=== PATIENT | male | born 1930 | race Caucasian/White ===

== ENCOUNTER 2016-08-23 11:17 | Day surgery (SDC) | payer MEDICARE ==
[~2016-08-23] VITALS: Ht 180.3 cm; Wt 91.8 kg
[~2016-08-23 11:17] MED LIST: ASPI81TA82 PO; ATOR40TA PO; CHOL4POW PO; COUM2.5T PO; COUM5TAB PO; FURO1TAB93 PO; ISOS30 PO; NITR0.4S SL; PANT20TA PO; PERC5TAB12 PO; POTA-243 PO; SERT25TA83 PO
[2016-08-23 12:18] VITALS: BP 112/56; PULSE 81; RESP 18; TEMP 98.1; O2SAT 97
[2016-08-23] MEDS ORDERED: TRAM50TA PO (12:23)
[2016-08-23] MEDS ORDERED: FURO40TA PO (12:23)
[2016-08-23] MEDS ORDERED: ATOR40TA16 PO (12:23)
[2016-08-23] MEDS ORDERED: WARF-18 PO (12:23)
[2016-08-23] MEDS ORDERED: WARF-23 PO (12:23)
[2016-08-23] MEDS ORDERED: VENTAER INH (12:23)
[2016-08-23] MEDS ORDERED: ALPR0.5T3 PO (12:23)
[2016-08-23] MEDS ORDERED: PANT20 PO (12:23)
[2016-08-23] MEDS ORDERED: POTA10CA PO (12:23)
[2016-08-23] MEDS ORDERED: HEPARIN-NS/PF INJ 500 ML ONE (13:56)
[2016-08-23] MEDS ORDERED: MIDAZOLAM HCL 2 MG/2 ML VIAL ONE (13:57)
[2016-08-23] MEDS ORDERED: IOHEXOL 350 MG/ML 100 ML BTL (for Cath Lab) OTHER ONE (16:02)
[2016-09-08] MEDS ORDERED: MORPHINE SULFATE 4 MG/ML INJ IV PRN (22:00)
[2016-09-09] MEDS ORDERED: HEPARIN SODIUM - IV 10,000 UNITS/10 ML VIAL ONE (09:41)
[2016-09-09] MEDS ORDERED: VANCOMYCIN HCL 1000 MG VIAL ONE (09:57)
[2016-09-09] MEDS ORDERED: BUPIVACAINE HCL PF 0.5% 30 ML VIAL ONE (11:04)
[2016-09-09] MEDS ORDERED: DO NOT ADM ANY ANTICOAGULANT DRUGS PRN (15:00)
--- NOTE | 2016-09-13 12:29 | MA ---
cc: RODRICK OLVERA MD DATE 08/23/2016 PROCEDURE PERFORMED Cardiac catheterization PROCEDURAL STATEMENT The patient was prepped and draped in the usual fashion. A 6-sheath was inserted percutaneously into the right femoral artery. Coronary angiography was done with Jaxon preformed catheters. Left ventriculography was done with a pigtail catheter. RESULTS Aortic pressure was 130/70. Left ventricular end-diastolic pressure was 15. There was no gradient across the aortic valve. CORONARY ANGIOGRAPHY The left main coronary artery was normal. The left anterior descending artery demonstrated no significant stenoses noted in the LAD or in its major branches. The left circumflex artery demonstrated some mild luminal irregularities at its origin, but no significant stenoses were seen. The right coronary artery was anatomically dominant. There is no significant stenoses noted. Noted on fluoroscopy that there was rather heavy calcification of the LAD and circumflex arteries. LEFT VENTRICULOGRAPHY Left ventriculography demonstrated a mildly dilated left ventricular cavity with an overall ejection fraction estimated at 25-30%. There was no gradient. No abnormality of the outflow track. No significant mitral regurgitation was seen. CONCLUSIONS The patient demonstrates essentially normal coronaries with rather severe left ventricular dysfunction and mild left ventricular dilatation. MD KENYA Fairbanks/WILD /12:27 PM /12:30 PM
== END 2016-08-23 19:14 | disposition home or self-care (01) ==
LOC: HDOC 11:17 → HDIC 11:18 → HDOC 19:14
PROVIDERS: ATTEND Internal Medicine Cardiovascular Disease
DX: I51.7 Cardiomegaly (principal); R07.89 Other chest pain; I48.91 Unspecified atrial fibrillation; I42.9 Cardiomyopathy, unspecified; Z87.891 Personal history of nicotine dependence
CPT/HCPCS: 93458; C1760; C1769; C1893; G0269; J1644; J2250; Q9967

== ENCOUNTER 2016-09-04 18:10 | Inpatient (IN) | payer MEDICARE ==
[2016-09-04] VITALS (10 sets, daily range): BP systolic 122–157; BP diastolic 62–76; PULSE 84–95; RESP 18–20; TEMP 97.6–98; O2SAT 88–100
[~2016-09-04] VITALS: Ht 180.3 cm; Wt 87.7 kg
[~2016-09-04 18:10] MED LIST changes: +ALPR0.5T3 PO; -ASPI81TA82 PO; -ATOR40TA PO; +ATOR40TA16 PO; -CHOL4POW PO; -COUM2.5T PO; -COUM5TAB PO; -FURO1TAB93 PO; +FURO40TA PO; -ISOS30 PO; -NITR0.4S SL; +PANT20 PO; -PANT20TA PO; -PERC5TAB12 PO; -POTA-243 PO; +POTA10CA PO; -SERT25TA83 PO; +TRAM50TA PO; +VENTAER INH; +WARF-18 PO; +WARF-23 PO
[2016-09-04] MEDS ORDERED: NITROGLYCERIN-DEXTROSE INJ 250 ML ONE (18:19)
[2016-09-04] MEDS ORDERED: ASPIRIN 325 MG TAB ONE ×2 (18:19→18:20)
[2016-09-04] MEDS ORDERED: HEPARIN SODIUM - IV 10,000 UNITS/10 ML VIAL ONE ×2 (18:20→18:57)
[2016-09-04] MEDS ORDERED: ASPIRIN 81 MG CHEW TAB PO STA (18:21)
[2016-09-04] MEDS ORDERED: HEPARIN-D5W INJ 250 ML ONE (18:23)
[2016-09-04] MEDS: HEPARIN-D5W INJ 250 ML IV SCH (18:29)
[2016-09-04] MEDS ORDERED: NITROGLYCERIN-DEXTROSE INJ 250 ML IV SCH (18:30)
[2016-09-04] MEDS ORDERED: HEPARIN SODIUM - IV 10,000 UNITS/10 ML VIAL IV ONE (18:30)
--- NOTE | 2016-09-04 18:38 | RADRPT ---
EXAM DATE/TIME: 09/04/2016 18:18 [place] COMPARISON: CHEST SINGLE AP, May 19, 2015, 16:55. INDICATIONS : Chest pains. STEMI alert. MEDICAL HISTORY : Atrial fibrillation. SURGICAL HISTORY : None. ENCOUNTER: Initial ACUITY: 1 day PAIN SCORE: 7/10 LOCATION: Chest, midline. FINDINGS: A single AP portable supine view of the chest was obtained and demonstrates mild cardiomegaly atheros clerotic changes in the aorta with calcification. There is no focal consolidation or effusion. There are multiple overlying electrocardiogram leads. The bony thorax remains intact. CONCLUSION: Mild cardiomegaly with no evidence of pulmonary edema. Olaf Butterfield MD on September 04, 2016 at 18:36 Board Certified Radiologist. This report was verified electronically.
[2016-09-04] MEDS ORDERED: IOHEXOL 350 MG/ML 100 ML BTL (for Cath Lab) OTHER ONE (18:55)
[2016-09-04] MEDS ORDERED: HEPARIN-NS/PF INJ 500 ML ONE ×3 (18:56→20:58)
[2016-09-04 18:58] LABS: I-STAT POTASSIUM 3.7 MMOL/L (3.5-4.9)
[2016-09-04] MEDS ORDERED: NITROGLYCERIN INJ 5 ML ONE (18:58)
[2016-09-04] MEDS ORDERED: MORPHINE SULFATE 4 MG/ML INJ IV PUSH ONE (19:00)
[2016-09-04 19:03] LABS: APTT (PATIENT) 27.3 SEC (24.3-30.1); INTERNATIONAL NORMALIZED RATIO 1.5 RATIO; PROTHROMBIN TIME - PATIENT 16.5 SEC (9.8-11.6)
[2016-09-04 19:04] LABS: BASOPHIL # 0.1 TH/MM3 (0-0.2); BASOPHIL % 0.7 % (0.0-2.0); EOSINOPHIL # 0.1 TH/MM3 (0-0.4); EOSINOPHIL % 1.4 % (0.0-4.0); HEMATOCRIT 43.8 % (39.0-51.0); HEMO FLAGS DIFF FINAL; LYMPH % 21.2 % (9.0-44.0); LYMPHOCYTE # 1.6 TH/MM3 (1.0-4.8); MEAN CELL VOLUME 94.2 FL (80.0-100.0); MEAN CORPUSCULAR HEMOGLOBIN 31.9 PG (27.0-34.0); MEAN CORPUSCULAR HGB CONC 33.8 % (32.0-36.0); MONO % 9.1 % (0.0-8.0); NEUT % 67.6 % (16.0-70.0); PLATELET COUNT 152 TH/MM3 (150-450); RED BLOOD COUNT 4.65 MIL/MM3 (4.50-5.90); RED CELL DISTRIBUTION WIDTH 14.3 % (11.6-17.2); WHITE BLOOD COUNT 7.4 TH/MM3 (4.0-11.0)
[2016-09-04 19:19] LABS: MAGNESIUM 2.2 MG/DL (1.5-2.5)
--- NOTE | 2016-09-04 19:31 | PD ---
HPI Chief Complaint: STEMI Alert Time Seen by Provider: 18:21 Travel History International Travel<30 days: No Contact w/Intl Traveler<30days: No Traveled to known affect area: No History of Present Illness HPI Patient is am 86 year old male with coronary artery disease, NM, CHF, coronary artery stents atrial fibrillation currently on Coumadin presents to ER with c/o of chest pain. Patient reports that chest pain began around 2:45pm while he was walking to his neighbors home. Reports that he was having "pressure/crushing pain to his chest." Reports that chest pain is substernal in nature and radiates to his right chest. Reports that he is feeling sob with his symptoms. PFSH Past Medical History Hx Anticoagulant Therapy: Yes (COUMADIN) Arthritis: Yes Asthma: Yes (uses inhaler, not used in 1 year) Atrial Fibrillation: Yes Autoimmune Disease: No Blood Disorders: No Anxiety: Yes Depression: No Heart Rhythm Problems: Yes (ATRIAL FIBRILATION ) Cancer: No Cardiac Catheterization: Yes Cardiovascular Problems: Yes High Cholesterol: Yes Chest Pain: Yes Congestive Heart Failure: Yes COPD: Yes Cerebrovascular Accident: Yes (TIA) Coronary Artery Disease: Yes Diabetes: No Diminished Hearing: No Endocrine: No Gastrointestinal Disorders: No GERD: Yes Glaucoma: No Genitourinary: No Headaches: Yes Hepatitis: No Hiatal Hernia: No Heparin Induced Thrombocytopen: No Hypertension: Yes Immune Disorder: No Implanted Vascular Access Dvce: No Kidney Stones: No Medical other: Yes (ARTHRITIS, BACK PROBLEMS, HX BRAIN CONCUSSION,? LEG BLOOD CLOTS) Musculoskeletal: Yes (LOWER BACK PAIN) Neurologic: No Psychiatric: No Reproductive: No Respiratory: Yes (COPD) Integumentary: No Immunizations Current: Yes Migraines: Yes Myocardial Infarction: Yes (X3) Renal Failure: No Seizures: No Sleep Apnea: No Thyroid Disease: No Ulcer: No PNEUMOCCOCAL Vaccine (Year): 2009 Past Surgical History Abdominal Surgery: No AICD: No Appendectomy: No Arteriovenous Shunt: No Body Medical Devices: PLATE IN RIGHT WRIST, 2 HEART STENTS, LT HIP Cardiac Surgery: No Cholecystectomy: No Coronary Artery Bypass Graft: No Coronary Stent: Yes (X2; MOST RECENT WAS 2009) Ear Surgery: No Eye Surgery: Yes (LEFT CATARACT) Insulin Pump: No Joint Replacement: No Neurologic Surgery: No Oral Surgery: Yes Pacemaker: No Thoracic Surgery: No Tonsillectomy: Yes Other Surgery: Yes Social History Alcohol Use: Yes (WINE SELDOM) Tobacco Use: No (HX) Substance Use: No Allergies-Medications (Allergen,Severity, Reaction): Coded Allergies: Penicillin (Verified Allergy, Severe, EDEMA, HIVES, 05/19/15) Reported Meds & Prescriptions Reported Meds & Active Scripts Active Reported Warfarin 5 Mg Tab 5 Mg PO DAILY Warfarin 2.5 Mg Tab 2.5 Mg PO DAILY Ventolin Hfa 18 GM Inh (Albuterol Sulfate) 90 Mcg/Act Aer 2 Puff INH Q4-6H PRN Potassium Chloride ER (Potassium Chloride) 10 Meq Cap 10 Meq PO BID Furosemide 40 Mg Tab 40 Mg PO BID Atorvastatin (Atorvastatin Calcium) 40 Mg Tab 40 Mg PO HS Alprazolam 0.5 Mg Tab 0.5 Mg PO Q4H PRN Review of Systems General / Constitutional: No: Fever Eyes: No: Visual changes HENT: No: Headaches Cardiovascular: Positive: Chest Pain or Discomfort Respiratory: Positive: Shortness of Breath Gastrointestinal: No: Abdominal Pain Genitourinary: No: Dysuria Musculoskeletal: No: Pain Skin: No Rash Neurologic: No: Weakness Psychiatric: No: Depression Endocrine: No: Polydipsia Hematologic/Lymphatic: No: Easy Bruising Physical Exam Narrative GENERAL: Severe distress, patient holding his chest wall complaining of chest pain SKIN: Focused skin assessment warm. Patient diaphoretic during exam HEAD: Atraumatic. Normocephalic. EYES:No injection or drainage. ENT: No nasal bleeding or discharge. Mucous membranes pink and moist. NECK: Trachea midline. No JVD. CARDIOVASCULAR: Regular rate and rhythm. No murmur appreciated. RESPIRATORY: No accessory muscle use. Clear to auscultation. Breath sounds equal bilaterally. GASTROINTESTINAL: Abdomen soft, non-tender, nondistended. Hepatic and splenic margins not palpable. MUSCULOSKELETAL: No obvious deformities. No clubbing. No cyanosis. No edema. NEUROLOGICAL: Awake and alert. No obvious cranial nerve deficits. Motor grossly within normal limits. Normal speech. PSYCHIATRIC: anxious Data Data Last Documented VS Vital Signs Date Time Temp Pulse Resp B/P Pulse Ox O2 Delivery O2 Flow Rate FiO2 09/04/16 18:49 84 18 124/71 97 Nasal Cannula 2 09/04/16 18:15 98.0 Orders Aspirin (Aspirin) (09/04/16 18:19) Nitroglycerin-Dextrose Inj (Nitroglyceri (09/04/16 18:19) Heparin Inj (Heparin Inj) (09/04/16 18:20) Aspirin (Aspirin) (09/04/16 18:20) Troponin I (09/04/16 18:21) Ckmb (Isoenzyme) Profile (09/04/16 18:21) Complete Blood Count With Diff (09/04/16 18:21) I-Stat Profile (09/04/16 18:21) I-Stat Creatinine (09/04/16 18:21) Magnesium (Mg) (09/04/16 18:21) Prothrombin Time / Inr (Pt) (09/04/16 18:21) Act Partial Throm Time (Ptt) (09/04/16 18:21) B-Type Natriuretic Peptide (09/04/16 18:21) Chest, Single Ap (09/04/16 18:21) Electrocardiogram (09/04/16 18:21) Oxygen Administration (09/04/16 18:21) Iv Access Insert/Monitor (09/04/16 18:21) Oximetry (09/04/16 18:21) Aspirin Chew (Aspirin Chew) (09/04/16 18:21) Heparin Infusion MERON.Q1H (09/04/16 18:23) Heparin-D5w Inj (Heparin-D5w Inj) (09/04/16 18:23) Heparin Inj (Heparin Inj) (09/04/16 18:30) Heparin Inj (Heparin Inj) (09/05/16 00:30) Heparin Inj (Heparin Inj) (09/05/16 00:30) Heparin-D5w Inj (Heparin-D5w Inj) (09/04/16 18:30) Nitroglycerin-Dextrose Inj (Nitroglyceri (09/04/16 18:30) Morphine Inj (Morphine Inj) (09/04/16 19:00) Heparin-Ns/Pf Inj (Heparin-Ns/Pf Inj) (09/04/16 18:56) Heparin Inj (Heparin Inj) (09/04/16 18:57) Nitroglycerin Inj (Nitroglycerin Inj) (09/04/16 18:58) Cardiac Catheterization (09/04/16 ) Heparin-Ns/Pf Inj (Heparin-Ns/Pf Inj) (09/04/16 19:34) Labs Laboratory Tests Test 09/04/16 18:28 White Blood Count 7.4 TH/MM3 Red Blood Count 4.65 MIL/MM3 Hemoglobin 14.8 GM/DL Bedside Hemoglobin 14.6 G/DL Hematocrit 43.8 % Bedside Hematocrit 43.0 % Mean Corpuscular Volume 94.2 FL Mean Corpuscular Hemoglobin 31.9 PG Mean Corpuscular Hemoglobin 33.8 % Concent Red Cell Distribution Width 14.3 % Platelet Count 152 TH/MM3 Mean Platelet Volume 8.8 FL Neutrophils (%) (Auto) 67.6 % Lymphocytes (%) (Auto) 21.2 % Monocytes (%) (Auto) 9.1 % Eosinophils (%) (Auto) 1.4 % Basophils (%) (Auto) 0.7 % Neutrophils # (Auto) 5.0 TH/MM3 Lymphocytes # (Auto) 1.6 TH/MM3 Monocytes # (Auto) 0.7 TH/MM3 Eosinophils # (Auto) 0.1 TH/MM3 Basophils # (Auto) 0.1 TH/MM3 CBC Comment DIFF FINAL Differential Comment Prothrombin Time 16.5 SEC Prothromb Time International 1.5 RATIO Ratio Activated Partial 27.3 SEC Thromboplast Time Bedside Sodium 142 MMOL/L Bedside Potassium 3.7 MMOL/L Bedside Chloride 105 MMOL/L Bedside Blood Urea Nitrogen 16 MG/DL Bedside Creatinine 1.1 MG/DL Bedside Glucose 164 MG/DL Magnesium Level 2.2 MG/DL Total Creatine Kinase 64 U/L Troponin I 0.07 NG/ML B-Type Natriuretic Peptide 365 PG/ML MDM Medical Decision Making Medical Screen Exam Complete: Yes Emergency Medical Condition: Yes Interpretation(s) Vital Signs Date Time Temp Pulse Resp B/P Pulse Ox O2 Delivery O2 Flow Rate FiO2 09/04/16 18:49 84 18 124/71 97 Nasal Cannula 2 09/04/16 18:48 88 20 152/75 97 Nasal Cannula 2 09/04/16 18:42 94 18 122/73 97 Nasal Cannula 2 09/04/16 18:41 97 Nasal Cannula 2 09/04/16 18:41 97 Nasal Cannula 2 09/04/16 18:23 98 Nasal Cannula 2.00 09/04/16 18:20 107 18 97 Nasal Cannula 2 09/04/16 18:15 98.0 95 20 130/76 99 Differential Diagnosis Differential includes ACS, coronary artery disease, arrhythmia, aortic dissection, PE, electrolyte abnormality Narrative Course A 86-year-old male who presents to emergency room complaints of chest pain which started around 2:45 PM today. Press Maintainer is Dr. Zaragoza - reports history of 2 cardiac stents Patient diaphoretic, complaining of crushing chest pain, EKG reviewed, patient with abnormal EKG. Patient was concerning ST segment changes on EKG, a STEMI alert was called overhead. Case is reviewed with Dr. Sandoval, he will perform cardiac catheterization. I-STAT labs obtained. Patient was given heparin bolus as well as, heparin drip. A full dose of Aspirin was administered, a nitro drip was also started. Patient was brought to the medical laboratory technologist by myself as well as BUSINESS ASSOCIATE's until cath team arrived to hospital. 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 Zaragoza did perform a cardiac cath 2 weeks ago and he was told that his coronary arteries were "clean". This was relayed to the cath team Critical Care Narrative Aggregate critical care time was 30 minutes. Time to perform other separately billable procedures was not included in the critical care time. My time did not include minutes spent treating any other patients simultaneously or on activities that did not directly contribute to the patient's treatment. The services I provided to this patient were to treat and/or prevent clinically significant deterioration that could result in: , decompensation, deterioration I provided critical care services requiring my management, as noted below: Chart data review, documentation time, medication orders and management, vital sign assessments/reviewing monitor data, ordering and reviewing lab tests, ordering and interpreting/reviewing x-rays and diagnostic studies, care of the patient and discussion of the patient with the admitting physicians. Diagnosis Primary Impression: ST elevation NM (STEMI) Qualified Code: I21.3 - ST elevation myocardial infarction (STEMI), unspecified artery Admitting Information Admitting Physician Requests: Admit Maryjane Arnett DO Sep 04, 2016 19:31
[2016-09-04] MEDS ORDERED: ADENOSINE IV SOLN 3 MG/ML 2 ML VIAL ONE (20:21)
[2016-09-04] MEDS ORDERED: EPINEPHrine HCL (1:10,000) 1 MG/10 ML SYRINGE ONE (20:32)
[2016-09-04] MEDS ORDERED: METOPROLOL TARTRATE 5 MG/5 ML VIAL ONE (20:33)
[2016-09-04] MEDS ORDERED: CLOPIDOGREL 300 MG TAB ONE (20:59)
[2016-09-04] MEDS ORDERED: ACETAMINOPHEN 325 MG TAB PO PRN (21:45)
[2016-09-04] MEDS ORDERED: ALBUTEROL SULFATE 90 MCG/ACT HFA 18 GM INHALER INH PRN (22:00)
--- NOTE | 2016-09-04 22:03 | CATHPROC ---
[employer] HIS Report Study Information Study Number Admission Scheduled Start Study Start [id number] Sep 04 2016 6:10PM 09/04/2016 Sep 04 2016 7:09PM [place] Service Cardiac Catheterization Admit Source Facility Department Emergency department [facility] - Service Plumber Physician and Clinical Staff Initial Chandra Barrera Finished Hardware Erector Maryjane Garcia,LUKE Finished Hardware Erector Denae Mayen,LUKE Recorder Phyllis Lomax,(R) (BS) Scrub Sandeep Bahena RCIS(BS) Procedures Performed Procedure Location (Site) Vessel Name Coronary Angiograms LCA Left Coronary Coronary Angiograms RCA Right Coronary IABP Fem Art (left) Femoral Art L Heart Cath PTCA LAD Mid Left Coronary Stent LAD Mid Left Coronary Wire insertion Fem Art (right) Femoral Art Equipment Time Resident Services Director Description Size Mfg Part Number Used/Scraped [id number] 20:06 [employer] STENT, 2.0 12 MINI-VISION RX 2.0 12 Used *[id number] WIRE, BALANCE MIDDLEWEIGHT [id number] 19:45 [employer] 190CM Used 190CM *[id number] WIRE, BALANCE MIDDLEWEIGHT [id number] 19:23 [employer] 190CM Used 190CM *[id number] TRANSDUCER, TRUWAVE [id number] 19:18 GUTIERREZ SOLORIO * Used W/STOCKCOCK *[id number] INTRODUCER SET, [id number] 19:14 [employer] FR 5 Used MICROPUNCTURE *[id number] [id number] *[id number] 534-521T *[id number] PIGTAIL ANG. 145 INFINITI 534-652S CATHETER *[id number] 20:53 MAQUET BALLOON, FR8 50CC FR 8 50CC Used 01U [id number] 19:18 [employer] PACK, CCL CUSTOM * Used *[id number] 19:33 MEDTRONIC BALLOON, 2.0 X 12MM EUPHORA 12MM Used *[id number] BALLOON, 2.0 X 8MM NC [id number] 20:22 MEDTRONIC 8MM Used EUPHORA *[id number] 19:24 MEDTRONIC/AVE EBU 4.0 Z2 GUIDE CATHETER FR 6 Used *[id number] 19:38 [employer] 30 DAWSON INDEFLATOR Used *[id number] [id number] 20:13 [employer] 30 DAWSON INDEFLATOR Used *[id number] 19:18 [employer] MEDICAL SHEATH, FR5.5 PRELUDE 11CM FR 5 [id number] Used [id number] 19:12 [employer] MEDICAL SHEATH, FR6.5 PRELUDE 11CM FR 6.5 038ACT Used *[id number] [id number] 19:18 [employer] MEDICAL WIRE, 3MMJ .035 180CM 180CM Used *[id number] 19:18 NAMIC MANIFOLD, 4 PORT * Used *0283122 19:18 [employer]COMED OMNIPAQUE, 350 MG, 150ML 150ML [id number] Used [id number] 19:18 [employer]or [employer] MEDICAL BLANKET,WARM AIR CCL * Used *[id number] 19:16 TERUMO MEDICAL SHEATH, FR6 TERUMO (10CM) FR 6 [id number] Used Equipment Model, Serial, Lot Number and Expiration Data Description Model Number Serial Number Lot Number Expiration Date SHEATH, FR6.5 PRELUDE 11CM [id number] 02-26-2019 STENT, 2.0 12 MINI-VISION RX [id number] 02-26-2019 History: Current Medications Medication Dosage/Unit Route Frequency Last Date/Time Taken ASA HEPARIN Coumadin History: Allergies Allergy Reaction Penicillin EDEMA, HIVES History: Risk Factors Family History of Hypertension Dyslipidemia Previous PR Previous Heart Failure Premature CAD Yes Yes No Yes No Prior Valve Prior PCI Prior CABG Surgery No Yes No Cerebrovascular Peripheral Artery Chronic Lung On Dialysis Diabetes Disease Disease Disease No Yes Yes No No History: Symptoms/Diagnosis Selection Items Chest pain History: Stress Tests Stress or Imaging Studies Performed No History: Other Current Smoker Method Quit Packs a Day Years Used Pack Years No Cigarettes 54 Years Ago 1 15 15 Labs Hgb (g/dl) Hct (%) RBC (MIL/MM3) WBC (l/cumm) Platelets (thousands) 11.60-17.00 35.00-51.00 4.00-5.90 4.00-11.00 150.00-450.00 14.8 43.8 4.6 7.4 152 Glucose (mg/dl) BUN (mg/dl) Creatinine (mg/dl) BUN:Creatinine (1:x) 74.00-106.00 7.00-18.00 0.50-1.30 10.00-20.00 164 16 1.1 14.5 Na (meq/l) K (meq/l) Cl (meq/l) 136.00-145.00 3.50-5.10 98.00-107.00 142 3.7 105 PT (sec) INR (PTT:PT) 9.80-11.60 0.90-1.10 16.5 1.5 Troponin I (ng/ml) CPK-MB (ng/ML) 0.02-0.05 0.50-3.60 0.07 Not Drawn Medication Medication Total Dose (Bolus/Oral) Medication Total Dosage/Unit 1% XYLOCAINE 20 mL ADENOSINE 18 mcg EPINEPHRINE 02/999 0.3 mg HEPARIN 5400 units NTG (IC) 400 mcg PLAVIX 600 mg Medications (Bolus/Oral) Medication Time Given Dosage/Unit Administered By Reason 1% XYLOCAINE 09/04/2016 7:13:10 PM 20 mL Chandra Sandoval 20 mL 1% XYLOCAINE given in lab by Chandra Sandoval in Right Groin via Subcutaneous. HEPARIN 09/04/2016 7:27:12 PM 5400 units Maryjane Garcia 5400 units HEPARIN given in lab by Maryjane Garcia, LUKE in Right Forearm via Peripheral IV. NTG (IC) 09/04/2016 8:16:35 PM 200 mcg Chandra Sandoval 200 mcg NTG (IC) given in lab by Chandra Sandoval in Right Groin via Intra-coronary. ADENOSINE 09/04/2016 8:25:45 PM 18 mcg Chandra Sandoval 18 mcg ADENOSINE given in lab by Chandra Sandoval in Right Groin via Intra-coronary. EPINEPHRINE 02/999 09/04/2016 8:27:22 PM 0.3 mg Maryjane Garcia 0.3 mg EPINEPHRINE 02/999 given in lab by Maryjane Garcia, LUKE in Right Forearm via Peripheral IV. NTG (IC) 09/04/2016 8:50:17 PM 200 mcg Chandra Sandoval 200 mcg NTG (IC) given in lab by Chandra Sandoval in Right Groin via Intra-coronary. PLAVIX 09/04/2016 9:02:26 PM 600 mg Denae Mayen 600 mg PLAVIX given in lab by Denae Mayen, LUKE via Oral. Medication (Drip) Medication Time Given Dosage/Unit Concentration/Unit Diluent (ml) Solution HEPARIN DRIP 09/04/2016 8:54:27 PM 1000 units/hr 05862 units 250 D5W 1000 units/hr HEPARIN DRIP given in lab by Chandra Sandoval in Right Forearm via Peripheral IV. Pump /Drip Flow = 10 ml/hr using D5[place] [address] units in 250 ml. IV Solutions 09/04/2016 7:00:42 PM 0 mL (IV) 1000 NaCl .9 Patient arrived on IV Solutions in Right Forearm via Peripheral IV. Pump/Drip Flow = 20 ml/hr using N aCl .9. NITROGLYCERIN DRIP 09/04/2016 7:00:50 PM 20 mcg/min 50 mg 250 D5W Patient arrived on 20 mcg/min NITROGLYCERIN DRIP in Right Forearm via Peripheral IV. Pump/Drip Flow = 6 ml/hr using D5W with a concentration of 50 mg in 250 ml. Initial Case Assessment Cardiovascular HR Rhythm NIBP Chest Pain 111 irr 134/84 10 Edema Present Skin color Skin None Normal Warm Dry Circulatory - Right Pulses Dorsalis Pedis Femoral 1 1 Scale (0,1,2,3,4,d) Circulatory - Left Pulses Dorsalis Pedis Femoral 1 1 Scale (0,1,2,3,4,d) Circulatory - Lower Extremities Color Lower Right Color Lower Left Normal Normal Neurological State Oriented to time-place- Alert Moves all extremities person Respiration - General Respiration Rate SpO2 (%) O2 (lpm) (B/min) 13 98 2 Chronological Log Time Study Chronological Log 18:55:23 Patient arrived via Bed. 18:55:45 Disposable Defibrillator Pads Placed On Patient. 19:00:42 Patient arrived on IV Solutions in Right Forearm via Peripheral IV. Pump/Drip Flow = 20 ml/ hr using NaCl .9. Patient arrived on 20 mcg/min NITROGLYCERIN DRIP in Right Forearm via Peripheral IV. Pump/Drip Flow = 6 ml/hr 19:00:50 using D5W with a concentration of 50 mg in 250 ml. 19:03:30 Bilateral groins prepped with 2% chlorhexidine, and with a 3 min. waiting time. Vitals capture started with the following parameters, Patient=Adult, Interval=5 min, Initial Pr kxlrfl=953 mmHg, 19:09:09 Deflation Rate=5 mmHg 19:09:35 Patient Name, D.O.B, / Armband Verified By R.N. 19:09:36 Consent signed by the physician and the patient and verified by the Service Plumber staff. 19:09:36 Pre-op and post- op instructions given; patient acknowledges understanding of instructions. 19:09:37 Verbal Stimulation=2 Physical Stimulation=2 Airway=2 Respiration=2 TOTAL=8. (0=absent, 1=li mited, 2=present) 19:09:40 Immediate Presedation assesment performed by physician. 19:09:41 Skin Breakdown none per pt 19:09:43 Patient Warmer Placed on the Table. 19:09:44 Juvenal Prominences Protected 19:09:50 A # 20 IV was noted in the Forearm (right). Grade = 0 19:09:51 HR=97 bpm, GKTT=350/84 mmhg, SpO2=99.0 %, Resp=17 B/min, Pain=10, Shantell=10, Ochoa=2 19:09:54 History and physical on the chart or being dictated. 19:09:54 History and physical on the chart or being dictated. Assessment: Initial Case, BG=259 BPM, Rhythm=irr, UQRR=670/84 mmhg, Chest Pain=10, Edema=None, Color=Normal, Skin = Warm, Dry Right Pulses: Zeb Ped=1, Femoral=1 Left Pulses: Zeb Ped=1, Femoral=1 19:09:55 Lower Right Extremities: Color=Normal Lower Left Extremities: Color=Normal Neurological: State=Alert, Ox3, SANTANA Respiration: Resp=13 B/min, SpO2=98 %, O2=2 lpm Time Out. Correct patient, correct procedure,correct physician, ,power injector loaded or not l oaded with contrast with 19:10:03 surgical team present. Time Out Concurred by MD, individual staff and CORPORATE OPERATIONS COMPLIANCE MANAGER in procedure 19:10:24 Reference ECG taken 19:10:48 Pressure channel 1 zeroed. :11:43 Case Start 19:13:10 20 mL 1% XYLOCAINE given in lab by Chandra Sandoval in Right Groin via Subcutaneous. 19:13:23 Access site was Right Femoral Artery. 19:13:34 A INTRODUCER SET, MICROPUNCTURE FR 5 was advanced into the Fem Art (right) using the Percut aneous technique. A SHEATH, FR6.5 PRELUDE 11CM FR 6.5 was exchanged in the Fem Art (right). This was necessary in order to 19:14:05 accomodate a larger catheter. 19:14:50 HR=76 bpm, OASI=629/80 mmhg, SpO2=95.0 %, Resp=19 B/min, Pain=10, Shantell=10, Ochoa=2 19:17:28 An injection in the Fem Art (right) was made through the SHEATH, FR6 TERUMO (10CM) FR 6. A JR 4.0 INFINITI CATHETER FR 5 was advanced over a wire. OMNIPAQUE, 350 MG, 150ML 150ML was us ed for 19:17:39 injections. Recorded Pressure: Ao, HR=82, Condition=Condition 1 19:19:07 (Aorta) Ao 139/69/99 19:19:44 The RCA was injected and visualized at various angles. OMNIPAQUE, 350 MG, 150ML 150ML used . 19:19:49 HR=91 bpm, HDRF=963/83 mmhg, SpO2=99.0 %, Resp=21 B/min, Pain=10, Shantell=10, Ochoa=2 19:19:58 Catheter was removed A JL 4.0 INFINITI CATHETER FR 6 was advanced over a wire. OMNIPAQUE, 350 MG, 150ML 150ML was us ed for 19:20:50 injections. 19:23:08 The LCA was injected and visualized at various angles. OMNIPAQUE, 350 MG, 150ML 150ML used . 19:24:50 HR=87 bpm, PWAY=524/86 mmhg, SpO2=96.0 %, Resp=24 B/min, Pain=7, Shantell=10, Ochoa=2 19:27:12 5400 units HEPARIN given in lab by Maryjane Garcia, RN in Right Forearm via Peripheral IV. A EBU 4.0 Z2 GUIDE CATHETER FR 6 was advanced over a wire. OMNIPAQUE, 350 MG, 150ML 150ML was u sed for 19:27:28 injections. 19:29:19 A WIRE, BALANCE MIDDLEWEIGHT 190CM 190CM was inserted via Fem Art (right). 19:29:55 HR=81 bpm, QROD=883/67 mmhg, SpO2=96.0 %, Resp=14 B/min, Pain=7, Shantell=10, Ochoa=2 19:34:46 HR=77 bpm, MSXW=976/85 mmhg, SpO2=99.0 %, Resp=14 B/min, Pain=7, Shantell=10, Ochoa=2 19:35:01 Interventional wire has crossed the lesion A BALLOON, 2.0 X 12MM EUPHORA 12MM was inserted over WIRE, BALANCE MIDDLEWEIGHT 190CM 190CM via the 19:36:33 Fem Art (right). A BALLOON, 2.0 X 12MM EUPHORA 12MM over a WIRE, BALANCE MIDDLEWEIGHT 190CM 190CM in the LAD Mid was 19:37:02 inflated using a 30 DAWSON INDEFLATOR at 8 dawson for 15 sec. A BALLOON, 2.0 X 12MM EUPHORA 12MM over a WIRE, BALANCE MIDDLEWEIGHT 190CM 190CM in the LAD Mid was 19:37:45 inflated using a 30 DAWSON INDEFLATOR at 10 dawson for 10 sec. 19:38:32 Balloon Removed 19:39:49 HR=86 bpm, TXVB=800/85 mmhg, SpO2=97.0 %, Resp=14 B/min, Pain=7, Shantell=10, Ochoa=2 19:44:52 HR=84 bpm, ISFK=141/86 mmhg, SpO2=97.0 %, Resp=19 B/min, Pain=7, Shantell=10, Ochoa=2 19:48:00 A WIRE, BALANCE MIDDLEWEIGHT 190CM 190CM was inserted via Fem Art (right). 19:49:53 HR=82 bpm, NTMA=504/89 mmhg, SpO2=99.0 %, Resp=14 B/min, Pain=7, Shantell=10, Ochoa=2 19:50:08 Wire removed first BMW A BALLOON, 2.0 X 12MM EUPHORA 12MM was inserted over WIRE, BALANCE MIDDLEWEIGHT 190CM 190CM via the 19:54:21 Fem Art (right). 19:54:58 HR=88 bpm, AFFN=236/74 mmhg, SpO2=97.0 %, Resp=12 B/min, Pain=1 19:59:51 HR=91 bpm, RYRE=223/88 mmhg, LyM5=555.0 %, Resp=13 B/min, Pain=7, Shantell=10, Ochoa=2 A BALLOON, 2.0 X 12MM EUPHORA 12MM over a WIRE, BALANCE MIDDLEWEIGHT 190CM 190CM in the LAD Mid was 20:03:17 inflated using a 30 DAWSON INDEFLATOR at 12 dawson for 10 sec. 20:03:43 Balloon Removed 20:04:54 HR=93 bpm, YRER=930/87 mmhg, SpO2=99.0 %, Resp=16 B/min, Pain=7, Shantell=10, Ochoa=2 An STENT, 2.0 12 MINI-VISION RX 2.0 12 Bare Metal Stent was inserted through a EBU 4.0 Z2 GUIDE CATHETER FR 20:08:12 6 over a WIRE, BALANCE MIDDLEWEIGHT 190CM 190CM. A STENT, 2.0 12 MINI-VISION RX 2.0 12 was deployed using a 30 DAWSON INDEFLATOR at 8 atmospheres f or 15 seconds 20:08:42 in the LAD Mid. 20:09:55 HR=90 bpm, JLHY=669/86 mmhg, SpO2=98.0 %, Resp=16 B/min, Pain=7, Shantell=10, Ochoa=2 20:10:05 Delivery device removed 20:10:26 Patient voiced chest pain subsiding/improving 20:10:55 Activated Clotting Time Drawn 20:14:50 HR=93 bpm, JPHU=272/85 mmhg, SpO2=98.0 %, Resp=17 B/min, Pain=4, Shantell=10, Ochoa=2 20:16:13 ACT (Normal Range 90-180) = 330 20:16:35 200 mcg NTG (IC) given in lab by Chandra Sandoval in Right Groin via Intra-coronary. 20:19:57 ZG=104 bpm, YRRE=413/68 mmhg, SpO2=95.0 %, Resp=14 B/min, Pain=4, Shantell=10, Ochoa=2 A BALLOON, 2.0 X 8MM NC EUPHORA 8MM was inserted over WIRE, BALANCE MIDDLEWEIGHT 190CM 190CM vi a the 20:21:46 Fem Art (right). A BALLOON, 2.0 X 8MM NC EUPHORA 8MM over a WIRE, BALANCE MIDDLEWEIGHT 190CM 190CM in the LAD Mi d was 20:23:11 inflated using a 30 DAWSON INDEFLATOR at 20 dawson for 20 sec. 20:24:06 Balloon Removed 20:24:56 HR=94 bpm, MCWM=893/84 mmhg, SpO2=97.0 %, Resp=22 B/min, Pain=4, Shantell=10, Ochoa=2 20:25:45 18 mcg ADENOSINE given in lab by Chandra Sandoval in Right Groin via Intra-coronary. 20:27:22 0.3 mg EPINEPHRINE 02/999 given in lab by Maryjane Garcia RN in Right Forearm via Peripher al IV. 20:28:55 CPR started 20:29:25 CPR stopped 20:30:00 HR=70 bpm, AECZ=751/68 mmhg, SpO2=56.0 %, Resp=27 B/min, Pain=4, Shantell=10, Ochoa=2 20:36:12 CU=391 bpm, TNSS=118/123 mmhg, SpO2=86.0 %, Resp=27 B/min, Pain=4, Shantell=10, Ochoa=2 20:40:04 NC=861 bpm, VHBU=379/75 mmhg, Resp=31 B/min, Pain=4, Shantell=10, Ochoa=2 20:42:25 Access site was Left Femoral Artery. 20:43:41 A baloon pump sheath was advanced into the Fem Art (right) using the Percutaneous technique . 20:44:59 TS=087 bpm, EFLP=151/69 mmhg, SpO2=83.0 %, Resp=29 B/min, Pain=2, Shantell=10, Ochoa=2 An BALLOON, FR8 50CC FR 8 50CC was advanced to the descending aorta. Proper placement was confi red under 20:47:10 fluoroscopy and the balloon was sutured in place. Ratio = 1. Augmented BP ~SYS~/~RAYMOND~ 20:49:58 HX=603 bpm, IMNV=331/77 mmhg, ZiZ3=450.0 %, Resp=22 B/min, Pain=1 20:50:17 200 mcg NTG (IC) given in lab by Chandra Sandoval in Right Groin via Intra-coronary. 20:54:14 Catheter was removed 1000 units/hr HEPARIN DRIP given in lab by Chandra Sandoval in Right Forearm via Peripheral IV . Pump/Drip Flow = 10 20:54:27 ml/hr [place] [address] units in 250 ml. 20:54:59 OJ=428 bpm, URPQ=748/74 mmhg, KqT9=278.0 %, Resp=24 B/min, Pain=1 Recorded Pressure: LV, GN=632, Condition=Condition 1 20:56:20 (Left Ventricle) LV 119/20/27 Recorded Pressure: LV, Ao, QQ=085, Condition=Condition 1 20:56:32 (Left Ventricle) LV 123/21/30, (Aorta) Ao 120/66/88 A JR 4.0 INFINITI CATHETER FR 5 was advanced over a wire. OMNIPAQUE, 350 MG, 150ML 150ML was us ed for 20:58:50 injections. 20:59:50 The RCA was injected and visualized at various angles. OMNIPAQUE, 350 MG, 150ML 150ML used . 20:59:58 IO=626 bpm, UFOH=804/86 mmhg, InJ2=544.0 %, Resp=26 B/min, Pain=1 21:01:59 Catheter was removed 21:02:13 Case End 21:02:26 600 mg PLAVIX given in lab by Denae Mayen, LUKE via Oral. 21:04:07 Catheter(s) removed without difficulty 21:04:10 In the Fem Art (right) the SHEATH, FR6 TERUMO (10CM) FR [address] by Jacob Bahena RCIS(BS). 21:04:26 Cine recording checked. 21:04:32 Bedside Report will be given. 21:04:34 Implantable Device card placed in patient's chart. 21:04:38 A Left Heart Cath was performed. 21:05:36 TT=272 bpm, QSTF=978/123 mmhg, DnD6=748.0 %, Resp=26 B/min, Pain=3 21:10:31 OV=904 bpm, MCNJ=401/75 mmhg, ViA3=400.0 %, Resp=26 B/min, Pain=3 21:15:56 WW=751 bpm, FSEF=298/62 mmhg, VaM5=921.0 %, Resp=16 B/min, Pain=3 21:20:08 HR=97 bpm, QFWJ=274/77 mmhg, SsM6=118.0 %, Resp=24 B/min, Pain=3 21:25:50 FH=835 bpm, ZCBU=946/139 mmhg, UhQ6=440.0 %, Resp=17 B/min, Pain=3 21:31:32 YQKA=103/119 mmhg, SpO2=96.0 %, Pain=3 21:31:38 Vitals capture stopped. 21:33:50 Patient moved to stretcher End Study - Contrast Media Used In Study Contrast Total Opened (mL) Total Used (mL) Total Wasted (mL) Omnipaque 300 300 0 End Study - Maximum Contrast Load Max Contrast Load (mL) 413.2 End Study - Radiation Exposure Fluoro Time (minutes) 29.5 End Study - Patient Disposition Complications Transferred To Interventional Outcome No Critical Care Bed successful
[2016-09-04] MEDS ORDERED: CHLORHEXIDINE GLUCONATE 2 % 1 PACK (2 CLOTHS)(extra cloths) TOPICAL PRN (22:30)
--- NOTE | 2016-09-04 23:21 | PD.CONS ---
HPI Service Critical Care Medicine Consult Requested By Primary Care Physician Unknown Past Family Social History Allergies: Coded Allergies: Penicillin (Verified Allergy, Severe, EDEMA, HIVES, 05/19/15) Physical Exam Vital Signs Vital Signs Date Time Temp Pulse Resp B/P Pulse Ox O2 Delivery O2 Flow Rate FiO2 09/04/16 22:18 97.6 92 20 157/62 97 09/04/16 18:49 84 18 124/71 97 Nasal Cannula 2 09/04/16 18:48 88 20 152/75 97 Nasal Cannula 2 09/04/16 18:42 94 18 122/73 97 Nasal Cannula 2 09/04/16 18:41 97 Nasal Cannula 2 09/04/16 18:41 97 Nasal Cannula 2 09/04/16 18:23 98 Nasal Cannula 2.00 09/04/16 18:20 107 18 97 Nasal Cannula 2 09/04/16 18:15 98.0 95 20 130/76 99 Laboratory Laboratory Tests Test 09/04/16 18:28 White Blood Count 7.4 Red Blood Count 4.65 Hemoglobin 14.8 Bedside Hemoglobin 14.6 Hematocrit 43.8 Bedside Hematocrit 43.0 Mean Corpuscular Volume 94.2 Mean Corpuscular Hemoglobin 31.9 Mean Corpuscular Hemoglobin 33.8 Concent Red Cell Distribution Width 14.3 Platelet Count 152 Mean Platelet Volume 8.8 Neutrophils (%) (Auto) 67.6 Lymphocytes (%) (Auto) 21.2 Monocytes (%) (Auto) 9.1 Eosinophils (%) (Auto) 1.4 Basophils (%) (Auto) 0.7 Neutrophils # (Auto) 5.0 Lymphocytes # (Auto) 1.6 Monocytes # (Auto) 0.7 Eosinophils # (Auto) 0.1 Basophils # (Auto) 0.1 CBC Comment DIFF FINAL Differential Comment Prothrombin Time 16.5 Prothromb Time International 1.5 Ratio Activated Partial 27.3 Thromboplast Time Bedside Sodium 142 Bedside Potassium 3.7 Bedside Chloride 105 Bedside Blood Urea Nitrogen 16 Bedside Creatinine 1.1 Bedside Glucose 164 Magnesium Level 2.2 Total Creatine Kinase 64 Troponin I 0.07 B-Type Natriuretic Peptide 365 Result Diagram: 09/04/16 1828 Shawna Maxwell MD Sep 04, 2016 23:21
--- NOTE | 2016-09-04 23:55 | PD.CONS ---
HPI Service Critical Care Medicine Consult Requested By Dr. Sandoval Reason for Consult Respiratory distress, shock s/p STEMI Primary Care Physician Unknown History of Present Illness 86 yo WM with past history of coronary artery disease with prior ID and stents x2, chronic systolic heart failure with EF 20-35%, atrial fibrillation on chronic anticoagulation with warfarin, who presents to [facility] emergency department complaining of chest pain. He stated to the ED physician that his pain started around 14:45 on 09/04 and was described as "pressure/ crushing pain" in his substernal region and radiating to his right chest with associated SOB. EKG demonstrated LBBB with discordant elevation >5 mm in V2 and V3 and with concordant elevation in V4. STEMI alert was called and he was taken emergently to cardiac [employer] by Dr. Senia Sandoval. He underwent LHC with bare metal stent to LAD. EF was 20%. He became hypotensive after stent to <60/ 40 and received Epinephrine 1 mg IV and a couple of chest compressions. He was then responsive and communicating with pit laborer. I presented to pit laborer for CODE BLUE were patient was awake and communicating, cyanotic, poorly perfused. Placed on NR and airway was suctioned multiple times with patient spitting up "phlegm" (which he states is chronic). IABP was placed by Dr. Sandoval. Sats improved to mid 90s and cyanosis resolved. LVEDP was 30. Patient was later seen again after he had been transferred to [facility]. He has been weaned to 4 L NC. He says his breathing is "fine". Denied chest pain. Review of Systems Cardiovascular: COMPLAINS OF: Chest pain Past Family Social History Allergies: Coded Allergies: Penicillin (Verified Allergy, Severe, EDEMA, HIVES, 05/19/15) Past Medical History Atrial fibrillation Coronary artery disease with prior stents Hyperlipidemia Hypertension Chronic systolic heart failure Asthma TIA Anxiety Tobacco abuse Past Surgical History Left eye cataract surgery ORIF with IM ross left femur Right wrist ORIF Back surgery 4 Bilateral femoropopliteal balloon angioplasty (2006) Coronary stents Tonsillectomy Cardiac catheterization 08/25/16 Reported Medications Warfarin 7.5 mg po daily Xanax 0.5 mill grams by mouth every 4 hours when necessary anxiety Albuterol 2 puffs inhaled every 4-6 hours as needed for shortness of breath Atorvastatin 40 mg by mouth daily at bedtime Lasix 40 mEq by mouth twice a day Potassium chloride 10 mEq by mouth twice a day Family History Neither of his parents had heart disease Mother in her late 70s or early 80s from cancer of unknown type Father committed suicide by carbon monoxide poisoning Social History He smokes cigarettes from age [age]. Drinks wine occasionally Denies use of illicit drugs Is a Physical Exam Vital Signs Vital Signs Date Time Temp Pulse Resp B/P Pulse Ox O2 Delivery O2 Flow Rate FiO2 09/04/16 22:18 97.6 92 20 157/62 97 09/04/16 18:49 84 18 124/71 97 Nasal Cannula 2 09/04/16 18:48 88 20 152/75 97 Nasal Cannula 2 09/04/16 18:42 94 18 122/73 97 Nasal Cannula 2 09/04/16 18:41 97 Nasal Cannula 2 09/04/16 18:41 97 Nasal Cannula 2 09/04/16 18:23 98 Nasal Cannula 2.00 09/04/16 18:20 107 18 97 Nasal Cannula 2 09/04/16 18:15 98.0 95 20 130/76 99 Physical Exam Drips: Heparin 1000 units/hr. Reexamined again after arrival to [facility] P 104 BP 159/53 MEAN 115 Augmented pressure 186 sats 96% on 4 L NC. GENERAL: Well-nourished, well-developed patient who is laying in [facility] bed, alert. SKIN: Warm and dry, well perfused. HEAD: Atraumatic. Normocephalic. EYES: Pupils equal and round, 2mm reactive. No scleral icterus. No injection or drainage. ENT: No nasal bleeding or discharge. Mucous membranes pink and moist. NECK: Trachea midline. CARDIOVASCULAR: Irregular. No murmurs rubs or gallops. RESPIRATORY: Coarse bibasilar rales. Breathing comfortably with no accessory muscle use. On 4 L nasal cannula with sats 96-97%. GASTROINTESTINAL: Abdomen soft, non-tender, nondistended. Bowel sounds hypoactive : Albright in place with light yellow urine output. MUSCULOSKELETAL: Extremities without clubbing, cyanosis, or edema. R femoral art line is in place right groin, intra-aortic balloon pump left groin both without significant hematoma. DP pulses palpable bilaterally. NEUROLOGICAL: Awake and alert. No obvious cranial nerve deficits. Moving extremities spontaneously without focal deficit. Normal speech. Laboratory Laboratory Tests Test 09/04/16 18:28 White Blood Count 7.4 Red Blood Count 4.65 Hemoglobin 14.8 Bedside Hemoglobin 14.6 Hematocrit 43.8 Bedside Hematocrit 43.0 Mean Corpuscular Volume 94.2 Mean Corpuscular Hemoglobin 31.9 Mean Corpuscular Hemoglobin 33.8 Concent Red Cell Distribution Width 14.3 Platelet Count 152 Mean Platelet Volume 8.8 Neutrophils (%) (Auto) 67.6 Lymphocytes (%) (Auto) 21.2 Monocytes (%) (Auto) 9.1 Eosinophils (%) (Auto) 1.4 Basophils (%) (Auto) 0.7 Neutrophils # (Auto) 5.0 Lymphocytes # (Auto) 1.6 Monocytes # (Auto) 0.7 Eosinophils # (Auto) 0.1 Basophils # (Auto) 0.1 CBC Comment DIFF FINAL Differential Comment Prothrombin Time 16.5 Prothromb Time International 1.5 Ratio Activated Partial 27.3 Thromboplast Time Bedside Sodium 142 Bedside Potassium 3.7 Bedside Chloride 105 Bedside Blood Urea Nitrogen 16 Bedside Creatinine 1.1 Bedside Glucose 164 Magnesium Level 2.2 Total Creatine Kinase 64 Troponin I 0.07 B-Type Natriuretic Peptide 365 Result Diagram: 09/04/16 1828 Assessment and Plan Problem List: (1) CAD (coronary artery disease) ICD Code: I25.10 Status: Chronic (2) Depression ICD Code: F32.9 Status: Chronic (3) ST elevation ID (STEMI) ICD Code: I21.3 Status: Acute (4) Afib ICD Code: I48.91 Status: Chronic (5) HTN (hypertension) ICD Code: I10 Status: Chronic (6) Hyperlipidemia ICD Code: E78.5 Status: Chronic (7) Systolic dysfunction with acute on chronic heart failure ICD Code: I50.23 Status: Acute (8) Cardiogenic shock ICD Code: R57.0 Status: Acute Assessment and Plan NEURO: Anxiety History of TIA Oxycodone as needed for pain. Morphine as needed for breakthrough pain. RESP: Respiratory insufficiency with hypoxia Pulmonary edema Asthma History of tobacco abuse Sats improved when perfusion improved. Weaned to NC. Pulmonary toilet, IS q1 hour awake. Lasix 40 mg IV x1. Nebs as needed CV: STEMI CAD s/p prior stent, now s/p bare metal stent LAD by Dr. Sandoval 09/04/16 Cardiogenic shock (resolved) Acute on Chronic systolic heart failure Atrial fibrillation, chronically anticoagulated with warfarin Briefly few seconds of PEA in pit laborer, received Epi 1m g x1 and couple of chest compressions. Now s/p bare metal stent to LAD by Dr. Sandoval IABP 1:1 Heparin drip 1000 units/hr while IABP in place. s/p Plavix 600 mg load. Plavix 75 mg by mouth daily ASA 81 daily Atorvastatin 40 mg by mouth daily at bedtime NTG started for SBP 157/62 and chest pain 2/10. NTG later weaned off and he has 0/10 chest pain and SBP 110-120s. EF 20% on cath Echo 01/23/15 - mild LVH, ejection fraction 35%, distal septal hypokinesis, mild , mild MR, dilated RV, mild TR, pulmonary artery peak systolic pressure 34 mmHg.. GI: Heart healthy 1800 ADA diet FEN/RENAL: Albright in place. Monitor intake and output. Monitor electrolytes. Replace electrolytes as indicated. ID: Monitor for signs and symptoms of infection including those from invasive lines. HEME: Monitor CBC. Hgb stable 14.8 -->13.9. ENDO: Euglycemic PROPH: Heparin drip will also provide DVT prophylaxis. Pepcid daily for stress ulcer prophylaxis. ACCESS: IABP left femoral 09/04/16, right femoral Art line 09/04/16 #1 CCT 60 minutes exclusive of separately billable procedures. Problem Qualifiers (1) ST elevation ID (STEMI): Qualified Code: I21.02 - ST elevation myocardial infarction involving left anterior descending (LAD) coronary artery Shawna Maxwell MD Sep 04, 2016 23:55
[2016-09-05] VITALS (14 sets, daily range): BP systolic 105–163; BP diastolic 42–103; PULSE 76–93; RESP 15–27; TEMP 97.6–98.6; O2SAT 92–99
[2016-09-05] MEDS ORDERED: HEPARIN SODIUM - IV 10,000 UNITS/10 ML VIAL IV PRN ×2 (00:30)
[2016-09-05] MEDS: CHLORHEXIDINE GLUCONATE 2 % 1 PACK (2 CLOTHS)(taper/protocol) TOPICAL SCH (04:00)
--- NOTE | 2016-09-05 05:20 | MH ---
cc: CHANDRA HALE DO DATE OF ADMISSION: 09/04/2016 REASON FOR ADMISSION STEMI. HISTORY OF PRESENT ILLNESS Shilo Horn is a pleasant 86-year-old male who presented to [facility] Emergency Room due to crushing chest pain. He states that the chest pain began around 3:00 p.m. while walking to his neighbor's house. The pain was pressure and crushing on the right side of his chest and substernal in nature. He was feeling short of breath with this and unable to hold still due to the pain. He presented to the emergency room and an EKG was done showing a left bundle branch block which is the same as his previous but with concern of concordant changes in the high lateral leads. When compared to a previous EKG of his, the high lateral leads had definitely changed. Because of this a STEMI Alert was called. On arrival the patient was in extreme pain and anxious with the pain being 10/10. PAST MEDICAL HISTORY 1. Coronary artery disease. 2. Ischemic cardiomyopathy with a previous ejection fraction of 20% by cardiac catheterization (August 25, 2016). 3. Atrial fibrillation on Coumadin therapy. 4. Arthritis. 5. Asthma. 6. Anxiety. 7. Hyperlipidemia. 8. TIA. 9. Hypertension. 10. History of myocardial infarction. PAST SURGICAL HISTORY 1. Cardiac catheterization (August 25, 2016) - Mild luminal irregularities, ejection fraction 20%. 2. The patient has a history of a stent previously believed to be in his RCA. 3. History of balloon angioplasty of bilateral femoral-popliteal arteries (2006). 4. Tonsillectomy 5. History wrist surgery. 6. Multiple nerve blocks for back pain. ALLERGIES PENICILLIN. MEDICATIONS 1. Coumadin 2.5/5 mg daily. 2. Xanax 0.5 mg every 4 hours as needed for anxiety. 3. Albuterol 2 puffs every 4-6 hours as needed for shortness of breath. 4. Lipitor 40 mg every night. 5. Lasix 40 mg b.i.d. 6. Potassium 10 mEq b.i.d. SOCIAL HISTORY The patient drinks wine seldomly. Denies tobacco or substance abuse. FAMILY HISTORY Denies premature coronary artery disease or sudden cardiac within the family. REVIEW OF SYSTEMS Unable to obtain secondary to the patient's current condition. PHYSICAL EXAMINATION VITAL SIGNS: Temperature 98.0, heart rate 84, blood pressure 124/71, respirations 18, pulse ox 97% on 2 liters. IN GENERAL: The patient is in severe distress with crushing chest pain. Extraocular muscles intact. Mucous membranes moist. NECK: Supple. No JVD at 45 degrees. No carotid bruits heard bilaterally. Carotid upstroke is relatively slow in uptake. HEART: Irregularly irregular. Positive first and second heart sounds with no noted murmurs, gallops or rubs. LUNGS: Decreased breath sounds bilaterally but no overt wheezes, rales or rhonchi. ABDOMEN: Soft, nontender and nondistended. No organomegaly noted. EXTREMITIES: No clubbing, cyanosis or edema. Femoral pulses intact bilaterally. NEUROLOGICALLY: No focal deficits. SKIN: Warm, diaphoretic. OSTEOPATHICALLY: No kyphoscoliosis, lordosis or paraspinal tender points. LABORATORY FINDINGS Hemoglobin 14.8, hematocrit 43.8, platelets 152. INR 1.5. Potassium 3.7, BUN 16, creatinine 1.1. Troponin 0.07. BNP 365. ELECTROCARDIOGRAM (September 04, 2016 at 18:16) Atrial fibrillation with occasional aberrant conduction versus PVC, left bundle branch block with concern for concordant changes in the high lateral leads. IMPRESSION 1. Acute ST elevation myocardial infarction with concordant ST changes in the high lateral leads of greater than 1 mm. 2. Crushing chest pain concerning for coronary insufficiency. 3. Coronary artery disease. 4. Cardiomyopathy with a known ejection fraction of 20% by cardiac catheterization (August 25, 2016). 5. Chronic atrial fibrillation on anticoagulation. 6. Hypertension. 7. Hyperlipidemia. RECOMMENDATIONS 1. Mr. Horn will taken emergently to the cardiac catheterization lab as it appears that he is having an acute ST-elevation myocardial infarction. 2. Postprocedure 2-D echo will be ordered to look at his overall left ventricular function, cardiac structure and possible valvopathies. 3. Further recommendations will be made after coronary visualization. Thank you for allowing me to see Shilo Horn. If there any questions, please do not hesitate to call. Chandra Hale DO VGP/JASON /10:10 PM /5:05 AM
[2016-09-05 05:36] LABS: AUTOMATED NEUTROPHIL # 7.4 TH/MM3 (1.8-7.7); BASOPHIL % 0.2 % (0.0-2.0); EOSINOPHIL % 0.1 % (0.0-4.0); HEMATOCRIT 41.3 % (39.0-51.0); HEMO FLAGS DIFF FINAL; LYMPHOCYTE # 0.8 TH/MM3 (1.0-4.8); MEAN CELL VOLUME 94.8 FL (80.0-100.0); MEAN CORPUSCULAR HEMOGLOBIN 31.9 PG (27.0-34.0); MEAN CORPUSCULAR HGB CONC 33.7 % (32.0-36.0); MONO % 9.3 % (0.0-8.0); NEUT % 81.4 % (16.0-70.0); PLATELET COUNT 138 TH/MM3 (150-450); RED BLOOD COUNT 4.35 MIL/MM3 (4.50-5.90); RED CELL DISTRIBUTION WIDTH 14.2 % (11.6-17.2); WHITE BLOOD COUNT 9.1 TH/MM3 (4.0-11.0)
[2016-09-05 05:44] LABS: APTT (PATIENT) 78.1 SEC (24.3-30.1)
[2016-09-05 05:54] LABS: BICARBONATE 23.2 MEQ/L (21.0-32.0); POTASSIUM 3.9 MEQ/L (3.5-5.1)
[2016-09-05 05:56] LABS: HDL CHOLESTEROL 47.3 MG/DL (40.0-60.0)
--- NOTE | 2016-09-05 06:42 | RADRPT ---
EXAM DATE/TIME: 09/05/2016 04:06 [place] COMPARISON: CHEST SINGLE AP, September 04, 2016, 18:18. INDICATIONS : Shortness of breath, possible pulmonary disease. MEDICAL HISTORY : A-Fib SURGICAL HISTORY : None. ENCOUNTER: Subsequent ACUITY: 2 days PAIN SCORE: 6/10 LOCATION: Bilateral chest FINDINGS: A single view of the chest demonstrates some increased density in the right lung with a diffuse infil trate. The heart is slightly enlarged and there is marked atherosclerotic disease. Persistent promine nce right paratracheal stripe. No visible pneumothorax. Osseous structures are intact. CONCLUSION: Some infiltrate in the right lung. The heart is slightly enlarged. Trev Marquis MD on September 05, 2016 at 6:39 Board Certified Radiologist. This report was verified electronically.
[2016-09-05] MEDS ORDERED: FUROSEMIDE 40 MG/4 ML VIAL IV PUSH ONE (06:45)
[2016-09-05] MEDS ORDERED: POTASSIUM CHLORIDE 20 MEQ CONTROLLED RELEASE TAB PO ONE (06:45)
[2016-09-05] MEDS: CLOPIDOGREL 75 MG TAB PO SCH (08:11)
[2016-09-05] MEDS: oxyCODONE/ACETAMINOPHEN 5 MG/325 MG TAB PO PRN ×3 (08:13→18:21)
[2016-09-05] MEDS: ASPIRIN 81 MG CHEW TAB PO SCH (08:13)
--- NOTE | 2016-09-05 08:14 | HHI.CCPN ---
Subjective Remarks/Hospital Course 86 yo WM with past history of coronary artery disease with prior DE and stents x2, chronic systolic heart failure with EF 20-35%, atrial fibrillation on chronic anticoagulation with warfarin, who presents to [facility] emergency department complaining of chest pain. He stated to the ED physician that his pain started around 14:45 on 09/04 and was described as "pressure/ crushing pain" in his substernal region and radiating to his right chest with associated SOB. EKG demonstrated LBBB with discordant elevation >5 mm in V2 and V3 and with concordant elevation in V4. . STEMI alert was called and he was taken emergently to cardiac [employer] by Dr. Senia Sandoval. He underwent LHC with bare metal stent to LAD. EF was 20%. He became hypotensive after stent to < 60/40 and received Epinephrine 1 mg IV and a couple of chest compressions. He was then responsive. I presented to microbiology lab manager where patient was placed on NR and airway was suctioned. IABP was placed by Dr. Sandoval. LVEDP was 30. Patient was later seen again after he had been transferred to [facility]. 09/05 Patient is lying in bed in no acute resp distress. On Heparin drip, IABP 1; 1. Objective Vital Signs Date Time Temp Pulse Resp B/P Pulse Ox O2 Delivery O2 Flow Rate FiO2 09/05/16 07:01 107/61 09/05/16 06:00 90 09/05/16 04:00 97.8 20 98 09/04/16 20:46 15.00 09/04/16 20:45 Nasal Cannula Result Diagram: 09/05/16 0430 09/05/16 0430 Other Results Laboratory Tests Test 09/04/16 09/04/16 09/05/16 18:28 22:00 04:30 White Blood Count 7.4 TH/MM3 9.1 TH/MM3 Red Blood Count 4.65 MIL/MM3 4.35 MIL/MM3 Hemoglobin 14.8 GM/DL 13.9 GM/DL Bedside Hemoglobin 14.6 G/DL Hematocrit 43.8 % 41.3 % Bedside Hematocrit 43.0 % Mean Corpuscular Volume 94.2 FL 94.8 FL Mean Corpuscular Hemoglobin 31.9 PG 31.9 PG Mean Corpuscular Hemoglobin 33.8 % 33.7 % Concent Red Cell Distribution Width 14.3 % 14.2 % Platelet Count 152 TH/MM3 138 TH/MM3 Mean Platelet Volume 8.8 FL 8.6 FL Neutrophils (%) (Auto) 67.6 % 81.4 % Lymphocytes (%) (Auto) 21.2 % 9.0 % Monocytes (%) (Auto) 9.1 % 9.3 % Eosinophils (%) (Auto) 1.4 % 0.1 % Basophils (%) (Auto) 0.7 % 0.2 % Neutrophils # (Auto) 5.0 TH/MM3 7.4 TH/MM3 Lymphocytes # (Auto) 1.6 TH/MM3 0.8 TH/MM3 Monocytes # (Auto) 0.7 TH/MM3 0.8 TH/MM3 Eosinophils # (Auto) 0.1 TH/MM3 0.0 TH/MM3 Basophils # (Auto) 0.1 TH/MM3 0.0 TH/MM3 CBC Comment DIFF FINAL DIFF FINAL Differential Comment Prothrombin Time 16.5 SEC Prothromb Time International 1.5 RATIO Ratio Activated Partial 27.3 SEC 78.1 SEC Thromboplast Time Bedside Sodium 142 MMOL/L Bedside Potassium 3.7 MMOL/L Bedside Chloride 105 MMOL/L Bedside Blood Urea Nitrogen 16 MG/DL Bedside Creatinine 1.1 MG/DL Bedside Glucose 164 MG/DL Magnesium Level 2.2 MG/DL Total Creatine Kinase 64 U/L Troponin I 0.07 NG/ML B-Type Natriuretic Peptide 365 PG/ML Nasal Screen MRSA (PCR) MRSA NOT DETECTED Sodium Level 141 MEQ/L Potassium Level 3.9 MEQ/L Chloride Level 109 MEQ/L Carbon Dioxide Level 23.2 MEQ/L Anion Gap 9 MEQ/L Blood Urea Nitrogen 13 MG/DL Creatinine 0.87 MG/DL Estimat Glomerular Filtration 83 ML/MIN Rate Random Glucose 138 MG/DL Calcium Level 7.8 MG/DL Triglycerides Level 72 MG/DL Cholesterol Level 129 MG/DL LDL Cholesterol 67 MG/DL HDL Cholesterol 47.3 MG/DL Cholesterol/HDL Ratio 2.72 RATIO Imaging Last Impressions Chest X-Ray 09/05/16 0600 Signed Impressions: Service Date/Time: Monday, September 05, 2016 04:06 - CONCLUSION: Some infiltrate in the right lung. The heart is slightly enlarged. Trev Marquis MD Objective Remarks GENERAL: Patient is lying in bed in no acute resp distress SKIN: Warm and dry. HEAD: Normocephalic. EYES: No scleral icterus. No injection or drainage. NECK: Supple, trachea midline. No JVD or lymphadenopathy. CARDIOVASCULAR: Regular rate and rhythm without murmurs, gallops, or rubs. RESPIRATORY: Breath sounds equal bilaterally. No accessory muscle use. GASTROINTESTINAL: Abdomen soft, non-tender, nondistended. MUSCULOSKELETAL: No cyanosis, or edema. Neuro: Awake and alert A/P Assessment and Plan 1) STEMI 2)Cardiomyopathy 3)CHF 4)HX CAD 5)Afib 6)Hyperlipidemia Plan Neuro: Awake and alert Pulm: Oxygen PRN keep sat >92% Bronchodilators CV: Monitor HR and BP keep MAP>65mmHg s/p cath with stent placement in LAD, EF 20-25% On ASA, Lipitor, Plavix and Heparin drip. Monitor CK's/trop. IABP 1:1, cards- Dr. Sandoval :Monitor renal function, I/O's, electrolytes replacement per protocol. GI: On PO diet Heme: Monitor CBC, PTT- on Hpearin drip per DE protocol. ID: Monitor for signs of infections ( Fever, WBC) panculture if spikes a fever. Check UA with cx if indicated, check sputum cx Endo: SSI for glycemic control DVT prophylaxis- on Heparin drip. No indications for GI prophylaxis Level 3 Anat Razo MD Sep 05, 2016 08:14
[2016-09-05] MEDS: INSULIN NovoLIN REGULAR SUPPLEMENTAL SCALE SQ SCH ×3 (08:30→18:00)
[2016-09-05] MEDS ORDERED: SODIUM PHOSPHATE INJ 30 MMOL in SODIUM CHLOR 0.9% 250 ML INJ 240 ML IV PRN (08:30)
[2016-09-05] MEDS ORDERED: GLUCAGON 1 MG/ML VIAL OTHER PRN (08:30)
[2016-09-05] MEDS ORDERED: POTASSIUM CHLORIDE 25 MEQ EFFERVESCENT TAB PO PRN (08:30)
[2016-09-05] MEDS ORDERED: MAGNESIUM SULFATE INJ 2 GM in SODIUM CHLORIDE 0.9% INJ 96 ML IV PRN (08:30)
[2016-09-05] MEDS ORDERED: POTASSIUM PHOSPHATE INJ 30 MMOL in SODIUM CHLOR 0.9% 250 ML INJ 250 ML IV PRN (08:30)
[2016-09-05] MEDS ORDERED: RESP: ALBUTEROL 2.5 MG/IPRATROPIUM 0.5 MG NEB (PRN) NEB (08:30)
[2016-09-05] MEDS ORDERED: POTASSIUM PHOSPHATE MONOBASIC 500 MG TAB PO/TUBE PRN (08:30)
[2016-09-05] MEDS ORDERED: POTASSIUM PHOSPHATE MONOBASIC 500 MG TAB PO PRN (08:30)
[2016-09-05] MEDS ORDERED: DEXTROSE 50% IN WATER 50 ML VIAL(D50) IV PRN (08:30)
[2016-09-05] MEDS ORDERED: POTASSIUM CHLOR 20 MEQ PREMIX 100 ML IV PRN ×2 (08:30)
[2016-09-05] MEDS ORDERED: MAGNESIUM OXIDE 400 MG TAB PO PRN (08:30)
[2016-09-05] MEDS ORDERED: POTASSIUM CHLOR 40 MEQ PREMIX 100 ML IV PRN ×2 (08:30)
[2016-09-05] MEDS ORDERED: MAGNESIUM SULFATE INJ 4 GM in SODIUM CHLORIDE 0.9% INJ 92 ML IV PRN (08:30)
[2016-09-05] MEDS: RESP: ALBUTEROL 2.5 MG/IPRATROPIUM 0.5 MG NEB (SCH) NEB ×3 (08:55→21:53)
[2016-09-05] MEDS: FUROSEMIDE 40 MG/4 ML VIAL IV PUSH SCH (09:15)
--- NOTE | 2016-09-05 09:19 | PD.CARD.PN ---
Subjective Subjective Remarks Events noted. awake and alert. No chest pain. Objective Vital Signs / I&O Vital Signs Date Time Temp Pulse Resp B/P Pulse Ox O2 Delivery O2 Flow Rate FiO2 09/05/16 07:01 107/61 09/05/16 06:00 90 09/05/16 06:00 116/63 09/05/16 05:00 109/59 09/05/16 04:36 111/58 09/05/16 04:00 87 09/05/16 04:00 97.8 84 20 133/52 98 09/05/16 03:42 103/59 09/05/16 02:00 84 09/05/16 02:00 101/57 09/05/16 01:25 95/59 09/05/16 00:41 113/60 09/05/16 00:00 97.6 92 20 163/103 97 09/05/16 00:00 117/62 09/05/16 00:00 88 09/04/16 23:58 89 09/04/16 23:00 133/82 09/04/16 22:18 97.6 92 20 157/62 97 09/04/16 22:15 114/63 09/04/16 20:46 100 15.00 09/04/16 20:45 88 Nasal Cannula 5.00 09/04/16 18:49 84 18 124/71 97 Nasal Cannula 2 09/04/16 18:48 88 20 152/75 97 Nasal Cannula 2 09/04/16 18:42 94 18 122/73 97 Nasal Cannula 2 09/04/16 18:41 97 Nasal Cannula 2 09/04/16 18:41 97 Nasal Cannula 2 09/04/16 18:23 98 Nasal Cannula 2.00 09/04/16 18:20 107 18 97 Nasal Cannula 2 09/04/16 18:15 98.0 95 20 130/76 99 I/O 09/04/16 09/04/16 09/04/16 09/05/16 09/05/16 09/05/16 07:00 15:00 23:00 07:00 15:00 23:00 Intake Total 53 ml Output Total 700 ml Balance -647 ml Intake IV Total 53 ml Output Urine Total 700 ml # Voids 2 # Bowel Movements 0 Physical Exam Lungs rales bilaterally. Irregular. Rate controlled Laboratory Laboratory Tests Test 09/04/16 09/04/16 09/05/16 18:28 22:00 04:30 White Blood Count 7.4 TH/MM3 9.1 TH/MM3 Red Blood Count 4.65 MIL/MM3 4.35 MIL/MM3 Hemoglobin 14.8 GM/DL 13.9 GM/DL Bedside Hemoglobin 14.6 G/DL Hematocrit 43.8 % 41.3 % Bedside Hematocrit 43.0 % Mean Corpuscular Volume 94.2 FL 94.8 FL Mean Corpuscular Hemoglobin 31.9 PG 31.9 PG Mean Corpuscular Hemoglobin 33.8 % 33.7 % Concent Red Cell Distribution Width 14.3 % 14.2 % Platelet Count 152 TH/MM3 138 TH/MM3 Mean Platelet Volume 8.8 FL 8.6 FL Neutrophils (%) (Auto) 67.6 % 81.4 % Lymphocytes (%) (Auto) 21.2 % 9.0 % Monocytes (%) (Auto) 9.1 % 9.3 % Eosinophils (%) (Auto) 1.4 % 0.1 % Basophils (%) (Auto) 0.7 % 0.2 % Neutrophils # (Auto) 5.0 TH/MM3 7.4 TH/MM3 Lymphocytes # (Auto) 1.6 TH/MM3 0.8 TH/MM3 Monocytes # (Auto) 0.7 TH/MM3 0.8 TH/MM3 Eosinophils # (Auto) 0.1 TH/MM3 0.0 TH/MM3 Basophils # (Auto) 0.1 TH/MM3 0.0 TH/MM3 CBC Comment DIFF FINAL DIFF FINAL Differential Comment Prothrombin Time 16.5 SEC Prothromb Time International 1.5 RATIO Ratio Activated Partial 27.3 SEC 78.1 SEC Thromboplast Time Bedside Sodium 142 MMOL/L Bedside Potassium 3.7 MMOL/L Bedside Chloride 105 MMOL/L Bedside Blood Urea Nitrogen 16 MG/DL Bedside Creatinine 1.1 MG/DL Bedside Glucose 164 MG/DL Magnesium Level 2.2 MG/DL Total Creatine Kinase 64 U/L Troponin I 0.07 NG/ML B-Type Natriuretic Peptide 365 PG/ML Nasal Screen MRSA (PCR) MRSA NOT DETECTED Sodium Level 141 MEQ/L Potassium Level 3.9 MEQ/L Chloride Level 109 MEQ/L Carbon Dioxide Level 23.2 MEQ/L Anion Gap 9 MEQ/L Blood Urea Nitrogen 13 MG/DL Creatinine 0.87 MG/DL Estimat Glomerular Filtration 83 ML/MIN Rate Random Glucose 138 MG/DL Calcium Level 7.8 MG/DL Phosphorus Level 3.2 MG/DL Triglycerides Level 72 MG/DL Cholesterol Level 129 MG/DL LDL Cholesterol 67 MG/DL HDL Cholesterol 47.3 MG/DL Cholesterol/HDL Ratio 2.72 RATIO Assessment and Plan Assessment and Plan Hemodynamically stable Mild CHF. Lasix given this AM and will order for daily based on underlying EF of 20-25%. Will check Troponin and CK today if Minimal rise in either can start to wean IABP Kostas Zaragoza MD Sep 05, 2016 09:19
[2016-09-05 13:35] LABS: BLOOD, URINE SMALL (NEG); GLUCOSE,URINE NEG (NEG); HYALINE CAST, URINE 1 /lpf (RARE); KETONE, URINE NEG (NEG); MUCUS URINE FEW /lpf (OCC); NITRITE,URINE NEG (NEG); URINE COLOR YELLOW (YELLW/STRAW)
[2016-09-05 13:36] LABS: COMMENT (UR) CATH-CULT NOT IND; CULTURE IF INDICATED CATH CULTURE NOT IND
--- NOTE | 2016-09-05 13:51 | EKG ---
Date Performed: 09/04/2016 Time Performed: 18:16:25 PTAGE: 86 years EKG: ATRIAL FIBRILLATION WITH ABERRANT CONDUCTION OR VENTRICULAR PREMATURE COMPLEXES ABNORMAL EC G Compared to PREVIOUS TRACING , the rate has increased and the ventricular ectopy is new. Left bundle branch block persists. Cannot rule out ischemia. Clinical correlation recommended. PREVIOUS TRACING 05/19/2015 22.58.08 DOCTOR: Nik Plasencia Interpretating Date/Time 09/05/2016 13:50:37
--- NOTE | 2016-09-05 13:52 | EKG ---
Date Performed: 09/05/2016 Time Performed: 09:55:32 PTAGE: 86 years EKG: ATRIAL FIBRILLATION LEFT BUNDLE BRANCH BLOCK PERSISTENT ST CHANGES, CANNOT RULE OUT ISCHEMI A CLINICAL CORRELATION RECOMMENDED PREVIOUS TRACING : 09/04/2016 18.16 DOCTOR: Nik Plasencia Interpretating Date/Time 09/05/2016 13:51:15
[2016-09-05 14:00] LABS: CREATINE KINASE 1260 U/L (39-308)
[2016-09-05 14:41] LABS: CKMB 183.8 NG/ML (0.5-3.6)
[2016-09-05 16:06] LABS: APTT (PATIENT) 40.1 SEC (24.3-30.1)
[2016-09-05] MEDS: HEPARIN-D5W INJ 250 ML IV SCH (19:15)
[2016-09-05] MEDS: ATORVASTATIN 40 MG TAB PO SCH (20:16)
[2016-09-05] MEDS: oxyCODONE/ACETAMINOPHEN 10 MG/325 MG TAB PO PRN (20:17)
[2016-09-05 20:46] LABS: CREATINE KINASE 857 U/L (39-308)
[2016-09-05 21:07] LABS: CKMB 98.1 NG/ML (0.5-3.6)
[2016-09-05 22:57] LABS: APTT (PATIENT) 35.5 SEC (24.3-30.1)
[2016-09-06] VITALS (27 sets, daily range): BP systolic 78–148; BP diastolic 41–108; PULSE 81–100; RESP 11–40; TEMP 97.7–98.7; O2SAT 93–100
[2016-09-06] MEDS: oxyCODONE/ACETAMINOPHEN 10 MG/325 MG TAB PO PRN ×3 (02:37→20:36)
[2016-09-06] MEDS: CHLORHEXIDINE GLUCONATE 2 % 1 PACK (2 CLOTHS)(taper/protocol) TOPICAL SCH (04:00)
[2016-09-06] MEDS: RESP: ALBUTEROL 2.5 MG/IPRATROPIUM 0.5 MG NEB (SCH) NEB ×4 (04:24→20:31)
[2016-09-06 04:53] LABS: APTT (PATIENT) 44.9 SEC (24.3-30.1)
[2016-09-06 05:05] LABS: ALT (GPT) 52 U/L (12-78); ANION GAP 8 MEQ/L (5-15); AST (GOT) 254 U/L (15-37); BICARBONATE 24.7 MEQ/L (21.0-32.0); BLOOD UREA NITROGEN 16 MG/DL (7-18); CHLORIDE 106 MEQ/L (98-107); GLOMERULAR FILTRATION RATE 72 ML/MIN (>89); POTASSIUM 3.9 MEQ/L (3.5-5.1); SODIUM (NA) 139 MEQ/L (136-145)
[2016-09-06 05:05] LABS: CREATINE KINASE 519 U/L (39-308)
[2016-09-06 05:08] LABS: ALKALINE PHOSPHATASE 91 U/L (45-117); TOTAL BILIRUBIN ADULT 0.7 MG/DL (0.2-1.0)
[2016-09-06 05:24] LABS: AUTOMATED NEUTROPHIL # 6.6 TH/MM3 (1.8-7.7); BASOPHIL % 0.5 % (0.0-2.0); EOSINOPHIL # 0.1 TH/MM3 (0-0.4); EOSINOPHIL % 1.2 % (0.0-4.0); HEMO FLAGS DIFF FINAL; MEAN CELL VOLUME 94.6 FL (80.0-100.0); MEAN CORPUSCULAR HEMOGLOBIN 32.2 PG (27.0-34.0); MONO % 10.2 % (0.0-8.0); NEUT % 76.1 % (16.0-70.0); PLATELET COUNT 113 TH/MM3 (150-450); RED BLOOD COUNT 3.92 MIL/MM3 (4.50-5.90); RED CELL DISTRIBUTION WIDTH 14.3 % (11.6-17.2); WHITE BLOOD COUNT 8.7 TH/MM3 (4.0-11.0)
[2016-09-06 05:26] LABS: CKMB 46.6 NG/ML (0.5-3.6)
[2016-09-06] MEDS: INSULIN NovoLIN REGULAR SUPPLEMENTAL SCALE SQ SCH ×4 (06:00→18:00)
--- NOTE | 2016-09-06 06:57 | HHI.CCPN ---
Subjective Remarks/Hospital Course 86 yo WM with past history of coronary artery disease with prior [place] and stents x2, chronic systolic heart failure with EF 20-35%, atrial fibrillation on chronic anticoagulation with warfarin, who presents to [facility] emergency department complaining of chest pain. He stated to the ED physician that his pain started around 14:45 on 09/04 and was described as "pressure/ crushing pain" in his substernal region and radiating to his right chest with associated SOB. EKG demonstrated LBBB with discordant elevation >5 mm in V2 and V3 and with concordant elevation in V4. . STEMI alert was called and he was taken emergently to cardiac Glass Fitter by Dr. Senia Sandoval. He underwent LHC with bare metal stent to LAD. EF was 20%. He became hypotensive after stent to < 60/40 and received Epinephrine 1 mg IV and a couple of chest compressions. He was then responsive. I presented to laborer demolition where patient was placed on NR and airway was suctioned. IABP was placed by Dr. Sandoval. LVEDP was 30. Patient was later seen again after he had been transferred to [facility]. 09/05 Patient is lying in bed in no acute resp distress. On Heparin drip, IABP 1; 1. 09/05 Patient denies any CP or SOB, IABP 1:1, on Heparin drip. Had 3 runs of non -sustained Vtach overnight- asymptomatic. Objective Vital Signs Date Time Temp Pulse Resp B/P Pulse Ox O2 Delivery O2 Flow Rate FiO2 09/06/16 06:00 111/58 09/06/16 06:00 83 09/06/16 04:00 98.3 25 97 09/05/16 21:53 Nasal Cannula 2.00 Intake and Output 09/05/16 09/05/16 09/06/16 08:00 16:00 00:00 Intake Total 53 ml 85 ml 62 ml Output Total 700 ml 1650 ml 250 ml Balance -647 ml -1565 ml -188 ml Result Diagram: 09/06/16 0430 09/06/16 0430 Other Results Laboratory Tests Test 09/05/16 09/05/16 09/05/16 09/05/16 09:28 12:45 15:32 19:09 Urine Color YELLOW Urine Turbidity CLEAR Urine pH 6.0 Urine Specific [place] 1.047 Urine Protein TRACE mg/dL Urine Glucose (UA) NEG mg/dL Urine Ketones NEG mg/dL Urine Occult Blood SMALL Urine Nitrite NEG Urine Bilirubin NEG Urine Urobilinogen LESS THAN 2.0 MG/DL Urine Leukocyte Esterase NEG Urine RBC LESS THAN 1 /hpf Urine WBC 1 /hpf Urine Hyaline Casts 1 /lpf Urine Mucus FEW /lpf Microscopic Urinalysis Comment CATH-CULT NOT IND Total Creatine Kinase 1260 U/L 857 U/L Creatine Kinase MB 183.8 NG/ML 98.1 NG/ML Creatine Kinase MB % 14.6 % 11.4 % Troponin I GREATER THAN GREATER THAN 40.00 NG/ML 40.00 NG/ML Activated Partial 40.1 SEC Thromboplast Time Test 09/05/16 09/06/16 09/06/16 21:43 04:05 04:30 Activated Partial 35.5 SEC 44.9 SEC Thromboplast Time Total Creatine Kinase 519 U/L Creatine Kinase MB 46.6 NG/ML Creatine Kinase MB % 9.0 % Troponin I GREATER THAN 40.00 NG/ML White Blood Count 8.7 TH/MM3 Red Blood Count 3.92 MIL/MM3 Hemoglobin 12.6 GM/DL Hematocrit 37.0 % Mean Corpuscular Volume 94.6 FL Mean Corpuscular Hemoglobin 32.2 PG Mean Corpuscular Hemoglobin 34.0 % Concent Red Cell Distribution Width 14.3 % Platelet Count 113 TH/MM3 Mean Platelet Volume 8.8 FL Neutrophils (%) (Auto) 76.1 % Lymphocytes (%) (Auto) 12.0 % Monocytes (%) (Auto) 10.2 % Eosinophils (%) (Auto) 1.2 % Basophils (%) (Auto) 0.5 % Neutrophils # (Auto) 6.6 TH/MM3 Lymphocytes # (Auto) 1.0 TH/MM3 Monocytes # (Auto) 0.9 TH/MM3 Eosinophils # (Auto) 0.1 TH/MM3 Basophils # (Auto) 0.0 TH/MM3 CBC Comment DIFF FINAL Differential Comment Sodium Level 139 MEQ/L Potassium Level 3.9 MEQ/L Chloride Level 106 MEQ/L Carbon Dioxide Level 24.7 MEQ/L Anion Gap 8 MEQ/L Blood Urea Nitrogen 16 MG/DL Creatinine 0.99 MG/DL Estimat Glomerular Filtration 72 ML/MIN Rate Random Glucose 135 MG/DL Calcium Level 7.7 MG/DL Phosphorus Level 3.2 MG/DL Magnesium Level 2.0 MG/DL Total Bilirubin 0.7 MG/DL Aspartate Amino Transf 254 U/L (AST/SGOT) Alanine Aminotransferase 52 U/L (ALT/SGPT) Alkaline Phosphatase 91 U/L Total Protein 5.5 GM/DL Albumin 3.0 GM/DL Imaging Last Impressions Chest X-Ray 09/05/16 0600 Signed Impressions: Service Date/Time: Monday, September 05, 2016 04:06 - CONCLUSION: Some infiltrate in the right lung. The heart is slightly enlarged. Trev Marquis MD Objective Remarks GENERAL: Patient is lying in bed n NAD SKIN: Warm and dry. HEAD: Normocephalic. EYES: No scleral icterus. No injection or drainage. NECK: Supple, trachea midline. No JVD or lymphadenopathy. CARDIOVASCULAR: Regular rate and rhythm without murmurs, gallops, or rubs. RESPIRATORY: Breath sounds equal bilaterally. No accessory muscle use. GASTROINTESTINAL: Abdomen soft, non-tender, nondistended. MUSCULOSKELETAL: No cyanosis, or edema. Neuro: Awake and alert. A/P Problem List: (1) CAD (coronary artery disease) ICD Code: I25.10 Status: Chronic (2) Depression ICD Code: F32.9 Status: Chronic (3) ST elevation [place] (STEMI) ICD Code: I21.3 Status: Acute (4) Afib ICD Code: I48.91 Status: Chronic (5) HTN (hypertension) ICD Code: I10 Status: Chronic (6) Hyperlipidemia ICD Code: E78.5 Status: Chronic (7) Systolic dysfunction with acute on chronic heart failure ICD Code: I50.23 Status: Acute (8) Cardiogenic shock ICD Code: R57.0 Status: Acute Assessment and Plan 1) STEMI 2)Cardiomyopathy 3)CHF 4)HX CAD 5)Afib 6)Hyperlipidemia Plan Neuro: Awake and alert Pulm: Oxygen PRN keep sat >92% Bronchodilators CV: Monitor HR and BP keep MAP>65mmHg s/p cath with stent placement in LAD, EF 20-25% On ASA, Lipitor, Plavix, Lasix 40mg daily, and Heparin drip. Monitor CK's/ trop.>40 IABP 1:1, cards- Dr. Zaragoza :Monitor renal function, I/O's, electrolytes replacement per protocol. GI: On PO diet Heme: Monitor CBC, PTT- on Heparin drip per [place] protocol. ID: Monitor for signs of infections ( Fever, WBC) panculture if spikes a fever. Endo: SSI for glycemic control DVT prophylaxis- on Heparin drip. No indications for GI prophylaxis Level 3 Problem Qualifiers (1) ST elevation [place] (STEMI): Qualified Code: I21.02 - ST elevation myocardial infarction involving left anterior descending (LAD) coronary artery Anat Razo MD Sep 06, 2016 06:57
[2016-09-06 07:07] LABS: CREATINE KINASE 477 U/L (39-308)
--- NOTE | 2016-09-06 08:42 | MA ---
cc: CHANDRA HALE DO DATE September 04, 2016 PROCEDURE Left heart catheterization, coronary angiogram, bare metal stent (2 x 12) to LAD, intraaortic balloon pump placement. Moderate sedation higher than 20 minutes PREPROCEDURE DIAGNOSES Acute STEMI. Chest pain. POSTPROCEDURE DIAGNOSES Occluded LAD status post bare metal stent (2 x 12). Hypotension requiring epinephrine. Known cardiomyopathy. Elevated left ventricular end-diastolic pressure. Complex case. MEDICATIONS 1. Morphine 2 mg. 2. Heparin 5400 units. 3. Adenosine 18 mcg intracoronary. 4. Epinephrine 1 ampule. 5. Plavix 600 mg. 6. Heparin drip at 1000 units for intraaortic balloon pump. 7. Nitro 400 mcg intracoronary. CONTRAST USED 300 cc. FLUOROSCOPY 29.5 minutes. MODERATE SEDATION 120 minutes. ESTIMATED BLOOD LOSS 50 cc. PROCEDURAL SUMMARY Shilo Horn is a pleasant 86-year-old male who presented to [facility] Emergency Room with crushing chest pain. He has a known left bundle branch block on EKG but he had significant concurrent coronary changes in the high laterals and a STEMI Alert was called. He was brought to the labor relations analyst emergently and risks, alternatives and benefits were explained and he verbally consented. He was prepped in the usual sterile fashion. The right femoral artery was accessed using a modified Seldinger technique and because of the heavy calcium, a 6-Rwandan sheath could not be originally inserted and so a 5-Rwandan dilator was inserted and placement of a J-wire. A 6-Rwandan sheath was then inserted. Angiogram of the right femoral artery shows heavy calcification with slow overall flow most likely due to his cardiomyopathy. A JR-4 was advanced over the J-wire to the ascending aorta and used for selective angiography of the right coronary system. This was exchanged for a JL-4 which was used for selective angiography of the left coronary system. Please see below for intervention. Postprocedure, the patient's right femoral artery and left femoral artery sheaths were sewn in place. An intraaortic balloon pump was at 1:1 with an ongoing pressure of 150. The patient left the labor relations analyst stable but guarded. FINDINGS Left main - A normal-sized vessel with adequate reflux and 20% disease. LAD - Overall the proximal portion is normal size with 20% disease. The midportion has 100% occlusion after the takeoff of the second major diagonal. Overall the diagonals have no significant disease. The midportion of the LAD is relatively small as the second diagonal is a larger vessel. Left circumflex is a normal-sized vessel with 30% ostial disease. There are mild luminal irregularities through the left circumflex and major obtuse marginal. RCA - Normal-sized vessel with diffuse 20% disease throughout the midportion. This, it is a dominant vessel in nature. LVEDP is 30. INTERVENTION Because of the occlusion in the mid-LAD, the JL-4 catheter was exchanged for an EBU-4 catheter. The patient received 5000 units of heparin in the emergency room and additional heparin was given for intervention. BMW wire was advanced and originally thought to be in the LAD but was found out to be in the septal manager steel. BMW was then pulled back and advanced into the mid-LAD. Because of the tortuosity and calcium as well as the small nature of the vessel, wiring of the vessel was difficult (this most likely led us missing our balloon due to overtime). A Compliant balloon (2 x 12) was then inflated over the lesion multiple times. Overall the vessel was extremely small and was felt to be 2-mm at best. Because of this, a bare metal stent (2.12) was placed in the mid-LAD avoiding the bifurcation with the diagonal which is a larger vessel. 200 mcg of nitro were then placed intracoronary as overall there is distal slow flow in the LAD. A Non-Compliant balloon (2 x 8) was then inflated over the stent for vessel apposition. 18 mcg of adenosine was given intracoronary. During the final shots after intervention air embolus were inadvertently introduced into the system. At that time the patient became extensively hypotensive with a blood pressure of 50/30. He started losing consciousness and a CODE BLUE was called. As we attempted to start CPR, he was waking up asking why we were pushing on his chest so the CPR was stopped. He was given 1 ampule of epinephrine. A CODE BLUE was called during the proceedings and the linesperson and respiratory arrived to help. The left femoral artery was accessed using a modified Seldinger technique and placement of a 6-Rwandan sheath emergently as patient's blood pressure was 50/30. Angiogram of the left femoral artery shows calcification, with essentially no flow due to current blood pressure. This was then exchanged out for an intraaortic balloon pump sheath and placement of an intraaortic balloon pump. The patient's blood pressure responded to epinephrine and he was then hypertensive and having chest pain. The patient was placed on a non-rebreather and oxygenations were watched by the intensive and at that time we did not feel that he needed to be intubated as he had adequate oxygenation. The left coronary artery was then reviewed and showed all vessels were open with mild slow flow down the LAD. Intracoronary nitroglycerin was given which did help with the distal flow in the LAD. As all vessels had flow, the BMW wire was removed. EBU catheter was exchanged for a JR-4 and because of his hypotension I felt one-shot of the RCA should be taken as he did have a previous stent there to make sure there was no complication due to hypotension. JR-4 was then advanced into the left ventricle for measurement of left ventricular end-diastolic pressure. The JR-4 was then removed over a J-wire. The patient was given 600 mg of Plavix. Intraaortic balloon pump was placed at 1:1 with an augmented pressure of 150. The patient left the labor relations analyst chest pain-free, in a guarded situations but hemodynamically stable. Due to the overall complexity of the case as well as difficulty with wiring the LAD, door to balloon time was most likely missed. IMPRESSION 1. Acute STEMI, STEMI status post bare metal stent (2 x 12) to the mid-LAD. 2. Inadvertent air embolism down the left coronary system causing hypotension requiring epinephrine. 3. Known cardiomyopathy with an ejection fraction of 20-25%. 4. Elevated LVEDP. 5. Placement of an intraaortic balloon pump due to cardiogenic shock and sluggish flow in the LAD as well as known cardiomyopathy with elevated LVEDP. RECOMMENDATIONS 1. Mr. Horn presented with an acute STEMI and placement of a bare metal stent (2 x 12) in the mid LAD. 2. During the procedure he had inadvertant air embolization in the left coronary system which caused hypotension requiring epinephrine and placement of an intraaortic balloon pump. 3. He will be watched in the ICU and ICU linesperson will be consulted for help with this management. 4. He will be placed on aspirin and Plavix and was loaded with 600 mg of Plavix in the procedure. 5. We will obtain an echo to look at his overall left ventricular function, cardiac structure and possible valvopathies. 6. KIMBERLEE inhibitor and beta-adam will be held until overall recovery. 7. He will be placed on a heparin drip at 1000 units due to his having the intraaortic balloon pump placed. 8. Dr. Zaragoza is his corset fitter and will take over care in the morning. Thank you for allowing me to see Shilo Kory. If there are any questions, please do not hesitate to call. Chandra Hale DO VGP/SSB /12:02 AM /8:19 AM MTDD
--- NOTE | 2016-09-06 09:09 | ECHRPT ---
Indication: STEMI, known CHF CONCLUSIONS Moderately dilated left ventricle. The left ventricular systolic function is severely reduced with an estimated ejection fraction in th e range of 25-30%. This study was not technically sufficient to allow for evaluation of left ventricular diastolic func tion. There is paradoxical septal motion. The left atrial size is helcflpl-wh-yzovnaoy dilated. Aortic valve sclerosis is present. Mild aortic valve regurgitation. Mild aortic valve stenosis. Structurally normal tricuspid valve. There is mild to moderate tricuspid valve regurgitation. There is estimated mild pulmonary hypertension present (range 40-50 mmHg). BP: 107 / 61 HR: 90 Rhythm: Atrial fibrillation MEASUREMENTS (Male / Female) Normal Values Technical Quality:Fair, Technically difficult stud y 2D ECHO LVOT Diameter 2.2 cm Aortic Root Diameter 3.2 cm LA Volume Index 113.2 cm/m 16 - 28 cm/m DOPPLER AV Peak Velocity 257.4 cm/s AV Peak Gradient 26.5 mmHg AV Mean Gradient 13.0 mmHg AV Velocity Time Integral 39.1 cm AI Peak Velocity 466.5 cm/s AI Peak Gradient 87.0 mmHg AI Pressure Half Time 239.8 ms LVOT Peak Velocity 64.2 cm/s LVOT Peak Gradient 1.6 mmHg LVOT Velocity Time Integral 9.3 cm LVOT Cardiac Index 2274.4 cm/minm AV Area Cont Eq vti 0.9 cm AV Area Cont Eq pk 0.9 cm Mitral E Point Velocity 93.3 cm/s TR Peak Velocity 301.0 cm/s TR Peak Gradient 36.0 mmHg FINDINGS LEFT VENTRICLE Moderately dilated left ventricle. The left ventricular systolic function is severely reduced with an estimated ejection fraction in th e range of 25-30%. Severe global hypokinesis with apical akinesis. RIGHT VENTRICLE Normal right ventricular size and systolic function. LEFT ATRIUM The left atrial size is jcnzlttc-xq-dtvekdxu dilated. RIGHT ATRIUM The right atrial size is mildly dilated. MITRAL VALVE Moderate mitral annular calcification. Mild leaflet sclerosis. Trace mitral valve regurgitation. AORTIC VALVE Aortic valve sclerosis is present. Mild aortic valve regurgitation. Mild aortic valve stenosis. TRICUSPID VALVE Structurally normal tricuspid valve. There is mild to moderate tricuspid valve regurgitation. There is estimated mild pulmonary hypertension present (range 40-50 mmHg). PULMONARY VALVE No pulmonary valve regurgitation or stenosis. VESSELS The inferior vena cava is normal in size. PERICARDIUM No pericardial effusion. Keaton Celaya MD (Electronically Signed) Final Date:06 September 2016 09:07
[2016-09-06] MEDS: ASPIRIN 81 MG CHEW TAB PO SCH (09:22)
[2016-09-06] MEDS: CLOPIDOGREL 75 MG TAB PO SCH (09:22)
[2016-09-06] MEDS: FUROSEMIDE 40 MG/4 ML VIAL IV PUSH SCH (09:23)
[2016-09-06 11:40] LABS: APTT (PATIENT) 40.6 SEC (24.3-30.1)
[2016-09-06] MEDS: MORPHINE SULFATE 8 MG/ML INJ IV PUSH PRN ×2 (12:19→16:46)
[2016-09-06] MEDS ORDERED: LIDOCAINE HCL 1% 50 ML VIAL ONE (13:33)
--- NOTE | 2016-09-06 13:41 | PD.CARD.PN ---
Subjective Subjective Remarks feels well. No angina or dyspnea Objective Vital Signs / I&O Vital Signs Date Time Temp Pulse Resp B/P Pulse Ox O2 Delivery O2 Flow Rate FiO2 09/06/16 13:00 104/46 09/06/16 12:45 105/62 09/06/16 12:00 123/77 09/06/16 12:00 100 09/06/16 12:00 97.7 100 23 125/98 99 130/60 09/06/16 11:01 96 18 132/82 96 119/56 09/06/16 11:00 99/56 09/06/16 10:48 99/65 09/06/16 10:22 18 09/06/16 10:00 92 17 148/99 99 142/61 09/06/16 10:00 136/62 09/06/16 10:00 92 09/06/16 09:17 98 Nasal Cannula 2.00 09/06/16 09:00 102/55 09/06/16 09:00 96 18 136/100 93 136/57 09/06/16 08:00 97.8 86 27 146/108 97 133/54 09/06/16 08:00 106/57 09/06/16 08:00 86 09/06/16 07:00 114/77 09/06/16 07:00 85 23 141/96 97 131/54 09/06/16 06:00 111/58 09/06/16 06:00 83 40 138/55 100 09/06/16 06:00 83 09/06/16 05:00 93/47 09/06/16 05:00 84 29 124/86 97 118/50 09/06/16 04:00 86 09/06/16 04:00 98.3 86 25 127/76 97 119/48 09/06/16 04:00 89/47 09/06/16 03:00 88 09/06/16 03:00 92/53 09/06/16 02:00 87 20 132/87 97 126/49 09/06/16 02:00 99/52 09/06/16 02:00 87 09/06/16 01:00 84 09/06/16 01:00 100/51 09/06/16 00:00 104/50 09/06/16 00:00 98.7 88 16 121/92 95 117/48 09/06/16 00:00 88 09/05/16 23:00 109/54 09/05/16 22:00 78 15 112/42 99 09/05/16 22:00 90/48 09/05/16 22:00 78 09/05/16 21:53 96 Nasal Cannula 2.00 09/05/16 21:01 80 09/05/16 21:00 93/50 09/05/16 20:00 98.6 91 26 148/90 96 135/61 09/05/16 20:00 91 09/05/16 20:00 111/63 09/05/16 19:00 94/54 09/05/16 18:00 85/48 09/05/16 18:00 85 09/05/16 17:00 86/49 09/05/16 16:00 89/44 09/05/16 16:00 97.6 82 23 112/70 96 105/42 09/05/16 16:00 82 09/05/16 15:00 98/54 09/05/16 14:42 22 09/05/16 14:00 76 09/05/16 14:00 94/48 I/O 09/05/16 09/05/16 09/05/16 09/06/16 09/06/16 09/06/16 07:00 15:00 23:00 07:00 15:00 23:00 Intake Total 53 ml 85 ml 62 ml 301 ml 236 ml Output Total 700 ml 1650 ml 250 ml 200 ml 1100 ml Balance -647 ml -1565 ml -188 ml 101 ml -864 ml Intake Oral 240 ml 236 ml IV Total 53 ml 85 ml 62 ml 61 ml Output Urine Total 700 ml 700 ml 250 ml 200 ml 1100 ml Stool Total 950 ml # Voids 2 3 4 # Bowel Movements 0 0 0 0 Physical Exam Lungs rales bilaterally. Irregular. Rate controlled Laboratory Laboratory Tests Test 09/05/16 09/05/16 09/05/16 09/06/16 15:32 19:09 21:43 04:05 Activated Partial 40.1 SEC 35.5 SEC Thromboplast Time Total Creatine Kinase 857 U/L 519 U/L Creatine Kinase MB 98.1 NG/ML 46.6 NG/ML Creatine Kinase MB % 11.4 % 9.0 % Troponin I GREATER THAN GREATER THAN 40.00 NG/ML 40.00 NG/ML Test 09/06/16 09/06/16 09/06/16 04:30 06:21 10:30 White Blood Count 8.7 TH/MM3 Red Blood Count 3.92 MIL/MM3 Hemoglobin 12.6 GM/DL Hematocrit 37.0 % Mean Corpuscular Volume 94.6 FL Mean Corpuscular Hemoglobin 32.2 PG Mean Corpuscular Hemoglobin 34.0 % Concent Red Cell Distribution Width 14.3 % Platelet Count 113 TH/MM3 Mean Platelet Volume 8.8 FL Neutrophils (%) (Auto) 76.1 % Lymphocytes (%) (Auto) 12.0 % Monocytes (%) (Auto) 10.2 % Eosinophils (%) (Auto) 1.2 % Basophils (%) (Auto) 0.5 % Neutrophils # (Auto) 6.6 TH/MM3 Lymphocytes # (Auto) 1.0 TH/MM3 Monocytes # (Auto) 0.9 TH/MM3 Eosinophils # (Auto) 0.1 TH/MM3 Basophils # (Auto) 0.0 TH/MM3 CBC Comment DIFF FINAL Differential Comment Activated Partial 44.9 SEC 40.6 SEC Thromboplast Time Sodium Level 139 MEQ/L Potassium Level 3.9 MEQ/L Chloride Level 106 MEQ/L Carbon Dioxide Level 24.7 MEQ/L Anion Gap 8 MEQ/L Blood Urea Nitrogen 16 MG/DL Creatinine 0.99 MG/DL Estimat Glomerular Filtration 72 ML/MIN Rate Random Glucose 135 MG/DL Calcium Level 7.7 MG/DL Phosphorus Level 3.2 MG/DL Magnesium Level 2.0 MG/DL Total Bilirubin 0.7 MG/DL Aspartate Amino Transf 254 U/L (AST/SGOT) Alanine Aminotransferase 52 U/L (ALT/SGPT) Alkaline Phosphatase 91 U/L Total Protein 5.5 GM/DL Albumin 3.0 GM/DL Total Creatine Kinase 477 U/L Creatine Kinase MB 44.0 NG/ML Creatine Kinase MB % 9.2 % Troponin I GREATER THAN 40.00 NG/ML Assessment and Plan Assessment and Plan Hemodynamically stable Good diuresis. BP 140/ 80. Will add small dose of metoprolol. D/C heparin and pull IABP today. Kostas Zaragoza MD Sep 06, 2016 13:40
[2016-09-06] MEDS: METOPROLOL TARTRATE 25 MG TAB PO SCH ×2 (14:14→20:26)
[2016-09-06] MEDS: ATORVASTATIN 40 MG TAB PO SCH (20:26)
--- NOTE | 2016-09-06 22:31 | RADRPT ---
EXAM DATE/TIME: 09/06/2016 21:43 [facility] COMPARISON: No previous studies available for comparison. INDICATIONS : Bilateral leg swelling. MEDICAL HISTORY : Myocardial infarction. Congestive heart failure. Hypercholesterolemia. CVA. CAD. A-fib. Hypertension. COPD. GERD. Measles. SURGICAL HISTORY : Coronary artery stent. Cardiac catheterization. ENCOUNTER: Initial ACUITY: 1 day PAIN SCORE: 5/10 LOCATION: Bilateral legs. TECHNIQUE: Venous ultrasound of the left and right leg was performed from the inguinal ligament to the proximal calf. Real-time, color Doppler and spectral tracing, compression and augmentation techniques were us ed. FINDINGS: RIGHT LEG: There is normal compressibility of the deep venous system from the inguinal region to the proximal ca lf. No echogenic clot is seen in the lumen of the common femoral, femoral, popliteal, and posterior tibial veins. There is a normal response of the venous system to proximal and distal augmentation an d respiration. LEFT LEG: There is normal compressibility of the deep venous system from the inguinal region to the proximal ca lf. No echogenic clot is seen in the lumen of the common femoral, femoral, popliteal, and posterior tibial veins. There is a normal response of the venous system to proximal and distal augmentation an d respiration. CONCLUSION: No DVT. Alistair Chaparro Jr., MD on September 06, 2016 at 22:29 Board Certified Radiologist. This report was verified electronically.
[2016-09-07] VITALS (15 sets, daily range): BP systolic 92–134; BP diastolic 54–96; PULSE 75–92; RESP 13–38; TEMP 97–99; O2SAT 88–99
[2016-09-07] MEDS: RESP: ALBUTEROL 2.5 MG/IPRATROPIUM 0.5 MG NEB (SCH) NEB ×4 (03:29→19:47)
[2016-09-07] MEDS: CHLORHEXIDINE GLUCONATE 2 % 1 PACK (2 CLOTHS)(taper/protocol) TOPICAL SCH (03:52)
[2016-09-07 04:30] LABS: AUTOMATED NEUTROPHIL # 7.5 TH/MM3 (1.8-7.7); BASOPHIL % 0.4 % (0.0-2.0); EOSINOPHIL % 0.2 % (0.0-4.0); HEMATOCRIT 38.3 % (39.0-51.0); HEMO FLAGS DIFF FINAL; LYMPH % 10.8 % (9.0-44.0); MEAN CELL VOLUME 95.1 FL (80.0-100.0); MEAN CORPUSCULAR HEMOGLOBIN 31.4 PG (27.0-34.0); MONO % 10.7 % (0.0-8.0); NEUT % 77.9 % (16.0-70.0); PLATELET COUNT 116 TH/MM3 (150-450); RED BLOOD COUNT 4.02 MIL/MM3 (4.50-5.90); RED CELL DISTRIBUTION WIDTH 14.4 % (11.6-17.2); WHITE BLOOD COUNT 9.6 TH/MM3 (4.0-11.0)
[2016-09-07 04:57] LABS: BICARBONATE 26.3 MEQ/L (21.0-32.0); MAGNESIUM 2.2 MG/DL (1.5-2.5); POTASSIUM 4.1 MEQ/L (3.5-5.1)
[2016-09-07] MEDS: oxyCODONE/ACETAMINOPHEN 5 MG/325 MG TAB PO PRN (05:12)
--- NOTE | 2016-09-07 05:36 | RADRPT ---
EXAM DATE/TIME: 09/07/2016 04:37 [facility] COMPARISON: CHEST SINGLE AP, September 05, 2016, 4:06. INDICATIONS : Shortness of breath. MEDICAL HISTORY : A-Fib. SURGICAL HISTORY : None. ENCOUNTER: Subsequent ACUITY: 4 - 6 days PAIN SCORE: 0/10 LOCATION: Bilateral chest FINDINGS: Trace atelectasis seen in the bases. The infiltrate previously seen in the right mid lung has largely resolved. No large effusion. No pneumothorax. Mild cardiomegaly is stable. Tortuous and atherosclerotic aorta again noted. CONCLUSION: Improved. Trace bibasilar atelectasis currently seen. Elias Cordero MD on September 07, 2016 at 5:34 Board Certified Radiologist. This report was verified electronically.
[2016-09-07] MEDS: INSULIN NovoLIN REGULAR SUPPLEMENTAL SCALE SQ SCH ×5 (06:00→21:00)
--- NOTE | 2016-09-07 07:57 | PD.CARD.PN ---
Subjective Subjective Remarks No complaints except constipation. Objective Vital Signs / I&O Vital Signs Date Time Temp Pulse Resp B/P Pulse Ox O2 Delivery O2 Flow Rate FiO2 09/07/16 06:00 75 09/07/16 04:00 76 09/07/16 04:00 97.4 76 20 116/72 97 09/07/16 02:00 78 09/07/16 02:00 78 17 115/60 95 09/07/16 01:00 81 09/07/16 01:00 81 22 107/55 92 09/07/16 00:00 97.0 76 13 116/59 99 09/07/16 00:00 76 09/06/16 23:01 83 09/06/16 23:01 83 16 78/41 95 Arterial Line 09/06/16 22:02 85 17 106/58 97 Arterial Line 09/06/16 22:00 85 09/06/16 21:00 82 09/06/16 21:00 82 19 108/56 98 Arterial Line 09/06/16 20:33 97 Nasal Cannula 2.00 09/06/16 20:00 98.0 89 31 119/68 94 Arterial Line 09/06/16 20:00 89 09/06/16 18:00 81 11 115/58 98 09/06/16 18:00 81 09/06/16 17:00 81 21 119/66 09/06/16 16:00 95 09/06/16 16:00 82/43 09/06/16 16:00 98.0 95 29 110/82 98 136/64 09/06/16 15:02 99/63 09/06/16 15:00 95 18 109/65 98 117/53 09/06/16 14:09 97 27 107/56 96 120/53 09/06/16 14:00 98 09/06/16 14:00 95/53 09/06/16 13:00 93 26 132/69 96 126/56 09/06/16 13:00 104/46 09/06/16 12:45 105/62 09/06/16 12:00 123/77 09/06/16 12:00 100 09/06/16 12:00 97.7 100 23 125/98 99 130/60 09/06/16 11:01 96 18 132/82 96 119/56 7/11/17 11:00 99/56 09/06/16 10:48 99/65 09/06/16 10:22 18 09/06/16 10:00 92 17 148/99 99 142/61 09/06/16 10:00 136/62 09/06/16 10:00 92 09/06/16 09:17 98 Nasal Cannula 2.00 09/06/16 09:00 102/55 09/06/16 09:00 96 18 136/100 93 136/57 09/06/16 08:00 97.8 86 27 146/108 97 133/54 09/06/16 08:00 106/57 09/06/16 08:00 86 I/O 09/06/16 09/06/16 09/06/16 09/07/16 09/07/16 09/07/16 07:00 15:00 23:00 07:00 15:00 23:00 Intake Total 301 ml 313 ml 0 ml 240 ml Output Total 200 ml 1100 ml 300 ml 300 ml Balance 101 ml -787 ml -300 ml -60 ml Intake Oral 240 ml 236 ml 240 ml IV Total 61 ml 77 ml 0 ml 0 ml Output Urine Total 200 ml 1100 ml 300 ml 300 ml # Voids 4 1 # Bowel Movements 0 0 0 Physical Exam Lungs rales bilaterally. Irregular. Rate controlled Laboratory Laboratory Tests Test 09/06/16 09/07/16 10:30 03:22 Activated Partial 40.6 SEC Thromboplast Time White Blood Count 9.6 TH/MM3 Red Blood Count 4.02 MIL/MM3 Hemoglobin 12.6 GM/DL Hematocrit 38.3 % Mean Corpuscular Volume 95.1 FL Mean Corpuscular Hemoglobin 31.4 PG Mean Corpuscular Hemoglobin 33.0 % Concent Red Cell Distribution Width 14.4 % Platelet Count 116 TH/MM3 Mean Platelet Volume 9.2 FL Neutrophils (%) (Auto) 77.9 % Lymphocytes (%) (Auto) 10.8 % Monocytes (%) (Auto) 10.7 % Eosinophils (%) (Auto) 0.2 % Basophils (%) (Auto) 0.4 % Neutrophils # (Auto) 7.5 TH/MM3 Lymphocytes # (Auto) 1.0 TH/MM3 Monocytes # (Auto) 1.0 TH/MM3 Eosinophils # (Auto) 0.0 TH/MM3 Basophils # (Auto) 0.0 TH/MM3 CBC Comment DIFF FINAL Differential Comment Sodium Level 138 MEQ/L Potassium Level 4.1 MEQ/L Chloride Level 101 MEQ/L Carbon Dioxide Level 26.3 MEQ/L Anion Gap 11 MEQ/L Blood Urea Nitrogen 21 MG/DL Creatinine 0.95 MG/DL Estimat Glomerular Filtration 75 ML/MIN Rate Random Glucose 148 MG/DL Calcium Level 8.1 MG/DL Phosphorus Level 3.5 MG/DL Magnesium Level 2.2 MG/DL Assessment and Plan Assessment and Plan Hemodynamically stable Chest X-ray shows resolution of CHF. Will add small dose of ACEI. Switch lasix to 40 mg p.o. daily. OK to go to [facility]. Home 1-2 days Kostas Zraagoza MD Sep 07, 2016 07:57
[2016-09-07] MEDS: METOPROLOL TARTRATE 25 MG TAB PO SCH ×2 (08:44→21:49)
[2016-09-07] MEDS: ASPIRIN 81 MG CHEW TAB PO SCH (08:45)
[2016-09-07] MEDS: FUROSEMIDE 40 MG/4 ML VIAL IV PUSH SCH (08:45)
[2016-09-07] MEDS: CLOPIDOGREL 75 MG TAB PO SCH (08:45)
[2016-09-07] MEDS ORDERED: RESP: ALBUTEROL 2.5 MG/3 ML NEB (PRN) NEB (13:15)
--- NOTE | 2016-09-07 13:33 | HHI.CCPN ---
Subjective Remarks/Hospital Course 86 yo WM with past history of coronary artery disease with prior AZ and stents x2, chronic systolic heart failure with EF 20-35%, atrial fibrillation on chronic anticoagulation with warfarin, who presents to [facility] emergency department complaining of chest pain. He stated to the ED physician that his pain started around 14:45 on 09/04 and was described as "pressure/ crushing pain" in his substernal region and radiating to his right chest with associated SOB. EKG demonstrated LBBB with discordant elevation >5 mm in V2 and V3 and with concordant elevation in V4. . STEMI alert was called and he was taken emergently to cardiac [facility] by Dr. Senia Sandoval. He underwent LHC with bare metal stent to LAD. EF was 20%. He became hypotensive after stent to < 60/40 and received Epinephrine 1 mg IV and a couple of chest compressions. He was then responsive. I presented to [facility] where patient was placed on NR and airway was suctioned. IABP was placed by Dr. Sandoval. LVEDP was 30. Patient was later seen again after he had been transferred to [facility]. 09/05 Patient is lying in bed in no acute resp distress. On Heparin drip, IABP 1; 1. 09/05 Patient denies any CP or SOB, IABP 1:1, on Heparin drip. Had 3 runs of non -sustained Vtach overnight- asymptomatic. Subjective 09/07: Afebrile. Heparin drip is off. Balloon pump has been discontinued as of 1600 yesterday. Currently on 2 L nasal cannula. Denies chest pain or shortness of breath currently. Objective Vital Signs Date Time Temp Pulse Resp B/P Pulse Ox O2 Delivery O2 Flow Rate FiO2 09/07/16 12:00 97.8 80 38 125/96 98 09/07/16 07:17 Nasal Cannula 2.00 Intake and Output 09/06/16 09/06/16 09/07/16 08:00 16:00 00:00 Intake Total 301 ml 313 ml 0 ml Output Total 200 ml 1100 ml 300 ml Balance 101 ml -787 ml -300 ml Result Diagram: 09/07/16 0322 09/07/16 0322 Imaging Last 72 hours Impressions Chest X-Ray 09/07/16 0000 Signed Impressions: Service Date/Time: Wednesday, September 07, 2016 04:37 - CONCLUSION: Improved. Trace bibasilar atelectasis currently seen. Elias Cordero MD Lower Extremity Ultrasound 09/06/16 0000 Signed Impressions: Service Date/Time: Tuesday, September 06, 2016 21:43 - CONCLUSION: No DVT. Alistair Chaparro Jr., MD Chest X-Ray 09/05/16 0600 Signed Impressions: Service Date/Time: Monday, September 05, 2016 04:06 - CONCLUSION: Some infiltrate in the right lung. The heart is slightly enlarged. Trev Marquis MD Chest X-Ray 09/04/16 1821 Signed Impressions: Service Date/Time: Sunday, September 04, 2016 18:18 - CONCLUSION: Mild cardiomegaly with no evidence of pulmonary edema. Olaf Butterfield MD Objective Remarks GENERAL: 86-year-old male, resting in bed in no acute distress SKIN: Warm and dry. Well perfused HEAD: Atraumatic. Normocephalic. EYES: Pupils equal and round about 3 mm bilaterally and reactive. No scleral icterus. No injection or drainage. ENT: No nasal bleeding or discharge. Mucous membranes pink and moist. NECK: Trachea midline. No JVD. CARDIOVASCULAR: Irregular, IR. S1, S2 no S4. One out of 6 murmur systolic over the left sternal border RESPIRATORY: Clear to auscultation. Breath sounds equal bilaterally. GASTROINTESTINAL: Abdomen soft, non-tender, nondistended. Hypoactive bowel sounds are present MUSCULOSKELETAL: Extremities with trace lower extremity edema. No obvious deformities. NEUROLOGICAL: Awake and alert. No obvious cranial nerve deficits. Motor grossly within normal limits. Five out of 5 muscle strength in the arms and legs. Normal speech. PSYCHIATRIC: Appropriate mood and affect; insight and judgment normal. A/P Problem List: (1) CAD (coronary artery disease) ICD Code: I25.10 Status: Chronic (2) Depression ICD Code: F32.9 Status: Chronic (3) ST elevation [place] (STEMI) ICD Code: I21.3 Status: Acute (4) Afib ICD Code: I48.91 Status: Chronic (5) HTN (hypertension) ICD Code: I10 Status: Chronic (6) Hyperlipidemia ICD Code: E78.5 Status: Chronic (7) Systolic dysfunction with acute on chronic heart failure ICD Code: I50.23 Status: Acute (8) Cardiogenic shock ICD Code: R57.0 Status: Acute Assessment and Plan NEURO/PSYCH: Anxiety Chronic benzodiazepine use History of TIA - negative CT head 2016 Lumbar radiculopathy Chronic benzodiazepine use Currently on Percocets as needed for pain management. Morphine as needed for breakthrough pain. Resume Xanax to 0.5 mg every 4 hours when necessary anxiety RESP: Acute Respiratory insufficiency with hypoxia Pulmonary edema resolving Asthma History of tobacco abuse Nasal cannula to maintain saturations greater than equal to 92% IS q1 hour awake. Diuresed. We'll transition to Lasix 40 mg by mouth twice a day/home dosage As needed bronchodilator therapy Chest x-ray 09/07 revealed much improved pulmonary edema. CV: STEMI CAD s/p prior BMS to RCA 2007 stent, now s/p bare metal stent LAD by Dr. Sandoval 09/04/16 Cardiogenic shock (resolved) Acute on Chronic systolic heart failure ejection fraction 25-30% Atrial fibrillation, chronically anticoagulated with VKA Dyslipidemia Peripheral vascular disease status post bilateral femoropopliteal angioplasty Cardiac catheterization with EF 20-25%. Left main 20%. LAD proximal 20%. 100 % at takeoff To second diagonal status post bare-metal stent by . Left circumflex 30% ostial, RCA 20%. LVEDP 30 Briefly few seconds of PEA in lab[facility] cutting [facility], received Epi 1m g x1 with chest compressions Now s/p bare metal stent to LAD by Dr. Sandoval s/p Plavix 600 mg load. DAP with Plavix 75 mg by mouth daily along with aspirin 81 mg daily Lipitor 40 mg by mouth daily at bedtime. Cholesterol 129. Triglycerides 72. HDL 47. Echocardiogram 09/11 revealed EF 25-30%. Global hypokinesis with apical akinesis. Left atrium mildly dilated right atrium. AV sclerosis. Mild AR/MS. Moderate TR. Mild pulmonary hypertension. Lasix transition home dose 40 mg by mouth twice a day. Added lisinopril 2.5 mill grams by mouth daily per cardiology's recommendation Continue metoprolol 25 mg by mouth twice a day GI: History of Gonzalez's esophagus History of ischemic colitis Heart healthy 1800 ADA diet Protonix for GI prophylaxis Ludmila-Colace for bowel regimen FEN/RENAL/: BPH Albright catheter is been removed Monitor intake and output. Replace electrodes is clinically indicated ID: Monitor for signs and symptoms of infection HEME: Normocytic anemia Thrombocytopenia Chronic Coumadin use Hemoglobin slowly trending downward. Monitor CBC daily. Follow trends. Coumadin currently on hold. Resume when okay with cardiology ENDO: Euglycemic not requiring sliding-scale insulin PROPH: GI - Protonix - DVT - SCD/pharmacological prophylaxis when okay with cardiology Level II. Okay to transfer to [facility]. Problem Qualifiers (1) ST elevation [place] (STEMI): Qualified Code: I21.02 - ST elevation myocardial infarction involving left anterior descending (LAD) coronary artery Amando Tao MD Sep 07, 2016 13:33
[2016-09-07] MEDS ORDERED: PILL SPLITTER OTHER PRN (14:30)
[2016-09-07] MEDS: MORPHINE SULFATE 8 MG/ML INJ IV PUSH PRN (15:35)
[2016-09-07] MEDS ORDERED: NITROGLYCERIN 0.4 MG SL 25 TABS/BTL SL PRN (16:15)
[2016-09-07] MEDS: FUROSEMIDE 40 MG TAB PO SCH (18:04)
--- NOTE | 2016-09-07 19:42 | EKG ---
Date Performed: 09/07/2016 Time Performed: 15:30:26 PTAGE: 86 years EKG: Atrial fibrillation with frequent multifocal PVCs or aberrant ventricular conduction Lead(s ) unsuitable for analysis: V6 Left bundle branch block Abnormal ECG PREVIOUS TRACING : 09/05/2016 09.55 Compared to previous tracing, possible acute anterolateral infarction pattern is no longer evident though artefact on the present EKG precludes adequate compari son. DOCTOR: Gurmeet Cox Interpretating Date/Time 09/07/2016 19:40:40
[2016-09-07] MEDS: ALPRAZolam 0.5 MG TAB PO PRN (21:49)
[2016-09-07] MEDS: POTASSIUM CHLORIDE 10 MEQ CAP PO SCH (21:49)
[2016-09-07] MEDS: ATORVASTATIN 40 MG TAB PO SCH (21:49)
[2016-09-07] MEDS: oxyCODONE/ACETAMINOPHEN 10 MG/325 MG TAB PO PRN (21:50)
[2016-09-08] VITALS (12 sets, daily range): BP systolic 101–144; BP diastolic 59–92; PULSE 78–91; RESP 21–43; TEMP 96.3–98.4; O2SAT 89–100
[2016-09-08] MEDS: oxyCODONE/ACETAMINOPHEN 10 MG/325 MG TAB PO PRN (01:43)
[2016-09-08] MEDS: MORPHINE SULFATE 8 MG/ML INJ IV PUSH PRN ×6 (02:20→21:33)
[2016-09-08] MEDS: CHLORHEXIDINE GLUCONATE 2 % 1 PACK (2 CLOTHS)(taper/protocol) TOPICAL SCH (04:00)
[2016-09-08] MEDS: RESP: ALBUTEROL 2.5 MG/IPRATROPIUM 0.5 MG NEB (SCH) NEB ×4 (04:15→19:37)
[2016-09-08] MEDS: INSULIN NovoLIN REGULAR SUPPLEMENTAL SCALE SQ SCH ×4 (07:00→21:00)
--- NOTE | 2016-09-08 08:02 | PD.CARD.PN ---
Subjective Subjective Remarks Feels well. No chest pain or dyspnea Objective Vital Signs / I&O Vital Signs Date Time Temp Pulse Resp B/P Pulse Ox O2 Delivery O2 Flow Rate FiO2 09/08/16 06:00 83 09/08/16 06:00 83 28 144/73 95 09/08/16 04:00 90 09/08/16 04:00 98.1 90 29 129/77 94 09/08/16 03:00 89 38 118/92 09/08/16 03:00 89 09/08/16 02:01 86 21 125/61 99 09/08/16 02:00 85 09/08/16 00:00 78 09/08/16 00:00 98.4 78 21 101/59 95 09/07/16 22:00 92 09/07/16 22:00 92 32 134/60 88 09/07/16 20:00 98.7 90 34 117/58 89 09/07/16 20:00 90 09/07/16 19:47 96 21 09/07/16 18:00 91 09/07/16 16:00 99.0 83 20 92/54 97 09/07/16 16:00 83 09/07/16 14:00 84 09/07/16 12:00 97.8 80 38 125/96 98 09/07/16 12:00 80 09/07/16 10:00 85 I/O 09/07/16 09/07/16 09/07/16 09/08/16 09/08/16 09/08/16 07:00 15:00 23:00 07:00 15:00 23:00 Intake Total 240 ml 480 ml 240 ml 100 ml Output Total 300 ml 525 ml 200 ml 20 ml Balance -60 ml -45 ml 40 ml 80 ml Intake Oral 240 ml 480 ml 240 ml 100 ml IV Total 0 ml 0 ml 0 ml Output Urine Total 300 ml 525 ml 200 ml 20 ml # Voids 3 # Bowel Movements 0 0 0 0 Physical Exam Lungs rales bilaterally. Irregular. Rate controlled Assessment and Plan Assessment and Plan Hemodynamically stable Will increase dose of lisinopril. Stable CV. Kostas Zaragoza MD Sep 08, 2016 08:02
[2016-09-08] MEDS ORDERED: LISINOPRIL 5 MG TAB PO SCH (09:00)
[2016-09-08] MEDS: LISINOPRIL 5 MG TAB PO SCH (09:39)
[2016-09-08] MEDS: CLOPIDOGREL 75 MG TAB PO SCH (09:39)
[2016-09-08] MEDS: POTASSIUM CHLORIDE 10 MEQ CAP PO SCH ×2 (09:40→21:03)
[2016-09-08] MEDS: METOPROLOL TARTRATE 25 MG TAB PO SCH ×2 (09:40→21:03)
[2016-09-08] MEDS: ASPIRIN 81 MG CHEW TAB PO SCH (09:40)
[2016-09-08] MEDS: FUROSEMIDE 40 MG TAB PO SCH ×2 (09:40→17:50)
[2016-09-08] MEDS ORDERED: IOHEXOL 350 MG/ML 10 ML VIAL (for RAD DIAG) IV ONE (16:54)
--- NOTE | 2016-09-08 17:16 | HHI.PR ---
Subjective Remarks agitated in morning. no cp or sob Objective Vitals heart reg lung cta abd s/nt ext no edema Vital Signs Date Time Temp Pulse Resp B/P Pulse Ox O2 Delivery O2 Flow Rate FiO2 09/08/16 12:00 84 09/08/16 12:00 97.5 82 23 129/65 98 09/08/16 09:07 99 Nasal Cannula 2.00 09/08/16 08:00 97.8 91 43 89 09/08/16 08:00 79 09/08/16 06:00 83 09/08/16 06:00 83 28 144/73 95 09/08/16 04:00 90 09/08/16 04:00 98.1 90 29 129/77 94 09/08/16 03:00 89 38 118/92 09/08/16 03:00 89 09/08/16 02:01 86 21 125/61 99 09/08/16 02:00 85 09/08/16 00:00 78 09/08/16 00:00 98.4 78 21 101/59 95 09/07/16 22:00 92 09/07/16 22:00 92 32 134/60 88 09/07/16 20:00 98.7 90 34 117/58 89 09/07/16 20:00 90 09/07/16 19:47 96 21 09/07/16 18:00 91 09/07/16 09/07/16 09/08/16 14:59 22:59 06:59 Intake Total 480 ml 240 ml 100 ml Output Total 525 ml 200 ml 20 ml Balance -45 ml 40 ml 80 ml Intake Oral 480 ml 240 ml 100 ml IV Total 0 ml 0 ml Output Urine Total 525 ml 200 ml 20 ml # Voids 3 # Bowel Movements 0 0 0 Result Diagram: 09/07/16 0322 09/07/16 0322 A/P Problem List: (1) ST elevation [place] (STEMI) Status: Acute Plan: Pt with cad presented with cardiogenic shock STEMI s/p LAD stent balloon pump now removed. systolic chf with EF 20-25% Pt is currently more compensated from his chf currently on laura/bb/asa/plavix/statin cont lasix/kcl transfer to [facility] PT supportive care addendum: called this evening by nursing for concern over reduced blood flow to pt's fee. He was complaining of pain and unable to get distal pulses except right DP with doppler. I discussed with dr Zaragoza and we agreed to get CTA with runoff to eval the anatomy and then decide on further rx. (2) Systolic dysfunction with acute on chronic heart failure Status: Acute Plan: see above (3) Afib Status: Chronic (4) CAD (coronary artery disease) Status: Chronic (5) Depression Status: Chronic Problem Qualifiers (1) ST elevation [place] (STEMI): Qualified Code: I21.02 - ST elevation myocardial infarction involving left anterior descending (LAD) coronary artery Lukas Rangel MD Sep 08, 2016 17:16
[2016-09-08] MEDS ORDERED: HEPARIN SODIUM - IV 10,000 UNITS/10 ML VIAL IV ONE (18:30)
--- NOTE | 2016-09-08 19:01 | RADRPT ---
EXAM DATE/TIME: 09/08/2016 16:35 [place] COMPARISON: No previous studies available for comparison. INDICATIONS : Evaluate for occlusion, ischemic feet. IV CONTRAST: 100 cc Omnipaque 350 (iohexol) IV RADIATION DOSE: 71.13 CTDIvol (mGy) MEDICAL HISTORY : Cardiovascular disease. Chronic obstructive pulmonary disease. Hypertension.TIA SURGICAL HISTORY : Coronary artery stent. ENCOUNTER: Initial ACUITY: 3 days PAIN SCALE: 8/10 LOCATION: Bilateral feet TECHNIQUE: Volumetric scanning was performed using a multi-row detector CT scanner. The data was post processed with a variety of visualization algorithms including full volume maximum intensity projection, multi -planar sliding thin slab reformation, curved planar reformation, and surface rendering techniques. Using automated exposure control and adjustment of the mA and/or kV according to patient size, radiat ion dose was kept as low as reasonably achievable to obtain optimal diagnostic quality images. DICO M format image data is available electronically for review and comparison. FINDINGS: Small bilateral pleural effusions are seen with an approximate 2.7 cm simple cyst in the right k idney. There is extensive atherosclerotic plaquing and calcifications involving the aorta and basical ly all of the visceral arteries. 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 The renal arteries demonstrate eccentric atherosclerotic plaquing and slight stenosis at the origin. The right sided runoff demonstrates extensive atherosclerotic plaquing with multiple areas of slight narrowing of the way down to the popliteal artery with significant disease below the knee and single vessel ru noff to the right ankle. The left side demonstrates acute thrombus within the left common femoral art renetta which extends all the way down to the popliteal artery and partially involves the trifurcation. T here is basically no runoff to the left ankle. CONCLUSION: 1. Acute thrombus extending from left common femoral artery to the popliteal artery and below the kne e vessels with basically no runoff to the left ankle. 2. Bilateral pleural effusions. 3. 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 Lidia Hager MD on September 08, 2016 at 18:51 Board Certified Radiologist. This report was verified electronically.
[2016-09-08 19:24] LABS: HEMATOCRIT 37.7 % (39.0-51.0); MEAN CELL VOLUME 94.5 FL (80.0-100.0); MEAN CORPUSCULAR HEMOGLOBIN 32.1 PG (27.0-34.0); PLATELET COUNT 139 TH/MM3 (150-450); RED BLOOD COUNT 3.99 MIL/MM3 (4.50-5.90); RED CELL DISTRIBUTION WIDTH 14.1 % (11.6-17.2); REVIEW FLAG FINAL
[2016-09-08 19:38] LABS: APTT (PATIENT) 29.9 SEC (24.3-30.1); INTERNATIONAL NORMALIZED RATIO 1.2 RATIO; PROTHROMBIN TIME - PATIENT 12.9 SEC (9.8-11.6)
--- NOTE | 2016-09-08 20:38 | PD.RAD ---
Radiology Note I spoke to Dr Rangel. The patient has acute occlusion of the entire outflow and runoff of the left lower extremity. Patient had cardiac cath secondary to STEMI with coronary stenting four days ago. Interventional team was mobilized. When I spoke to the patient it was apparent he was confused. The ICU nurse stated that this behavior was a new finding. I am unable to consent this patient for any intervention. There is no family or power of trademark attorney. Given the recent and rapid downturn of the patient's condition I feel it not appropriate to venture forward with any intervention. Dr Rangel was in agreement. Jr. Shankar,Alistair Paul MD Sep 08, 2016 20:38
[2016-09-08] MEDS: ATORVASTATIN 40 MG TAB PO SCH (21:00)
[2016-09-08] MEDS: HEPARIN-D5W INJ 250 ML IV SCH (22:25)
[2016-09-09] VITALS (10 sets, daily range): BP systolic 104–125; BP diastolic 49–89; PULSE 82–100; RESP 18–22; TEMP 96.7–98.6; O2SAT 93–100
[2016-09-09] MEDS ORDERED: HEPARIN SODIUM - IV 10,000 UNITS/10 ML VIAL IV PRN ×2 (00:30)
--- NOTE | 2016-09-09 01:59 | PD.PROCEDR ---
Procedure Note Procedure Central line Manuel Barnhart MD Sep 09, 2016 01:59
[2016-09-09] MEDS: RESP: ALBUTEROL 2.5 MG/IPRATROPIUM 0.5 MG NEB (SCH) NEB ×2 (03:54→08:14)
[2016-09-09] MEDS: CHLORHEXIDINE GLUCONATE 2 % 1 PACK (2 CLOTHS)(taper/protocol) TOPICAL SCH (04:00)
[2016-09-09 05:38] LABS: APTT (PATIENT) 95.8 SEC (24.3-30.1)
[2016-09-09] MEDS: INSULIN NovoLIN REGULAR SUPPLEMENTAL SCALE SQ SCH ×4 (06:47→20:33)
--- NOTE | 2016-09-09 07:44 | HHI.PR ---
Subjective Remarks Pt was not consentable last night per IR Pt seen now by me and cardiology and pt awake and says "yes" to the lifesaving procedure Objective Vitals oriented heart reg lungcta abd s/nt ext right leg still viable no pulses Vital Signs Date Time Temp Pulse Resp B/P Pulse Ox O2 Delivery O2 Flow Rate FiO2 09/09/16 04:00 96.7 82 20 110/63 99 09/09/16 04:00 82 09/09/16 00:00 84 09/09/16 00:00 98.1 84 20 125/89 93 09/08/16 20:00 96.3 86 28 129/61 99 09/08/16 20:00 86 09/08/16 19:38 100 Nasal Cannula 2.00 09/08/16 18:22 20 09/08/16 16:00 97.6 86 35 108/68 89 09/08/16 16:00 85 09/08/16 12:00 84 09/08/16 12:00 97.5 82 23 129/65 98 09/08/16 09:07 99 Nasal Cannula 2.00 09/08/16 08:00 97.8 91 43 89 09/08/16 08:00 79 09/08/16 09/08/16 09/09/16 15:00 23:00 07:00 Intake Total 450 ml 15 ml 121 ml Output Total 500 ml 1300 ml 900 ml Balance -50 ml -1285 ml -779 ml Intake Oral 450 ml IV Total 15 ml 121 ml Output Urine Total 500 ml 1300 ml 900 ml # Bowel Movements 0 0 0 Result Diagram: 09/08/16 1911 09/07/16 0322 A/P Problem List: (1) ST elevation [place] (STEMI) Status: Acute Plan: Pt with cad presented with cardiogenic shock STEMI s/p LAD stent balloon pump now removed. systolic chf with EF 20-25% Pt is currently more compensated from his chf currently on laura/bb/asa/plavix/statin cont lasix/kcl transfer to [facility] PT supportive care Pt with acute thrombus of the right LOSS PREVENTION DETECTIVE to popliteal IR team activated last night but pt was said to be more confused and not consentable with no family present. Now when evaluated by me this morning and cardiology he understands the question and says "yes" to the procedure of tpa lysis. will call IR ADDENDUM: SPOKE TO DR RAY. LYSIS WITH TPA CONTRAINDICATED GIVEN RECENT GROIN STICK. LONG THROMBOSIS TOUGH FOR HIM TO GET...SPOKE WITH DR PINEDO VASCULAR WHO IS COMING TO SEE PATIENT. HE IS ON HEPARIN GTT NOW. (2) Systolic dysfunction with acute on chronic heart failure Status: Acute Plan: see above (3) Afib Status: Chronic (4) CAD (coronary artery disease) Status: Chronic (5) Depression Status: Chronic Problem Qualifiers (1) ST elevation [place] (STEMI): Qualified Code: I21.02 - ST elevation myocardial infarction involving left anterior descending (LAD) coronary artery Lukas Rangel MD Sep 09, 2016 07:44
[2016-09-09] MEDS: LISINOPRIL 5 MG TAB PO SCH (09:00)
[2016-09-09] MEDS: METOPROLOL TARTRATE 25 MG TAB PO SCH ×2 (09:00→21:00)
--- NOTE | 2016-09-09 09:09 | PD.VS.CON ---
History of Present Illness Chief Complaint: L LE pain Consult Requested by: Dr. Rangel History of Present Illness 86 yo male with CHF (EF 25-30% on 09/05), CAD and PAD who presented with AMI and 4-5 d ago had coronary stents and IABP, since removed. Complains of L LE pain >> R LE pain but motor intact. No wounds Does have a h/o PAD interventions in past. Past/Family/Social History Past Medical History Afib CAD XOL HTN CHF Asthma TIA / CVOD Tobacco abuse Past Surgical History Cataracts ortho surgery leg and wrist and back LE endo revasc [facility] Social History tobacco abuse Family History NM Home Medications Reported Medications Warfarin 5 Mg Tab5 Mg PO DAILY #30 TAB Ref 0 08/23/16 Warfarin 2.5 Mg Tab2.5 Mg PO DAILY #30 TAB Ref 0 08/23/16 Albuterol 18 GM Inh (Ventolin Hfa 18 GM Inh)90 Mcg/Act Aer2 Puff INH Q4-6H PRN ( SHORTNESS OF BREATH) #1 INHALER Ref 0 08/23/16 Potassium Chloride ER 10 Meq Cap10 Meq PO BID #60 CAP Ref 0 08/23/16 Furosemide 40 Mg Tab40 Mg PO BID #60 TAB Ref 0 08/23/16 Atorvastatin 40 Mg Tab40 Mg PO HS #30 TAB Ref 0 08/23/16 Alprazolam 0.5 Mg Tab0.5 Mg PO Q4H PRN (ANXIETY) Ref 0 08/23/16 Discontinued Reported Medications Tramadol 50 Mg Tab50 Mg PO Q8H PRN (PAIN) Ref 0 08/23/16 Pantoprazole (Protonix)20 Mg Tab20 Mg PO DAILY #30 TAB Ref 0 08/23/16 Coded Allergies: Penicillin (Verified Allergy, Severe, EDEMA, HIVES, 05/19/15) Review of Systems Respiratory: COMPLAINS OF: Shortness of breath Cardiovascular: COMPLAINS OF: Dyspnea on Exertion, Lower Extremity Edema Musculoskeletal: COMPLAINS OF: Muscle aches, Back pain Physical Exam Vitals/I&O Date Time Temp Pulse Resp B/P Pulse Ox O2 Delivery O2 Flow Rate FiO2 09/09/16 08:14 93 Nasal Cannula 2.00 09/09/16 04:00 96.7 82 20 110/63 99 09/09/16 04:00 82 09/09/16 00:00 84 09/09/16 00:00 98.1 84 20 125/89 93 09/08/16 20:00 96.3 86 28 129/61 99 09/08/16 20:00 86 09/08/16 19:38 100 Nasal Cannula 2.00 09/08/16 18:22 20 09/08/16 16:00 97.6 86 35 108/68 89 09/08/16 16:00 85 09/08/16 12:00 84 09/08/16 12:00 97.5 82 23 129/65 98 09/08/16 09:07 99 Nasal Cannula 2.00 09/09/16 09/09/16 09/09/16 07:00 15:00 23:00 Intake Total 121 ml Output Total 900 ml Balance -779 ml Neuro: resting in bed, no distress and conversing HEENT: NC/AT Neck: no JVD Heart: irreg rate Lungs: dec BS Abdomen: NT Vascular: L LE very cool and cyanotic; no pulses or signals Extremities: SANTANA Laboratory Tests Test 09/08/16 09/09/16 19:11 03:31 White Blood Count 12.0 Red Blood Count 3.99 Hemoglobin 12.8 Hematocrit 37.7 Mean Corpuscular Volume 94.5 Mean Corpuscular Hemoglobin 32.1 Mean Corpuscular Hemoglobin 34.0 Concent Red Cell Distribution Width 14.1 Platelet Count 139 Mean Platelet Volume 8.9 Prothrombin Time 12.9 Prothromb Time International 1.2 Ratio Activated Partial 29.9 95.8 Thromboplast Time Last 48 hours Impressions Aorta w/Runoff CTA 09/08/16 0000 Signed Impressions: Service Date/Time: August 16:35 - CONCLUSION: 1. Acute thrombus extending from left common femoral artery to the popliteal artery and below the knee vessels with basically no runoff to the left ankle. 2. Bilateral pleural effusions. 3. 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 Lidia Hager MD Assessment and Plan Plan Likely subacute L LE thrombus, or more precisely, acute or subacute on chronic occlusive disease. I think pt's best chance of limb salvage is thrombectomy. I called IR and they were setting up to perform percutaneous embolectomy/lysis. I am happy to perform surgical embolectomy in the OR and I discussed the need for likely groin and lower leg incisions with the patient. He understands the risk of limb loss, worsening of cardiac function, and systemic morbidities given the acuity and his underlying disease states. Discussed with Dr. Rangel. Lauri Castellanos MD FACS RPVI operational communication chief [facility] - Heart and Vascular Surgery at [facility] [phone] Lauri Castellanos MD Sep 09, 2016 09:09
[2016-09-09] MEDS ORDERED: BUPIVACAINE HCL PF 0.5% 30 ML VIAL ONE (11:26)
[2016-09-09] MEDS ORDERED: HEPARIN SODIUM - IV 10,000 UNITS/10 ML VIAL ONE ×2 (11:26→11:29)
[2016-09-09] MEDS ORDERED: VANCOMYCIN HCL 1000 MG VIAL ONE (11:27)
[2016-09-09] MEDS ORDERED: PROPOFOL 200 MG/20 ML AMP IV ONE (12:23)
[2016-09-09] MEDS ORDERED: PHENYLEPH/NS 1000 MCG/10 ML SYR IV ONE (12:23)
[2016-09-09] MEDS ORDERED: ONDANSETRON HCL 4 MG/2 ML VIAL IV PUSH ONE (12:24)
[2016-09-09] MEDS ORDERED: IOHEXOL 300 MG/ML 50 ML BTL (for RAD DIAG) ONE (12:31)
[2016-09-09] MEDS ORDERED: THROMBIN (TOPICAL) 20,000 UNIT SPRAY KIT OTHER ONE (13:00)
--- NOTE | 2016-09-09 13:34 | HHI.PR ---
cc: Lukas Rangel MD; Chandra Sandoval DO Immediate Post Op Note Procedure Date: Sep 09, 2016 Pre Op Diagnosis: severe L LE ischemia Post Op Diagnosis: acute on chronic L LE ischemia Surgeon: Lauri Castellanos Staff Analyst(s): Elias Rodrigues Procedure: 1. BK pop/TPT endarterectomy and patch angioplasty 2. 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 L LE angiogram 4. Embolectomy of popliteal artery 5. embolectomy of peroneal artery Findings: acute on mostly chronic occlusive disease Additional Information: discussed with Dr. Rangel and Dr. Chaparro - vicente anticoagulate post-op Complications: none apparent Specimen(s) removed: none for pathology Estimated blood loss: 200mL Anesthesia: General Drains: None Fluids: 1500mL x'oid; 250 mL UOP IVF Patient to: PACU Patient Condition: Critical Implant/Devices: SEE IMPLANT LOG (if applicable) Date/Time of Procedure: SEE SURGICAL CARE RECORD Lauri Castellanos MD Sep 09, 2016 13:33
--- NOTE | 2016-09-09 13:52 | RADRPT ---
EXAM DATE/TIME: 09/08/2016 00:00 [place] COMPARISON : No previous studies available for comparison. INDICATIONS : Patient presents with reent history of cardiac catheterization now with left leg pain. HISTORY OF PRESENT ILLNESS: 86-year-old gentleman initially presented as a STEMI alert resulting and coronary artery stenting per formed a proximally 4 days ago. Patient developed acute limb threatening ischemia changes involve the left foot and I was consulted for thrombolysis. The patient has multiple comorbid factors. The on ca ll interventional team was mobilized. In speaking with the patient in the interventional suite it bec ayan apparent that the patient was confused and clearly in a state of significant mental status change relative to earlier. The patient was not be positioned to give consent for the procedure. We have no power of program manager slp listed or telephone number other than a neighbor available to me. The patient's re cent angiogram is a contraindication for catheter directed thrombolysis. The only thing I would potdavida farooqy be able to offer would be mechanical thrombectomy. I have significant concern for this as the patient has a significant thrombus load. The likelihood of a technical success with this volume of th rombus is exceedingly low. I would also be concerned for renal impairment relating to the degree of h emolysis. I feel a better avenue of approach would be for mechanical thrombectomy in the hands of vas cular surgery with possible followup small volume thrombectomy. I spoke with Dr. Claire croft ng this. PAST MEDICAL HISTORY : 1. Hx TIA, CHF, CAD, HTN, AFIB, asthma, COPD, hyperlipidemia, CA PAST SURGICAL HISTORY : 1. Hx cardiac stent, cataract removal, thoracic surgery, right wrist repair, left hip repair, ton sillectomy. PHYSICAL EXAMINATION: General: Patient is confused. Is not oriented to time or place. He is in no acute distress but is unable to ho ld still. Left lower: there is a dusky appearance of the left lower extremity without palpable or dopplerable pulses. Signi ficant delayed capillary refill. IMAGING STUDIES: CTA with runoff September 08, 2016 was reviewed. This shows complete occlusion of the entire a one wall of the left lower extremity felt to be acute in nature given its appearance. ASSESSMENT: Poor candidate for catheter directed thrombolysis as well as mechanical thrombectomy as detailed in t nhan above discussion. PLAN: Consider tag team approach with vascular surgery as detailed above. TIME SPENT: 30 minutes Alistair Chaparro Jr., MD on September 09, 2016 at 13:40 Board Certified Radiologist. This report was verified electronically.
[2016-09-09] MEDS ORDERED: fentaNYL CITRATE 250 MCG/5 ML AMP ONE (14:36)
[2016-09-09] MEDS: FUROSEMIDE 40 MG TAB PO SCH ×2 (15:35→18:00)
[2016-09-09] MEDS: ASPIRIN 81 MG CHEW TAB PO SCH (15:35)
[2016-09-09] MEDS: CLOPIDOGREL 75 MG TAB PO SCH (15:35)
[2016-09-09] MEDS: POTASSIUM CHLORIDE 10 MEQ CAP PO SCH ×2 (15:35→20:26)
[2016-09-09] MEDS: MORPHINE SULFATE 4 MG/ML INJ IV PRN ×6 (15:36→20:26)
[2016-09-09 18:34] LABS: APTT (PATIENT) 28.2 SEC (24.3-30.1)
[2016-09-09] MEDS: ATORVASTATIN 40 MG TAB PO SCH (20:26)
[2016-09-09] MEDS: HEPARIN-D5W INJ 250 ML IV SCH (20:33)
[2016-09-10] VITALS (14 sets, daily range): BP systolic 88–136; BP diastolic 45–60; PULSE 79–99; RESP 16–26; TEMP 97.8–98.9; O2SAT 94–100
[2016-09-10 03:52] LABS: APTT (PATIENT) 84.9 SEC (24.3-30.1)
[2016-09-10] MEDS: INSULIN NovoLIN REGULAR SUPPLEMENTAL SCALE SQ SCH ×4 (06:34→20:18)
[2016-09-10] MEDS: MORPHINE SULFATE 8 MG/ML INJ IV PUSH PRN ×3 (06:35→12:54)
[2016-09-10] MEDS ORDERED: LACTULOSE SYRUP 20 GM/30 ML CUP PO ONE (07:30)
[2016-09-10] MEDS ORDERED: BISACODYL EC 5 MG TABEC PO ONE (07:30)
--- NOTE | 2016-09-10 08:13 | HHI.PR ---
Subjective Remarks c/o right lower ext pain again overnight. says it was better immediately after surgery. nurses say pulses not dopplerable but not changed since arriving back to icu yesterday. pt asking for laxatives. Objective Vitals oriented heart reg lung cta abd s/tn ext left foot cool. no palpable pulse. left groin eccymosis with extension to lat hip flank. Vital Signs Date Time Temp Pulse Resp B/P Pulse Ox O2 Delivery O2 Flow Rate FiO2 09/10/16 06:00 95 09/10/16 04:00 96 09/10/16 04:00 98.3 96 21 133/53 100 09/10/16 02:00 96 09/10/16 00:00 98.9 86 26 109/50 99 09/10/16 00:00 86 09/09/16 22:00 91 09/09/16 20:00 91 09/09/16 20:00 97.7 91 20 116/60 97 104/49 09/09/16 19:58 100 Nasal Cannula 2.00 09/09/16 18:00 94 09/09/16 16:00 91 09/09/16 16:00 98.6 100 18 117/72 97 09/09/16 14:45 97.5 82 16 112/58 98 Nasal Cannula 3 103/48 09/09/16 14:30 88 16 105/55 97 Nasal Cannula 3 96/43 09/09/16 14:15 96 16 103/53 96 Nasal Cannula 3 94/40 09/09/16 14:10 98.2 96 15 110/64 100 Simple Mask 7 93/50 09/09/16 10:00 85 09/09/16 08:14 93 Nasal Cannula 2.00 09/09/16 09/09/16 09/10/16 15:00 23:00 07:00 Intake Total 2055 ml 386 ml 138 ml Output Total 600 ml 800 ml 500 ml Balance 1455 ml -414 ml -362 ml Intake Oral 180 ml 360 ml 0 ml IV Total 125 ml 26 ml 138 ml Other 1750 ml Output Urine Total 400 ml 800 ml 500 ml Estimated Blood Loss 200 ml # Bowel Movements 0 0 Result Diagram: 09/08/16191009/07/162 A/P Problem List: (1) ST elevation TX (STEMI) Status: Acute Plan: Pt with cad presented with cardiogenic shock STEMI s/p LAD stent balloon pump now removed. 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 s/p on 09/09: pop/TPT endarterectomy and patch angioplasty [employer] endarterectomy and patch angioplasty L LE angiogram Embolectomy of popliteal artery embolectomy of peroneal artery currently on laura/bb/asa/plavix/statin cont lasix/kcl hold in icu for now cont heparin gtt pain control laxatives PT supportive care long talk with pt about his left leg ischemia we also discussed the possibility of failure of our rx and amputation...being high mortality (2) Ischemic leg Status: Acute Plan: see above (3) Systolic dysfunction with acute on chronic heart failure Status: Acute Plan: see above (4) Afib Status: Chronic (5) CAD (coronary artery disease) Status: Chronic (6) Depression Status: Chronic Problem Qualifiers (1) ST elevation [place] (STEMI): Qualified Code: I21.02 - ST elevation myocardial infarction involving left anterior descending (LAD) coronary artery Lukas Rangel MD Sep 10, 2016 08:13
[2016-09-10] MEDS: oxyCODONE/ACETAMINOPHEN 10 MG/325 MG TAB PO PRN (09:06)
[2016-09-10] MEDS: METOPROLOL TARTRATE 25 MG TAB PO SCH ×2 (09:06→20:18)
[2016-09-10] MEDS: CLOPIDOGREL 75 MG TAB PO SCH (09:07)
[2016-09-10] MEDS: POTASSIUM CHLORIDE 10 MEQ CAP PO SCH ×2 (09:07→20:17)
[2016-09-10] MEDS: ASPIRIN 81 MG CHEW TAB PO SCH (09:07)
[2016-09-10] MEDS: LISINOPRIL 5 MG TAB PO SCH (09:07)
[2016-09-10] MEDS: FUROSEMIDE 40 MG TAB PO SCH ×2 (09:07→17:10)
--- NOTE | 2016-09-10 09:32 | PD.CARD.PN ---
Subjective Subjective Remarks Pt w/o chest pain or dyspnea, c/o L leg pain/burning, no better since procedure yesterday. Objective Medications Administered Medications Medications (Trade) Dose Ordered Sig/Huy Route PRN Reason Start Time Stop Time Status Last Admin Dose Admin Oxycodone/ Acetaminophen (Percocet 5-325 Mg) 1 tab Q4H PRN PO PAIN SCALE 3 TO 5 09/04/16 21:45 09/07/16 05:12 Oxycodone/ Acetaminophen (Percocet 10-325 Mg) 1 tab Q4H PRN PO PAIN SCALE 6 TO 10 09/04/16 21:45 09/10/16 09:06 Morphine Sulfate (Morphine Inj) 2 mg Q30M PRN IV PUSH BREAKTHROUGH PAIN 09/04/16 21:45 09/10/16 06:35 Aspirin (Aspirin Chew) 81 mg DAILY PO 09/05/16 09:00 09/10/16 09:07 Clopidogrel Bisulfate (Plavix) 75 mg DAILY PO 09/05/16 09:00 09/10/16 09:07 Atorvastatin Calcium (Lipitor) 40 mg HS PO 09/05/16 21:00 09/09/16 20:26 Metoprolol Tartrate (Lopressor) 25 mg Q12HR PO 09/06/16 14:00 09/10/16 09:06 Insulin Human Regular (NovoLIN R SUPPLEMENTAL SCALE) 1 ACHS SQ 09/07/16 16:00 09/09/16 20:33 Alprazolam (Xanax) 0.5 mg Q4H PRN PO ANXIETY 09/07/16 13:30 09/07/16 21:49 Furosemide (Lasix) 40 mg BID@09,18 PO 09/07/16 18:00 09/10/16 09:07 Potassium Chloride (KCl) 10 meq BID PO 09/07/16 21:00 09/10/16 09:07 Lisinopril 5 mg 5 mg DAILY PO 09/08/16 09:00 09/10/16 09:07 Heparin Sodium/ Dextrose (Heparin-D5W Inj) 250 ml @ 0 mls/hr TITRATE IV 09/08/16 18:30 09/09/16 20:33 Morphine Sulfate (Morphine Inj) 4 mg Q30M PRN IV PAIN 4-10 09/08/16 23:15 09/09/16 20:26 Vital Signs / I&O Vital Signs Date Time Temp Pulse Resp B/P Pulse Ox O2 Delivery O2 Flow Rate FiO2 09/10/16 08:09 97 Nasal Cannula 2.00 09/10/16 06:00 95 09/10/16 04:00 96 09/10/16 04:00 98.3 96 21 133/53 100 09/10/16 02:00 96 09/10/16 00:00 98.9 86 26 109/50 99 09/10/16 00:00 86 09/09/16 22:00 91 09/09/16 20:00 91 09/09/16 20:00 97.7 91 20 116/60 97 104/49 09/09/16 19:58 100 Nasal Cannula 2.00 09/09/16 18:00 94 09/09/16 16:00 91 09/09/16 16:00 98.6 100 18 117/72 97 09/09/16 14:45 97.5 82 16 112/58 98 Nasal Cannula 3 103/48 09/09/16 14:30 88 16 105/55 97 Nasal Cannula 3 96/43 09/09/16 14:15 96 16 103/53 96 Nasal Cannula 3 94/40 09/09/16 14:10 98.2 96 15 110/64 100 Simple Mask 7 93/50 09/09/16 10:00 85 I/O 09/09/16 09/09/16 09/09/16 09/10/16 09/10/16 09/10/16 07:00 15:00 23:00 07:00 15:00 23:00 Intake Total 121 ml 2055 ml 386 ml 138 ml Output Total 900 ml 600 ml 800 ml 500 ml Balance -779 ml 1455 ml -414 ml -362 ml Intake Oral 180 ml 360 ml 0 ml IV Total 121 ml 125 ml 26 ml 138 ml Other 1750 ml Output Urine Total 900 ml 400 ml 800 ml 500 ml Estimated Blood Loss 200 ml # Bowel Movements 0 0 0 Physical Exam GENERAL: This is a well-nourished, well-developed patient, in no apparent distress. CARDIOVASCULAR: Regular rate and rhythm without murmurs, gallops, or rubs. RESPIRATORY: Clear to auscultation. Breath sounds equal bilaterally. No wheezes , rales, or rhonchi. GASTROINTESTINAL: Abdomen soft, non-tender, nondistended. Normal active bowel sounds MUSCULOSKELETAL: Left foot mottled, cold, no pulse palpable (discussed with nurse who has informed vascular surgery.) NEURO: Alert & Oriented x4 to person, place, time, situation. Moves all ext x4 Laboratory Laboratory Tests Test 09/09/16 09/09/16 09/10/16 10:25 18:17 02:50 Blood Type O POSITIVE Antibody Screen NEGATIVE Crossmatch Leukocyte-Reduced Red Blood Cells Blood Bank Comment Activated Partial 28.2 SEC 84.9 SEC Thromboplast Time Imaging Last Impressions Aorta w/Runoff CTA 09/08/16 0000 Signed Impressions: Service Date/Time: August 16:35 - CONCLUSION: 1. Acute thrombus extending from left common femoral artery to the popliteal artery and below the knee vessels with basically no runoff to the left ankle. 2. Bilateral pleural effusions. 3. 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 Lidia Hager MD Chest X-Ray 09/07/16 0000 Signed Impressions: Service Date/Time: Wednesday, September 07, 2016 04:37 - CONCLUSION: Improved. Trace bibasilar atelectasis currently seen. Elias Cordero MD Lower Extremity Ultrasound 09/06/16 0000 Signed Impressions: Service Date/Time: Tuesday, September 06, 2016 21:43 - CONCLUSION: No DVT. Alistair Chaparro Jr., MD Assessment and Plan Problem List: (1) ST elevation [place] (STEMI) Assessment and Plan: STEMI s/p LAD stent balloon pump now removed. on asa/plavix/bb/statin systolic chf with EF 20-25% Pt is currently more compensated from his chf acute on chronic thrombosis/ischemic left leg (2) Atrial fibrillation, chronic Assessment and Plan: currently on heparin ggt, slightly fast afib rates, will increase his metoprolol (3) Ischemic leg Assessment and Plan: Left foot cold/mottled w/o pulses, asked nurse to f/u with Vascular surgery. Problem Qualifiers (1) ST elevation ME (STEMI): Qualified Code: I21.02 - ST elevation myocardial infarction involving left anterior descending (LAD) coronary artery Herman Scott MD Sep 10, 2016 09:32
--- NOTE | 2016-09-10 09:57 | PD.VS.PN ---
Subjective POD #: 1 Procedure(s): L groin and TPT reconstruction, embolectomy, angio Subjective/Hospital Course pain controlled; still has profound L foot ischemia but no wounds surgical sites ok Objective Vitals/I&O Date Time Temp Pulse Resp B/P Pulse Ox O2 Delivery O2 Flow Rate FiO2 09/10/16 08:09 97 Nasal Cannula 2.00 09/10/16 06:00 95 09/10/16 04:00 96 09/10/16 04:00 98.3 96 21 133/53 100 09/10/16 02:00 96 09/10/16 00:00 98.9 86 26 109/50 99 09/10/16 00:00 86 09/09/16 22:00 91 09/09/16 20:00 91 09/09/16 20:00 97.7 91 20 116/60 97 104/49 09/09/16 19:58 100 Nasal Cannula 2.00 09/09/16 18:00 94 09/09/16 16:00 91 09/09/16 16:00 98.6 100 18 117/72 97 09/09/16 14:45 97.5 82 16 112/58 98 Nasal Cannula 3 103/48 09/09/16 14:30 88 16 105/55 97 Nasal Cannula 3 96/43 09/09/16 14:15 96 16 103/53 96 Nasal Cannula 3 94/40 09/09/16 14:10 98.2 96 15 110/64 100 Simple Mask 7 93/50 09/09/16 10:00 85 09/10/16 09/10/16 09/10/16 06:59 14:59 22:59 Intake Total 138 ml Output Total 500 ml Balance -362 ml Exam: L LE cool below knee incisions ok L groin ecchymotic, soft Laboratory Laboratory Tests Test 09/09/16 09/09/16 09/10/16 10:25 18:17 02:50 Blood Type O POSITIVE Antibody Screen NEGATIVE Crossmatch Leukocyte-Reduced Red Blood Cells Blood Bank Comment Activated Partial 28.2 84.9 Thromboplast Time Assessment and Plan Plan 1. acute on chronic L LE ischemia 2. Likely to needs L AKA at some point but only when pain sufficient to warrant. In meantime, will continue to allow cardiac function to improve/ stabilize 3. Continue heparin gtt 4. Ok to WBAT to L LE Lauri Castellanos MD FACS RPVI district traffic chief [facility] - Heart and Vascular Surgery at [facility] [phone] Lauri Castellanos MD Sep 10, 2016 09:57
[2016-09-10] MEDS: HEPARIN-D5W INJ 250 ML IV SCH (11:19)
[2016-09-10 13:32] LABS: APTT (PATIENT) 76.7 SEC (24.3-30.1)
[2016-09-10] MEDS: HYDROmorphone HCL PF 1 MG/ML VIAL IV PUSH PRN (13:54)
[2016-09-10] MEDS ORDERED: HYDROmorphone HCL PF 2 MG/ML VIAL IV PUSH ONE (14:00)
[2016-09-10] MEDS ORDERED: NALOXONE HCL 0.4 MG/ML AMP IV PRN (14:45)
[2016-09-10] MEDS ORDERED: HYDROmorphone HCL PCA 6 MG/30 ML IV SCH (14:45)
[2016-09-10 18:52] LABS: APTT (PATIENT) 76.2 SEC (24.3-30.1)
[2016-09-10] MEDS: LACTULOSE SYRUP 20 GM/30 ML CUP PO SCH (20:18)
[2016-09-10] MEDS: ATORVASTATIN 40 MG TAB PO SCH (20:18)
--- NOTE | 2016-09-10 20:39 | MP ---
cc: SHANKAR CASTELLANOS MD DATE OF SURGERY: 09/09/2016. PREOPERATIVE DIAGNOSIS: Left lower extremity profound ischemia. POSTOPERATIVE DIAGNOSIS: Acute on chronic left lower extremity ischemia. OPERATIVE PROCEDURE PERFORMED: 1. Left below-knee popliteal and tibioperoneal trunk endarterectomy with patch angioplasty. 2. Left common femoral artery endarterectomy and patch angioplasty. 3. Left lower extremity angiogram. 4. Embolectomy of femoropopliteal artery via leg incision. 5. Embolectomy of peroneal artery via leg incision. ATTENDING SURGEON: Shankar Castellanos MD. SOLAR SITE ASSESSMENT SPECIALIST SURGEON: Man Alejandre. ANESTHESIA: General. INDICATIONS FOR THE PROCEDURE: Mr. Horn is an 86-year-old gentleman with a significant cardiovascular history. He presented with acute TX several days ago and was taken to the label fuser tender emergently. He had coronary stents placed and postoperatively a balloon placed to the left groin. This has subsequently been weaned and he has an ejection fraction of 20%. He is improved from a cardiac standpoint since his catheterization but then developed left lower extremity pain. He was motor intact but has profound ischemia and is taken to the operating room for repair. I had a long discussion with the patient and based on my review of his CT scan, I felt this was acute on chronic ischemia. DESCRIPTION OF THE PROCEDURE IN DETAIL: Informed consent was obtained from the patient. He was taken to the operating room and placed supine on the operating room table. An appropriate time-out was taken to ensure the patient's identity, operative site and the planned procedure. The administration of a gram of vancomycin was initiated prior to skin incision and will be discontinued after a single preoperative dose. Vancomycin was chosen because of the patient's PENICILLIN ALLERGY. Everyone in the room agreed with the time-out, and we proceeded. He was prepped from his nipples to his toes. An incision was made in the below-knee popliteal fossa and carried down through the subcutaneous tissue with electrocautery. Muscle was divided and the popliteal artery was identified and it was noted to be extremely calcified and we dissected it down to the tibioperoneal trunk including the anterior tibial artery takeoff, which was encircled with Vesseloop. The patient was systemically heparinized and proximal and distal control was obtained with profunda clamps. A longitudinal arteriotomy was made below and extended with [place] scissors. The artery was extremely calcified with near occlusive plaque. This was endarterectomized without difficulty and a Audrey embolectomy catheter was passed cephalad and distally and fresh thrombus was obtained from the femoral artery, popliteal artery and indeed the peroneal artery. However, we could not pass the Audrey embolectomy catheter down the anterior tibial artery. The arteriotomy was closed with a bovine pericardial patch which was sewn on using running 5-0 Prolene suture. At completion, it was flushed and noted to be hemostatic. There was improvement of the inflow and some back bleeding noted. However, there was not pulsatile bleeding and so decision was made to explore the groin. Incision was made in the base of the groin and carried down through the subcutaneous tissue with electrocautery. The common femoral artery was identified and dissected free. It again was noted to be quite calcified. The two branches of the profunda as well as the external iliac artery were all dissected free and encircled with Vesseloops and profunda clamps were placed on this. A longitudinal arteriotomy was made with a #11 blade and extended with [place] scissors. Embolectomy catheters were passed down the superficial femoral artery with retrieval of some acute and chronic thrombus and intra-arterial contents. The artery was then closed with a patch using running 5-0 Prolene suture. A 21-gauge micropuncture needle was used to access the distal tibioperoneal trunk patch and this was exchanged using a micropuncture sheath through which an angiogram showed the patient had peroneal artery runoff down to the ankle. The sheath was removed. The patchotomy was closed with 6-0 Prolene suture and both wounds were closed with 2-0 Polysorb, 3-0 Polysorb and 4-0 Monocryl. The sponge and needle counts were correct at the end of the case. I was present, scrubbed and performed the entire procedure. MD MARIANO Lucio/ANTWON /8:06 AM /8:29 PM [place]
[2016-09-10] MEDS: PCA - TOTAL MG DILAUDID DELIVERED PER SHIFT SCH (21:24)
[2016-09-10] MEDS: ALPRAZolam 0.5 MG TAB PO PRN (22:51)
[2016-09-10] MEDS ORDERED: SODIUM CHLOR 0.9% 1000 ML INJ 2,000 ML IV ONE (23:00)
[2016-09-11] VITALS (13 sets, daily range): BP systolic 86–129; BP diastolic 50–88; PULSE 85–96; RESP 6–25; TEMP 97.6–98.2; O2SAT 93–100
[2016-09-11] MEDS: HEPARIN-D5W INJ 250 ML IV SCH ×2 (00:38→19:06)
[2016-09-11 01:44] LABS: APTT (PATIENT) 57.8 SEC (24.3-30.1)
[2016-09-11] MEDS ORDERED: LIDOCAINE HCL 1% 50 ML VIAL ONE (03:46)
--- NOTE | 2016-09-11 05:37 | PD.PROCEDR ---
Procedure Note Procedure Right femoral line Manuel Barnhart MD Sep 11, 2016 05:37
[2016-09-11 05:44] LABS: AUTOMATED NEUTROPHIL # 7.5 TH/MM3 (1.8-7.7); BASOPHIL % 0.4 % (0.0-2.0); EOSINOPHIL # 0.1 TH/MM3 (0-0.4); EOSINOPHIL % 0.7 % (0.0-4.0); HEMATOCRIT 25.5 % (39.0-51.0); HEMO FLAGS DIFF FINAL; LYMPH % 8.7 % (9.0-44.0); LYMPHOCYTE # 0.9 TH/MM3 (1.0-4.8); MEAN CELL VOLUME 96.6 FL (80.0-100.0); MEAN CORPUSCULAR HEMOGLOBIN 33.4 PG (27.0-34.0); MEAN CORPUSCULAR HGB CONC 34.6 % (32.0-36.0); MONO % 15.1 % (0.0-8.0); NEUT % 75.1 % (16.0-70.0); PLATELET COUNT 135 TH/MM3 (150-450); RED BLOOD COUNT 2.64 MIL/MM3 (4.50-5.90); RED CELL DISTRIBUTION WIDTH 14.7 % (11.6-17.2); WHITE BLOOD COUNT 9.9 TH/MM3 (4.0-11.0)
[2016-09-11] MEDS: PCA - TOTAL MG DILAUDID DELIVERED PER SHIFT SCH ×3 (06:00→22:28)
[2016-09-11 06:15] LABS: BICARBONATE 23.9 MEQ/L (21.0-32.0); POTASSIUM 3.9 MEQ/L (3.5-5.1)
[2016-09-11 06:30] LABS: CALCIUM-PROTEIN CORRECTED 8.6 MG/DL (8.5-10.1)
[2016-09-11] MEDS: INSULIN NovoLIN REGULAR SUPPLEMENTAL SCALE SQ SCH ×4 (07:00→19:56)
--- NOTE | 2016-09-11 07:37 | PD.VS.PN ---
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; still has profound L foot ischemia but no wounds surgical sites ok pt aware of need for major amputation Objective Vitals/I&O Date Time Temp Pulse Resp B/P Pulse Ox O2 Delivery O2 Flow Rate FiO2 09/11/16 06:00 86 09/11/16 06:00 16 09/11/16 04:00 88 09/11/16 04:00 97.6 88 25 86/50 100 09/11/16 02:00 91 09/11/16 00:00 98.0 88 21 89/51 93 98/51 09/11/16 00:00 88 09/10/16 22:00 99 09/10/16 21:24 26 09/10/16 20:00 81 09/10/16 20:00 98.4 81 17 88/49 94 95/45 09/10/16 19:37 98 2.00 09/10/16 18:00 79 09/10/16 16:00 83 09/10/16 16:00 98.1 83 17 116/58 97 113/52 09/10/16 14:24 16 09/10/16 14:00 84 09/10/16 12:00 81 09/10/16 12:00 98.0 81 16 106/58 97 93/58 09/10/16 10:24 20 09/10/16 10:00 97 09/10/16 08:09 97 Nasal Cannula 2.00 09/10/16 08:00 98 09/10/16 08:00 97.8 98 20 136/60 95 109/47 09/11/16 09/11/16 09/11/16 07:00 15:00 23:00 Intake Total 2456 ml Output Total 450 ml Balance 2006 ml Exam: L LE warm to knee Incisions ok Persistent groin ecchymosis Laboratory Laboratory Tests Test 09/10/16 09/10/16 09/11/16 09/11/16 12:40 18:00 01:12 05:25 Activated Partial 76.7 76.2 57.8 Thromboplast Time White Blood Count 9.9 Red Blood Count 2.64 Hemoglobin 8.8 Hematocrit 25.5 Mean Corpuscular Volume 96.6 Mean Corpuscular Hemoglobin 33.4 Mean Corpuscular Hemoglobin 34.6 Concent Red Cell Distribution Width 14.7 Platelet Count 135 Mean Platelet Volume 8.7 Neutrophils (%) (Auto) 75.1 Lymphocytes (%) (Auto) 8.7 Monocytes (%) (Auto) 15.1 Eosinophils (%) (Auto) 0.7 Basophils (%) (Auto) 0.4 Neutrophils # (Auto) 7.5 Lymphocytes # (Auto) 0.9 Monocytes # (Auto) 1.5 Eosinophils # (Auto) 0.1 Basophils # (Auto) 0.0 CBC Comment DIFF FINAL Differential Comment Sodium Level 137 Potassium Level 3.9 Chloride Level 105 Carbon Dioxide Level 23.9 Anion Gap 8 Blood Urea Nitrogen 39 Creatinine 1.01 Estimat Glomerular Filtration 70 Rate Random Glucose 137 Calcium Level 7.3 Protein Corrected Calcium 8.6 Total Protein 4.8 Assessment and Plan Plan 1. acute on chronic L LE ischemia 2. Likely to needs L AKA at some point but only when pain sufficient to warrant. In meantime, will continue to allow cardiac function to improve/ stabilize 3. Continue heparin gtt 4. Ok to WBAT to L LE Lauri Castellanos MD FACS RPVI mixing machine tender cork rod [facility] - Heart and Vascular Surgery at [facility] [phone] Lauri Castellanos MD Sep 11, 2016 07:37
[2016-09-11 08:05] LABS: APTT (PATIENT) 46.8 SEC (24.3-30.1)
--- NOTE | 2016-09-11 08:41 | HHI.PR ---
Subjective Remarks pt pain better controlled. he is not sure about the aka and wants to talk it over with his friend Objective Vitals oriented heart reg lung cta abd s/nt ext left foot cold with no pulses. reduced mvmt and discoloration. no necrosis noted Vital Signs Date Time Temp Pulse Resp B/P Pulse Ox O2 Delivery O2 Flow Rate FiO2 09/11/16 06:00 86 09/11/16 06:00 16 09/11/16 04:00 88 09/11/16 04:00 97.6 88 25 86/50 100 09/11/16 02:00 91 09/11/16 00:00 98.0 88 21 89/51 93 98/51 09/11/16 00:00 88 09/10/16 22:00 99 09/10/16 21:24 26 09/10/16 20:00 81 09/10/16 20:00 98.4 81 17 88/49 94 95/45 09/10/16 19:37 98 2.00 09/10/16 18:00 79 09/10/16 16:00 83 09/10/16 16:00 98.1 83 17 116/58 97 113/52 09/10/16 14:24 16 09/10/16 14:00 84 09/10/16 12:00 81 09/10/16 12:00 98.0 81 16 106/58 97 93/58 09/10/16 10:24 20 09/10/16 10:00 97 09/10/16 09/10/16 09/11/16 15:00 23:00 07:00 Intake Total 817 ml 542 ml 2456 ml Output Total 275 ml 225 ml 450 ml Balance 542 ml 317 ml 2006 ml Intake Oral 700 ml 240 ml 240 ml IV Total 117 ml 302 ml 2216 ml Output Urine Total 275 ml 225 ml 450 ml # Bowel Movements 0 2 3 Result Diagram: 09/11/1625 09/11/16 0525 A/P Problem List: (1) ST elevation MS (STEMI) Status: Acute Plan: Pt with cad presented with cardiogenic shock STEMI s/p LAD stent balloon pump now removed. 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 on dilaudid chain maker hand laxatives PT supportive care long talk with pt about his left leg ischemia he is given the option for AKA at some point per Vascular ..he would like to discuss with his friend today as he is not sure about proceeding to OR....He is contemplating surgery vs hospice....will await his decision. (2) Ischemic leg Status: Acute Plan: see above (3) Systolic dysfunction with acute on chronic heart failure Status: Acute Plan: see above (4) Afib Status: Chronic (5) CAD (coronary artery disease) Status: Chronic (6) Depression Status: Chronic Problem Qualifiers (1) ST elevation MS (STEMI): Qualified Code: I21.02 - ST elevation myocardial infarction involving left anterior descending (LAD) coronary artery Lukas Rangel MD Sep 11, 2016 08:41
[2016-09-11] MEDS: LACTULOSE SYRUP 20 GM/30 ML CUP PO SCH ×2 (09:00→19:55)
[2016-09-11] MEDS: LISINOPRIL 5 MG TAB PO SCH (09:00)
[2016-09-11] MEDS: FUROSEMIDE 40 MG TAB PO SCH (09:00)
[2016-09-11] MEDS: METOPROLOL TARTRATE 25 MG TAB PO SCH ×2 (09:00→19:56)
[2016-09-11] MEDS: POTASSIUM CHLORIDE 10 MEQ CAP PO SCH ×2 (09:34→19:55)
[2016-09-11] MEDS: CLOPIDOGREL 75 MG TAB PO SCH (09:34)
[2016-09-11] MEDS: ASPIRIN 81 MG CHEW TAB PO SCH (09:34)
[2016-09-11] MEDS ORDERED: DIGOXIN 0.5 MG/2 ML VIAL IVS STA (09:45)
--- NOTE | 2016-09-11 09:47 | PD.CARD.PN ---
Subjective Subjective Remarks Pt denies cp/sob; LLE painful but tolerable on his PCI Objective Medications Administered Medications Medications (Trade) Dose Ordered Sig/Huy Route PRN Reason Start Time Stop Time Status Last Admin Dose Admin Oxycodone/ Acetaminophen (Percocet 5-325 Mg) 1 tab Q4H PRN PO PAIN SCALE 3 TO 5 09/04/16 21:45 09/07/16 05:12 Oxycodone/ Acetaminophen (Percocet 10-325 Mg) 1 tab Q4H PRN PO PAIN SCALE 6 TO 10 09/04/16 21:45 09/10/16 09:06 Aspirin (Aspirin Chew) 81 mg DAILY PO 09/05/16 09:00 09/10/16 09:07 Clopidogrel Bisulfate (Plavix) 75 mg DAILY PO 09/05/16 09:00 09/10/16 09:07 Atorvastatin Calcium (Lipitor) 40 mg HS PO 09/05/16 21:00 09/10/16 20:18 Insulin Human Regular (NovoLIN R SUPPLEMENTAL SCALE) 1 ACHS SQ 09/07/16 16:00 09/10/16 11:00 Alprazolam (Xanax) 0.5 mg Q4H PRN PO ANXIETY 09/07/16 13:30 09/10/16 22:51 Furosemide (Lasix) 40 mg BID@09,18 PO 09/07/16 18:00 09/10/16 17:10 Potassium Chloride (KCl) 10 meq BID PO 09/07/16 21:00 09/10/16 20:17 Lisinopril 5 mg 5 mg DAILY PO 09/08/16 09:00 09/10/16 09:07 Heparin Sodium/ Dextrose (Heparin-D5W Inj) 250 ml @ 0 mls/hr TITRATE IV 09/08/16 18:30 09/11/16 00:38 Lactulose (Lactulose Liq) 30 ml BID PO 09/10/16 21:00 09/10/16 20:18 Hydromorphone HCl (Dilaudid Pf Inj) 1 mg Q2H PRN IV PUSH PAIN >5 09/10/16 14:00 09/10/16 13:54 GRADES 1 THROUGH 5 TEACHER Dosage Infused (Pha) 1 Q8HR .XX 09/10/16 22:00 09/11/16 06:00 Vital Signs / I&O Vital Signs Date Time Temp Pulse Resp B/P Pulse Ox O2 Delivery O2 Flow Rate FiO2 09/11/16 06:00 86 09/11/16 06:00 16 09/11/16 04:00 88 09/11/16 04:00 97.6 88 25 86/50 100 09/11/16 02:00 91 09/11/16 00:00 98.0 88 21 89/51 93 98/51 09/11/16 00:00 88 09/10/16 22:00 99 09/10/16 21:24 26 09/10/16 20:00 81 09/10/16 20:00 98.4 81 17 88/49 94 95/45 09/10/16 19:37 98 2.00 09/10/16 18:00 79 09/10/16 16:00 83 09/10/16 16:00 98.1 83 17 116/58 97 113/52 09/10/16 14:24 16 09/10/16 14:00 84 09/10/16 12:00 81 09/10/16 12:00 98.0 81 16 106/58 97 93/58 09/10/16 10:24 20 09/10/16 10:00 97 I/O 09/10/16 09/10/16 09/10/16 09/11/16 09/11/16 09/11/16 06:59 14:59 22:59 06:59 14:59 22:59 Intake Total 138 ml 817 ml 542 ml 2456 ml Output Total 500 ml 275 ml 225 ml 450 ml Balance -362 ml 542 ml 317 ml 2006 ml Intake Oral 0 ml 700 ml 240 ml 240 ml IV Total 138 ml 117 ml 302 ml 2216 ml Output Urine Total 500 ml 275 ml 225 ml 450 ml # Bowel Movements 0 0 2 3 Physical Exam GENERAL: This is a well-nourished, well-developed patient, in no apparent distress. CARDIOVASCULAR: Regular rate and rhythm without murmurs, gallops, or rubs. RESPIRATORY: Clear to auscultation. Breath sounds equal bilaterally. No wheezes , rales, or rhonchi. GASTROINTESTINAL: Abdomen soft, non-tender, nondistended. Normal active bowel sounds MUSCULOSKELETAL: Left foot mottled, cold, no pulse palpable, tender NEURO: Alert & Oriented x4 to person, place, time, situation. Moves all ext x4 Laboratory Laboratory Tests Test 7/15/17 7/15/17 7/16/17 7/16/17 12:40 18:00 01:12 05:25 Activated Partial 76.7 SEC 76.2 SEC 57.8 SEC Thromboplast Time White Blood Count 9.9 TH/MM3 Red Blood Count 2.64 MIL/MM3 Hemoglobin 8.8 GM/DL Hematocrit 25.5 % Mean Corpuscular Volume 96.6 FL Mean Corpuscular Hemoglobin 33.4 PG Mean Corpuscular Hemoglobin 34.6 % Concent Red Cell Distribution Width 14.7 % Platelet Count 135 TH/MM3 Mean Platelet Volume 8.7 FL Neutrophils (%) (Auto) 75.1 % Lymphocytes (%) (Auto) 8.7 % Monocytes (%) (Auto) 15.1 % Eosinophils (%) (Auto) 0.7 % Basophils (%) (Auto) 0.4 % Neutrophils # (Auto) 7.5 TH/MM3 Lymphocytes # (Auto) 0.9 TH/MM3 Monocytes # (Auto) 1.5 TH/MM3 Eosinophils # (Auto) 0.1 TH/MM3 Basophils # (Auto) 0.0 TH/MM3 CBC Comment DIFF FINAL Differential Comment Sodium Level 137 MEQ/L Potassium Level 3.9 MEQ/L Chloride Level 105 MEQ/L Carbon Dioxide Level 23.9 MEQ/L Anion Gap 8 MEQ/L Blood Urea Nitrogen 39 MG/DL Creatinine 1.01 MG/DL Estimat Glomerular Filtration 70 ML/MIN Rate Random Glucose 137 MG/DL Calcium Level 7.3 MG/DL Protein Corrected Calcium 8.6 MG/DL Total Protein 4.8 GM/DL Test 09/11/16 06:50 Activated Partial 46.8 SEC Thromboplast Time Imaging Last Impressions Aorta w/Runoff CTA 09/08/16 0000 Signed Impressions: Service Date/Time: August 16:35 - CONCLUSION: 1. Acute thrombus extending from left common femoral artery to the popliteal artery and below the knee vessels with basically no runoff to the left ankle. 2. Bilateral pleural effusions. 3. 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 Lidia Hager MD Chest X-Ray 09/07/16 0000 Signed Impressions: Service Date/Time: Wednesday, September 07, 2016 04:37 - CONCLUSION: Improved. Trace bibasilar atelectasis currently seen. Elias Cordero MD Lower Extremity Ultrasound 09/06/16 0000 Signed Impressions: Service Date/Time: Tuesday, September 06, 2016 21:43 - CONCLUSION: No DVT. Alistair Chaparro Jr., MD Assessment and Plan Problem List: (1) ST elevation [place] (STEMI) Assessment and Plan: STEMI s/p LAD stent balloon pump now removed. on asa/plavix/bb/statin systolic chf with EF 20-25% Pt is currently more compensated from his chf acute on chronic thrombosis/ischemic left leg Due to low bp's, decreased laura/arb dose (2) Atrial fibrillation, chronic Assessment and Plan: currently on heparin ggt, bp low so went down on lopressor ; rates were high yesterday on reduced meds so will add digoxin. (3) Ischemic leg Assessment and Plan: Left foot cold/mottled w/o pulses, apparently will need L AKA (4) Systolic CHF Assessment and Plan: compensated, actually might be slightly dry, held lasix today, wend to daily starting tomorrow and can be re-evaluated. Assessment and Plan Dr. Zaragoza will return tomorrow to resume care. Problem Qualifiers (1) ST elevation MN (STEMI): Qualified Code: I21.02 - ST elevation myocardial infarction involving left anterior descending (LAD) coronary artery Herman Scott MD Sep 11, 2016 09:47
[2016-09-11] MEDS: DIGOXIN 0.5 MG/2 ML VIAL IVS SCH ×2 (17:05→22:27)
[2016-09-11] MEDS: ATORVASTATIN 40 MG TAB PO SCH (19:56)
[2016-09-11] MEDS: HYDROmorphone HCL PF 1 MG/ML VIAL IV PUSH PRN (19:57)
[2016-09-12] VITALS (17 sets, daily range): BP systolic 95–153; BP diastolic 37–88; PULSE 69–93; RESP 18–30; TEMP 98–98.5; O2SAT 95–100
[2016-09-12] MEDS: PCA - TOTAL MG DILAUDID DELIVERED PER SHIFT SCH ×3 (06:00→20:13)
[2016-09-12 06:02] LABS: APTT (PATIENT) 48.4 SEC (24.3-30.1)
[2016-09-12] MEDS: INSULIN NovoLIN REGULAR SUPPLEMENTAL SCALE SQ SCH ×4 (06:36→20:11)
--- NOTE | 2016-09-12 07:46 | PD.VS.PN ---
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; still has profound L foot ischemia but no wounds surgical sites ok pt aware of need for major amputation and he is mentally ready no chest discomfort or SOB Objective Vitals/I&O Date Time Temp Pulse Resp B/P Pulse Ox O2 Delivery O2 Flow Rate FiO2 09/12/16 06:00 23 09/12/16 06:00 92 09/12/16 04:00 85 09/12/16 04:00 98.2 85 18 115/54 97 09/12/16 02:00 85 09/12/16 00:00 87 09/12/16 00:00 98.0 87 22 124/88 100 09/11/16 22:28 14 09/11/16 22:00 95 09/11/16 20:00 98.2 96 17 129/59 98 97/62 09/11/16 20:00 96 09/11/16 19:35 99 Nasal Cannula 2.00 09/11/16 18:00 90 09/11/16 16:00 93 09/11/16 16:00 98.2 93 6 114/57 100 89/69 09/11/16 14:00 90 09/11/16 14:00 18 09/11/16 12:00 85 09/11/16 12:00 97.8 85 18 96/54 100 108/88 09/11/16 10:00 93 09/11/16 08:00 98.0 95 22 109/54 98 96/88 09/11/16 08:00 95 09/12/16 09/12/16 09/12/16 06:59 14:59 22:59 Intake Total 224 ml Output Total 475 ml Balance -251 ml Physical Exam resting comfortably alert, oriented L foot and lower leg cold and immobile, starting to blister medial calf incisions ok Laboratory Laboratory Tests Test 09/12/16 05:39 Activated Partial 48.4 Thromboplast Time Assessment and Plan Plan 1. acute on chronic L LE ischemia 2. plan for L AKA tomorrow (Monday) Lauri Castellanos MD FACS RPVI principal database developer [facility] - Heart and Vascular Surgery at [facility] [address] [phone] Lauri Castellanos MD Sep 12, 2016 07:46
[2016-09-12] MEDS: LISINOPRIL 5 MG TAB PO SCH (09:00)
[2016-09-12] MEDS: LACTULOSE SYRUP 20 GM/30 ML CUP PO SCH ×2 (09:00→20:11)
[2016-09-12] MEDS ORDERED: FUROSEMIDE 40 MG TAB PO SCH (09:00)
[2016-09-12] MEDS: METOPROLOL TARTRATE 25 MG TAB PO SCH ×2 (09:00→20:11)
[2016-09-12] MEDS: ASPIRIN 81 MG CHEW TAB PO SCH (09:30)
[2016-09-12] MEDS: POTASSIUM CHLORIDE 10 MEQ CAP PO SCH ×2 (09:30→20:11)
[2016-09-12] MEDS: CLOPIDOGREL 75 MG TAB PO SCH (09:30)
[2016-09-12] MEDS: DIGOXIN 0.125 MG TAB PO SCH (09:31)
--- NOTE | 2016-09-12 11:03 | PD.VS.CON ---
History of Present Illness Chief Complaint: left leg without motor function from the knee down. Consult Requested by: History of Present Illness 86 yo male with CHF (EF 25-30% on 09/05), CAD and PAD who presented with AMI and 4-5 d ago had coronary stents and IABP, since removed. He had vascular surgery intervention to salvage the left lower extremity. Does have a h/o PAD interventions prior to this hospitalization. Past/Family/Social History Past Medical History PAST MEDICAL HISTORY 1. Coronary artery disease. 2. Ischemic cardiomyopathy with a previous ejection fraction of 20% by cardiac catheterization (August 25, 2016). 3. Atrial fibrillation on Coumadin therapy. 4. Arthritis. 5. Asthma. 6. Anxiety. 7. Hyperlipidemia. 8. TIA. 9. Hypertension. 10. History of myocardial infarction. PAST SURGICAL HISTORY 1. Cardiac catheterization (August 25, 2016) - Mild luminal irregularities, ejection fraction 20%. 2. The patient has a history of a stent previously believed to be in his RCA. 3. History of balloon angioplasty of bilateral femoral-popliteal arteries (2006). 4. Tonsillectomy 5. History wrist surgery. 6. Multiple nerve blocks for back pain. ALLERGIES PENICILLIN. MEDICATIONS 1. Coumadin 2.5/5 mg daily. 2. Xanax 0.5 mg every 4 hours as needed for anxiety. 3. Albuterol 2 puffs every 4-6 hours as needed for shortness of breath. 4. Lipitor 40 mg every night. 5. Lasix 40 mg b.i.d. 6. Potassium 10 mEq b.i.d. SOCIAL HISTORY The patient drinks wine seldomly. Denies tobacco or substance abuse. FAMILY HISTORY Denies premature coronary artery disease or sudden cardiac within the family. Home Medications Reported Medications Warfarin 5 Mg Tab5 Mg PO DAILY #30 TAB Ref 0 08/23/16 Warfarin 2.5 Mg Tab2.5 Mg PO DAILY #30 TAB Ref 0 08/23/16 Albuterol 18 GM Inh (Ventolin Hfa 18 GM Inh)90 Mcg/Act Aer2 Puff INH Q4-6H PRN ( SHORTNESS OF BREATH) #1 INHALER Ref 0 08/23/16 Potassium Chloride ER 10 Meq Cap10 Meq PO BID #60 CAP Ref 0 08/23/16 Furosemide 40 Mg Tab40 Mg PO BID #60 TAB Ref 0 08/23/16 Atorvastatin 40 Mg Tab40 Mg PO HS #30 TAB Ref 0 08/23/16 Alprazolam 0.5 Mg Tab0.5 Mg PO Q4H PRN (ANXIETY) Ref 0 08/23/16 Coded Allergies: Penicillin (Verified Allergy, Severe, EDEMA, HIVES, 05/19/15) Review of Systems Musculoskeletal: COMPLAINS OF: Joint pain, Muscle aches, Stiffness, Joint Swelling, Back pain, Neck pain Physical Exam Vitals/I&O Date Time Temp Pulse Resp B/P Pulse Ox O2 Delivery O2 Flow Rate FiO2 09/12/16 09:40 97 Nasal Cannula 2.00 09/12/16 06:00 23 09/12/16 06:00 92 09/12/16 04:00 85 09/12/16 04:00 98.2 85 18 115/54 97 09/12/16 02:00 85 09/12/16 00:00 87 09/12/16 00:00 98.0 87 22 124/88 100 09/11/16 22:28 14 09/11/16 22:00 95 09/11/16 20:00 98.2 96 17 129/59 98 97/62 09/11/16 20:00 96 09/11/16 19:35 99 Nasal Cannula 2.00 09/11/16 18:00 90 09/11/16 16:00 93 09/11/16 16:00 98.2 93 6 114/57 100 89/69 09/11/16 14:00 90 09/11/16 14:00 18 09/11/16 12:00 85 09/11/16 12:00 97.8 85 18 96/54 100 108/88 09/12/16 09/12/16 09/12/16 07:00 15:00 23:00 Intake Total 224 ml Output Total 475 ml Balance -251 ml Neuro: CN2-12 intact. HEENT: supple neck. Heart: irregular Lungs: No wheezing. Abdomen: soft Vascular: right femoral with palpable pulse left groin with vac dressing in place. Left foot cool without signals and no motor function. Laboratory Tests Test 09/12/16 05:39 Activated Partial 48.4 Thromboplast Time Assessment and Plan Plan 86 year old male with left lower extremity acute on chronic limb ischemia. Patient with heroic attempt at revascularization in patient with poor EF and substantial outflow and runoff disease. I agree without question the patient should have a left AKA especially to avoid systemic risk (possible rhabdomyolysis). Jose Armando Peres DO, Jose Armando Vasquez DO Sep 12, 2016 11:03
--- NOTE | 2016-09-12 11:30 | HHI.PR ---
Subjective Remarks No new complaints. Objective Vitals Vital Signs Date Time Temp Pulse Resp B/P Pulse Ox O2 Delivery O2 Flow Rate FiO2 09/12/16 09:40 97 Nasal Cannula 2.00 09/12/16 06:00 23 09/12/16 06:00 92 09/12/16 04:00 85 09/12/16 04:00 98.2 85 18 115/54 97 09/12/16 02:00 85 09/12/16 00:00 87 09/12/16 00:00 98.0 87 22 124/88 100 09/11/16 22:28 14 09/11/16 22:00 95 09/11/16 20:00 98.2 96 17 129/59 98 97/62 09/11/16 20:00 96 09/11/16 19:35 99 Nasal Cannula 2.00 09/11/16 18:00 90 09/11/16 16:00 93 09/11/16 16:00 98.2 93 6 114/57 100 89/69 09/11/16 14:00 90 09/11/16 14:00 18 09/11/16 12:00 85 09/11/16 12:00 97.8 85 18 96/54 100 108/88 09/11/16 09/11/16 09/12/16 14:59 22:59 06:59 Intake Total 496 ml 278 ml 224 ml Output Total 400 ml 525 ml 475 ml Balance 96 ml -247 ml -251 ml Intake Oral 350 ml 120 ml 0 ml IV Total 146 ml 158 ml 224 ml Output Urine Total 400 ml 525 ml 475 ml # Bowel Movements 0 0 1 Result Diagram: 09/11/16 0525 09/11/16 0525 Imaging Last Impressions Aorta w/Runoff CTA 09/08/16 0000 Signed Impressions: Service Date/Time: August 16:35 - CONCLUSION: 1. Acute thrombus extending from left common femoral artery to the popliteal artery and below the knee vessels with basically no runoff to the left ankle. 2. Bilateral pleural effusions. 3. 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 Lidia Hager MD Chest X-Ray 09/07/16 0000 Signed Impressions: Service Date/Time: Wednesday, September 07, 2016 04:37 - CONCLUSION: Improved. Trace bibasilar atelectasis currently seen. Elias Cordero MD Lower Extremity Ultrasound 09/06/16 0000 Signed Impressions: Service Date/Time: Tuesday, September 06, 2016 21:43 - CONCLUSION: No DVT. Alistair Chaparro Jr., MD Objective Remarks GENERAL: This is a well-nourished, well-developed patient, in no apparent distress. CARDIOVASCULAR: Regular rate and rhythm without murmurs, gallops, or rubs. RESPIRATORY: Clear to auscultation. Breath sounds equal bilaterally. No wheezes , rales, or rhonchi. GASTROINTESTINAL: Abdomen soft, non-tender, nondistended. Normal active bowel sounds MUSCULOSKELETAL: Extremities without clubbing, cyanosis, or edema. NEURO: Alert & Oriented x4 to person, place, time, situation. Moves all ext x4 EXT: LLE cold & NO palpable dorsalis pedis pulse. A/P Problem List: (1) ST elevation CT (STEMI) Status: Acute Plan: Pt with cad presented with cardiogenic shock STEMI s/p LAD stent balloon pump now removed. 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 Peres 09/13/16 (2) Ischemic leg Status: Acute Plan: see above (3) Systolic dysfunction with acute on chronic heart failure Status: Acute Plan: see above (4) Afib Status: Chronic (5) CAD (coronary artery disease) Status: Chronic (6) Depression Status: Chronic Problem Qualifiers (1) ST elevation CT (STEMI): Qualified Code: I21.02 - ST elevation myocardial infarction involving left anterior descending (LAD) coronary artery Phan Linda DO Sep 12, 2016 11:30
[2016-09-12] MEDS ORDERED: FUROSEMIDE 40 MG TAB PO ONE (15:15)
[2016-09-12] MEDS: HEPARIN-D5W INJ 250 ML IV SCH (17:34)
[2016-09-12] MEDS: ATORVASTATIN 40 MG TAB PO SCH (20:11)
[2016-09-13] VITALS (17 sets, daily range): BP systolic 118–137; BP diastolic 57–67; PULSE 75–98; RESP 13–34; TEMP 97.6–98.5; O2SAT 93–100
[2016-09-13] MEDS: ALPRAZolam 0.5 MG TAB PO PRN ×2 (00:36→04:23)
[2016-09-13 05:52] LABS: APTT (PATIENT) 30.1 SEC (24.3-30.1)
[2016-09-13] MEDS: PCA - TOTAL MG DILAUDID DELIVERED PER SHIFT SCH ×3 (06:30→22:00)
[2016-09-13] MEDS: INSULIN NovoLIN REGULAR SUPPLEMENTAL SCALE SQ SCH ×4 (06:30→21:00)
[2016-09-13] MEDS ORDERED: fentaNYL CITRATE 250 MCG/5 ML AMP ONE (08:24)
[2016-09-13] MEDS ORDERED: FAMOTIDINE 20 MG/2 ML VIAL ONE (08:24)
[2016-09-13] MEDS ORDERED: VASOPRESSIN INJ 20 UNITS/ML VIAL ONE (08:24)
[2016-09-13] MEDS ORDERED: ACETAMINOPHEN 1000 MG/100 ML VIAL IV ONE (08:24)
[2016-09-13] MEDS ORDERED: VANCOMYCIN HCL 1000 MG VIAL ONE (08:50)
[2016-09-13] MEDS: METOPROLOL TARTRATE 25 MG TAB PO SCH ×2 (09:00→21:21)
[2016-09-13] MEDS: ASPIRIN 81 MG CHEW TAB PO SCH (09:00)
[2016-09-13] MEDS: FUROSEMIDE 40 MG TAB PO SCH ×2 (09:00→17:15)
[2016-09-13] MEDS: POTASSIUM CHLORIDE 10 MEQ CAP PO SCH ×2 (09:00→21:20)
[2016-09-13] MEDS: CLOPIDOGREL 75 MG TAB PO SCH (09:00)
[2016-09-13] MEDS: LISINOPRIL 5 MG TAB PO SCH (09:00)
[2016-09-13] MEDS: LACTULOSE SYRUP 20 GM/30 ML CUP PO SCH ×2 (09:00→21:20)
[2016-09-13] MEDS: DIGOXIN 0.125 MG TAB PO SCH (09:00)
--- NOTE | 2016-09-13 09:57 | HHI.PR ---
cc: Luaks Rangel MD Immediate Post Op Note Procedure Date: Sep 13, 2016 Pre Op Diagnosis: acute on chronic L LE ischemia, motor dysfunction Post Op Diagnosis: acute on chronic L LE ischemia, motor dysfunction Surgeon: Lauri Castellanos Head Paper Tester(s): Humberto Mcguire Procedure: L AKA Findings: no arterial flow Minimal bleeding even at AKA level Complications: none Specimen(s) removed: LEFT LEG Estimated blood loss: 50mL Anesthesia: LMA Drains: None Fluids: 300mL IVF Patient to: PACU Patient Condition: Fair Date/Time of Procedure: SEE SURGICAL CARE RECORD Lauri Castellanos MD Sep 13, 2016 09:57
[2016-09-13] MEDS ORDERED: DO NOT ADM ANY ANTICOAGULANT DRUGS PRN (10:20)
[2016-09-13] MEDS ORDERED: ONDANSETRON HCL 4 MG/2 ML VIAL IV PUSH ONE (12:38)
[2016-09-13] MEDS ORDERED: PROPOFOL 200 MG/20 ML AMP IV ONE (12:38)
[2016-09-13] MEDS ORDERED: PHENYLEPH/NS 1000 MCG/10 ML SYR IV ONE (12:38)
[2016-09-13] MEDS ORDERED: ePHEDrine/NS 25 MG/5 ML SYR IV ONE (12:38)
--- NOTE | 2016-09-13 13:06 | MP ---
cc: SHANKAR CASTELLANOS MD DATE OF SURGERY 09/13/2016 PREOPERATIVE DIAGNOSIS Ischemic left lower extremity POSTOPERATIVE DIAGNOSIS Ischemic left lower extremity PROCEDURE Left above-knee amputation MEDICATIONS Shankar Castellanos MD IMMUNOLOGIST SURGEON Humberto Mcguire MD ANESTHESIA General INDICATIONS Mr. Horn is an 86-year gentleman who has a history of severe coronary artery disease and a myocardial infarction last week with new coronary stents placed. He also had a balloon pump and I was called emergently left Monday morning for a cold left leg. He had been found the day prior to have profound ischemia and the operative attempts at thromboendarterectomy was unsuccessful. It was found that he had acute and chronic disease. He was taken to the operating room for an amputation after the leg has been nonfunctional since the time I met him. Of note, two attending surgeons had seen the patient. Both agreed that he needed an above-knee amputation. DESCRIPTION OF THE PROCEDURE Informed consent was obtained. The patient was taken to the operating room and placed supine on the operating room table. Appropriate time-out was taken to ensure the patient's identity, the operative site and planned procedure. The administration of a gram of vancomycin was initiated prior to skin incision and will be discontinued after a single preoperative dose. Vancomycin was chosen because of the patient's penicillin allergy. His left leg was prepped and draped. An incision was made just above the knee, carried down through the subcutaneous tissue with electrocautery. The incision was a [place] medially and laterally and then we carried the incision down to the femur. The periosteum was elevated. The bone was transected. The posterior muscle was divided and the popliteal artery and vein were identified and clamped with hemostats and sharply transected. The posterior muscle and skin was divided and the specimen was passed off the table. The artery and vein were then suture ligated. The wound was then irrigated, made hemostatic and closed with 2-0 Polysorb and skin abiodun. The sponge and needle counts were correct at the end of the case. I was present and scrubbed for the entire procedure. MD MARIANO Lucio/WILD /11:43 AM /1:03 PM
--- NOTE | 2016-09-13 15:34 | HHI.PR ---
Subjective Remarks No new complaints. Pain is controlled. Objective Vitals Vital Signs Date Time Temp Pulse Resp B/P Pulse Ox O2 Delivery O2 Flow Rate FiO2 09/13/16 14:30 20 09/13/16 14:00 88 09/13/16 12:00 97.8 77 18 136/60 100 Arterial Line 09/13/16 12:00 77 09/13/16 11:00 84 23 99 09/13/16 10:45 98.1 83 20 132/60 99 Nasal Cannula 2 09/13/16 10:30 84 20 123/58 98 Nasal Cannula 2 09/13/16 10:20 98.1 82 20 99/50 96 Nasal Cannula 2 Arterial Line 09/13/16 07:10 97 Nasal Cannula 2.00 09/13/16 07:00 83 09/13/16 07:00 97.6 83 29 131/60 93 09/13/16 06:30 30 09/13/16 06:00 85 09/13/16 04:00 98.2 83 13 122/60 97 09/13/16 04:00 83 09/13/16 02:00 82 09/13/16 00:00 76 09/13/16 00:00 98.4 76 28 118/57 98 09/12/16 22:00 69 09/12/16 20:13 30 09/12/16 20:00 92 09/12/16 20:00 98.4 92 18 118/57 98 09/12/16 19:21 97 Nasal Cannula 2.00 09/12/16 18:00 91 09/12/16 17:00 88 30 140/61 98 153/57 09/12/16 16:00 84 09/12/16 16:00 98.5 84 19 133/62 99 142/52 09/12/16 09/12/16 09/13/16 15:00 23:00 07:00 Intake Total 1033 ml 367 ml 181 ml Output Total 800 ml 1625 ml 425 ml Balance 233 ml -1258 ml -244 ml Intake Oral 700 ml 240 ml 0 ml IV Total 333 ml 127 ml 181 ml Output Urine Total 800 ml 1625 ml 425 ml # Bowel Movements 0 0 0 Result Diagram: 09/11/16 0525 09/11/16 05 Imaging Last Impressions Aorta w/Runoff CTA 09/08/16 0000 Signed Impressions: Service Date/Time: August 16:35 - CONCLUSION: 1. Acute thrombus extending from left common femoral artery to the popliteal artery and below the knee vessels with basically no runoff to the left ankle. 2. Bilateral pleural effusions. 3. 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 Lidia Hager MD Chest X-Ray 09/07/16 0000 Signed Impressions: Service Date/Time: Wednesday, September 07, 2016 04:37 - CONCLUSION: Improved. Trace bibasilar atelectasis currently seen. Elias Cordero MD Lower Extremity Ultrasound 09/06/16 0000 Signed Impressions: Service Date/Time: Tuesday, September 06, 2016 21:43 - CONCLUSION: No DVT. Alistair Chaparro Jr., MD Objective Remarks GENERAL: This is a well-nourished, well-developed patient, in no apparent distress. CARDIOVASCULAR: Regular rate and rhythm without murmurs, gallops, or rubs. RESPIRATORY: Clear to auscultation. Breath sounds equal bilaterally. No wheezes , rales, or rhonchi. GASTROINTESTINAL: Abdomen soft, non-tender, nondistended. Normal active bowel sounds MUSCULOSKELETAL: Extremities without clubbing, cyanosis, or edema. NEURO: Alert & Oriented x4 to person, place, time, situation. 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 probably acute blood losses, repeat CBC in AM - currently on laura/bb/asa/plavix/statin - lasix/kcl - laxatives - PT - supportive care (3) Systolic dysfunction with acute on chronic heart failure Status: Acute Plan: see above (4) Afib Status: Chronic Plan: - see above (5) CAD (coronary artery disease) Status: Chronic Plan: - see above (6) Depression Status: Chronic Problem Qualifiers (1) ST elevation [place] (STEMI): Qualified Code: I21.02 - ST elevation myocardial infarction involving left anterior descending (LAD) coronary artery Phan Linda DO Sep 13, 2016 15:34
[2016-09-13] MEDS: ATORVASTATIN 40 MG TAB PO SCH (21:20)
[2016-09-14] VITALS (13 sets, daily range): BP systolic 110–137; BP diastolic 50–70; PULSE 75–96; RESP 18–22; TEMP 97.4–98.7; O2SAT 90–96
[2016-09-14 04:24] LABS: HEMATOCRIT 29.1 % (39.0-51.0); MEAN CELL VOLUME 97.4 FL (80.0-100.0); MEAN CORPUSCULAR HEMOGLOBIN 32.1 PG (27.0-34.0); PLATELET COUNT 205 TH/MM3 (150-450); RED BLOOD COUNT 2.99 MIL/MM3 (4.50-5.90); RED CELL DISTRIBUTION WIDTH 14.5 % (11.6-17.2); REVIEW FLAG FINAL
[2016-09-14] MEDS: PCA - TOTAL MG DILAUDID DELIVERED PER SHIFT SCH ×3 (06:00→22:00)
[2016-09-14] MEDS: INSULIN NovoLIN REGULAR SUPPLEMENTAL SCALE SQ SCH ×4 (06:32→21:00)
--- NOTE | 2016-09-14 06:46 | PD.VS.PN ---
Subjective POD #: 1 Procedure(s): L AKA Subjective/Hospital Course in great spirits this morning no pain No SOB Objective Vitals/I&O Date Time Temp Pulse Resp B/P Pulse Ox O2 Delivery O2 Flow Rate FiO2 09/14/16 06:00 77 09/14/16 04:00 98.7 87 22 114/63 95 09/14/16 04:00 87 09/14/16 02:00 82 09/14/16 00:00 98.6 86 22 137/70 90 09/14/16 00:00 80 09/13/16 23:18 95 Nasal Cannula 21 09/13/16 22:00 92 09/13/16 22:00 23 09/13/16 20:33 96 09/13/16 20:00 98.5 98 26 137/65 95 09/13/16 20:00 76 09/13/16 18:00 91 09/13/16 16:00 75 09/13/16 16:00 97.7 75 24 132/61 95 09/13/16 15:00 88 34 137/67 97 09/13/16 14:30 20 09/13/16 14:00 88 09/13/16 14:00 88 20 135/62 98 09/13/16 13:00 75 17 130/62 100 09/13/16 12:00 97.8 77 18 136/60 100 Arterial Line 09/13/16 12:00 77 09/13/16 11:00 84 23 99 09/13/16 10:45 98.1 83 20 132/60 99 Nasal Cannula 2 09/13/16 10:30 84 20 123/58 98 Nasal Cannula 2 09/13/16 10:20 98.1 82 20 99/50 96 Nasal Cannula 2 Arterial Line 09/13/16 07:10 97 Nasal Cannula 2.00 09/13/16 07:00 83 09/13/16 07:00 97.6 83 29 131/60 93 09/14/16 09/14/16 09/14/16 07:00 15:00 23:00 Intake Total 40 ml Output Total 325 ml Balance -285 ml Exam: Resting comfortably L AKA surgical dressing intact L groin skin VAC in place with persistent groin ecchymoses but no hematoma Laboratory Laboratory Tests Test 09/14/16 04:05 White Blood Count 13.0 Red Blood Count 2.99 Hemoglobin 9.6 Hematocrit 29.1 Mean Corpuscular Volume 97.4 Mean Corpuscular Hemoglobin 32.1 Mean Corpuscular Hemoglobin 33.0 Concent Red Cell Distribution Width 14.5 Platelet Count 205 Mean Platelet Volume 8.1 Assessment and Plan Plan s/p L AKA pain controlled 1. Dressing on until Monday 2. OOB and start working with PT 3. D/C skin VAC tomorrow Lauri Castellanos MD Sep 14, 2016 06:46
[2016-09-14] MEDS: LACTULOSE SYRUP 20 GM/30 ML CUP PO SCH ×2 (08:21→20:57)
[2016-09-14] MEDS: DIGOXIN 0.125 MG TAB PO SCH (08:22)
[2016-09-14] MEDS: POTASSIUM CHLORIDE 10 MEQ CAP PO SCH ×2 (08:22→20:58)
[2016-09-14] MEDS: CLOPIDOGREL 75 MG TAB PO SCH (08:22)
[2016-09-14] MEDS: ASPIRIN 81 MG CHEW TAB PO SCH (08:22)
[2016-09-14] MEDS: FUROSEMIDE 40 MG TAB PO SCH ×2 (08:22→17:26)
[2016-09-14] MEDS: METOPROLOL TARTRATE 25 MG TAB PO SCH ×2 (08:22→20:57)
[2016-09-14] MEDS: LISINOPRIL 5 MG TAB PO SCH (08:22)
--- NOTE | 2016-09-14 10:09 | HHI.PR ---
Subjective Remarks Some confusion. Pain is controlled. Objective Vitals Vital Signs Date Time Temp Pulse Resp B/P Pulse Ox O2 Delivery O2 Flow Rate FiO2 09/14/16 08:59 92 09/14/16 06:00 77 09/14/16 04:00 98.7 87 22 114/63 95 09/14/16 04:00 87 09/14/16 02:00 82 09/14/16 00:00 98.6 86 22 137/70 90 09/14/16 00:00 80 09/13/16 23:18 95 Nasal Cannula 21 09/13/16 22:00 92 09/13/16 22:00 23 09/13/16 20:33 96 09/13/16 20:00 98.5 98 26 137/65 95 09/13/16 20:00 76 09/13/16 18:00 91 09/13/16 16:00 75 09/13/16 16:00 97.7 75 24 132/61 95 09/13/16 15:00 88 34 137/67 97 09/13/16 14:30 20 09/13/16 14:00 88 09/13/16 14:00 88 20 135/62 98 09/13/16 13:00 75 17 130/62 100 09/13/16 12:00 97.8 77 18 136/60 100 Arterial Line 09/13/16 12:00 77 09/13/16 11:00 84 23 99 09/13/16 10:45 98.1 83 20 132/60 99 Nasal Cannula 2 09/13/16 10:30 84 20 123/58 98 Nasal Cannula 2 09/13/16 10:20 98.1 82 20 99/50 96 Nasal Cannula 2 Arterial Line 09/13/16 09/13/16 09/14/16 15:00 23:00 07:00 Intake Total 368 ml 720 ml 40 ml Output Total 375 ml 500 ml 325 ml Balance -7 ml 220 ml -285 ml Intake Oral 0 ml 720 ml IV Total 68 ml 40 ml Other 300 ml Output Urine Total 325 ml 500 ml 325 ml Estimated Blood Loss 50 ml # Bowel Movements 0 Result Diagram: 09/14/16 0405 09/11/16 0525 Imaging Last Impressions Aorta w/Runoff CTA 09/08/16 0000 Signed Impressions: Service Date/Time: August 16:35 - CONCLUSION: 1. Acute thrombus extending from left common femoral artery to the popliteal artery and below the knee vessels with basically no runoff to the left ankle. 2. Bilateral pleural effusions. 3. 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 Lidia Hager MD Chest X-Ray 09/07/16 0000 Signed Impressions: Service Date/Time: Wednesday, September 07, 2016 04:37 - CONCLUSION: Improved. Trace bibasilar atelectasis currently seen. Elias Cordero MD Lower Extremity Ultrasound 09/06/16 0000 Signed Impressions: Service Date/Time: Tuesday, September 06, 2016 21:43 - CONCLUSION: No DVT. Alistair Chaparro Jr., MD Objective Remarks GENERAL: This is a well-nourished, well-developed patient, in no apparent distress. CARDIOVASCULAR: Regular rate and rhythm without murmurs, gallops, or rubs. RESPIRATORY: Clear to auscultation. Breath sounds equal bilaterally. No wheezes , rales, or rhonchi. GASTROINTESTINAL: Abdomen soft, non-tender, nondistended. Normal active bowel sounds MUSCULOSKELETAL: Extremities without clubbing, cyanosis, or edema. NEURO: A&Ox2, but confused at times. 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 probably acute blood losses, repeat CBC in AM - currently on laura/bb/asa/plavix/statin - lasix/kcl - laxatives - PT - supportive care (3) Systolic dysfunction with acute on chronic heart failure Status: Acute Plan: see above (4) Afib Status: Chronic Plan: - see above (5) CAD (coronary artery disease) Status: Chronic Plan: - see above (6) Depression Status: Chronic Problem Qualifiers (1) ST elevation [place] (STEMI): Qualified Code: I21.02 - ST elevation myocardial infarction involving left anterior descending (LAD) coronary artery Phan Linda DO Sep 14, 2016 10:09
[2016-09-14] MEDS: ENOXAPARIN SODIUM 30 MG/0.3 ML SYRINGE SQ SCH (13:33)
[2016-09-14] MEDS: ATORVASTATIN 40 MG TAB PO SCH (20:57)
[2016-09-14] MEDS: ALPRAZolam 0.5 MG TAB PO PRN (20:58)
[2016-09-15] VITALS (8 sets, daily range): BP systolic 101–124; BP diastolic 48–89; PULSE 61–86; RESP 18–20; TEMP 97.3–98.6; O2SAT 92–100
[2016-09-15] MEDS: PCA - TOTAL MG DILAUDID DELIVERED PER SHIFT SCH ×3 (06:00→22:00)
[2016-09-15 06:14] LABS: AUTOMATED NEUTROPHIL # 8.5 TH/MM3 (1.8-7.7); BASOPHIL # 0.1 TH/MM3 (0-0.2); BASOPHIL % 0.6 % (0.0-2.0); EOSINOPHIL # 0.1 TH/MM3 (0-0.4); EOSINOPHIL % 1.2 % (0.0-4.0); HEMATOCRIT 26.9 % (39.0-51.0); HEMO FLAGS DIFF FINAL; LYMPH % 14.1 % (9.0-44.0); LYMPHOCYTE # 1.7 TH/MM3 (1.0-4.8); MEAN CELL VOLUME 95.1 FL (80.0-100.0); MEAN CORPUSCULAR HGB CONC 34.7 % (32.0-36.0); MONO % 12.5 % (0.0-8.0); NEUT % 71.6 % (16.0-70.0); PLATELET COUNT 186 TH/MM3 (150-450); RED BLOOD COUNT 2.83 MIL/MM3 (4.50-5.90); RED CELL DISTRIBUTION WIDTH 14.3 % (11.6-17.2); WHITE BLOOD COUNT 11.8 TH/MM3 (4.0-11.0)
[2016-09-15 06:39] LABS: BICARBONATE 26.7 MEQ/L (21.0-32.0); MAGNESIUM 2.1 MG/DL (1.5-2.5); POTASSIUM 4.1 MEQ/L (3.5-5.1)
[2016-09-15] MEDS: INSULIN NovoLIN REGULAR SUPPLEMENTAL SCALE SQ SCH ×4 (07:00→21:00)
[2016-09-15] MEDS: POTASSIUM CHLORIDE 10 MEQ CAP PO SCH ×2 (09:14→22:13)
[2016-09-15] MEDS: FUROSEMIDE 40 MG TAB PO SCH ×2 (09:14→18:45)
[2016-09-15] MEDS: ASPIRIN 81 MG CHEW TAB PO SCH (09:14)
[2016-09-15] MEDS: LISINOPRIL 5 MG TAB PO SCH (09:15)
[2016-09-15] MEDS: METOPROLOL TARTRATE 25 MG TAB PO SCH ×2 (09:15→22:13)
[2016-09-15] MEDS: CLOPIDOGREL 75 MG TAB PO SCH (09:15)
[2016-09-15] MEDS: DIGOXIN 0.125 MG TAB PO SCH (09:15)
[2016-09-15] MEDS: LACTULOSE SYRUP 20 GM/30 ML CUP PO SCH ×2 (09:15→22:13)
[2016-09-15] MEDS: ENOXAPARIN SODIUM 30 MG/0.3 ML SYRINGE SQ SCH (12:49)
[2016-09-15] MEDS: NITROGLYCERIN 2% OINT 1 GM PACKET TOP SCH ×2 (12:50→18:45)
--- NOTE | 2016-09-15 12:55 | HHI.PR ---
Subjective Remarks Pt had episode of chest pain and diaphoresis this morning, hallicat was called. Pt started on NTG paste. Pt c/o diarrhea. Objective Vitals Vital Signs Date Time Temp Pulse Resp B/P Pulse Ox O2 Delivery O2 Flow Rate FiO2 09/15/16 08:00 97.7 66 20 101/51 92 09/15/16 03:33 21 09/15/16 03:15 98.6 74 18 116/56 99 09/14/16 23:30 98.6 75 18 110/50 94 09/14/16 22:00 18 09/14/16 20:07 79 09/14/16 19:30 98.3 81 20 131/63 96 09/14/16 16:00 97.9 79 18 110/53 93 09/14/16 15:21 86 09/14/16 15:00 97.4 96 20 121/61 96 09/14/16 09/14/16 09/15/16 15:00 23:00 07:00 Intake Total 745 ml 240 ml 192 ml Output Total 750 ml 1425 ml 375 ml Balance -5 ml -1185 ml -183 ml Intake Oral 620 ml 240 ml 120 ml IV Total 125 ml 72 ml Output Urine Total 750 ml 1425 ml 375 ml Result Diagram: 09/15/16 0418 09/15/16 0418 Imaging Last Impressions Aorta w/Runoff CTA 09/08/16 0000 Signed Impressions: Service Date/Time: August 16:35 - CONCLUSION: 1. Acute thrombus extending from left common femoral artery to the popliteal artery and below the knee vessels with basically no runoff to the left ankle. 2. Bilateral pleural effusions. 3. 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 Lidia Hager MD Chest X-Ray 09/07/16 0000 Signed Impressions: Service Date/Time: Wednesday, September 07, 2016 04:37 - CONCLUSION: Improved. Trace bibasilar atelectasis currently seen. Elias Cordero MD Lower Extremity Ultrasound 09/06/16 0000 Signed Impressions: Service Date/Time: Tuesday, September 06, 2016 21:43 - CONCLUSION: No DVT. Alistair Chaparro Jr., MD Objective Remarks GENERAL: This is a well-nourished, well-developed patient, in no apparent distress. CARDIOVASCULAR: Regular rate and rhythm without murmurs, gallops, or rubs. RESPIRATORY: Clear to auscultation. Breath sounds equal bilaterally. No wheezes , rales, or rhonchi. GASTROINTESTINAL: Abdomen soft, non-tender, nondistended. Normal active bowel sounds MUSCULOSKELETAL: Extremities without clubbing, cyanosis, or edema. NEURO: A&Ox2, but confused at times. Moves all ext x4 EXT: left stump bandaged A/P Problem List: (1) Diarrhea Status: Acute Plan: - obtain C.Dif PCR - obtain stool studies - observe (2) Chest pain Status: Acute Plan: - case d/w Dr. Zaragoza (09/15/16) - NTG paste added to current regimen - will obtain serial cardiac enzymes - will obtain serial EKGs - currently on laura/bb/asa/plavix/statin - obtain Palliative Consult for clarification of goals (3) ST elevation [place] (STEMI) Status: Acute Plan: - Pt with cad presented with cardiogenic shock - STEMI s/p LAD stent - balloon pump now removed. 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 probably acute blood losses, repeat CBC in AM - currently on laura/bb/asa/plavix/statin - lasix/kcl - laxatives - PT - supportive care (4) Ischemic leg Status: Acute Plan: s/p on 09/09: pop/TPT endarterectomy and patch angioplasty RN PRIMARY CARE endarterectomy and patch angioplasty L LE angiogram Embolectomy of popliteal artery embolectomy of peroneal artery - left AKA performed by Dr. 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
[2016-09-15] MEDS ORDERED: NS + KCL 20 MEQ INJ 1,000 ML IV SCH (13:00)
--- NOTE | 2016-09-15 14:29 | PD.CONS ---
Consult Service Palliative Care . Consult Requested By Dr. Linda . Primary Care Physician Javier Blackburn MD . Reason for Consultation a. To assist with evaluation and management of symptoms including: pain; dyspnea, depression b. To assist medical decision maker(s) with: better understanding of current medical conditions; weighing benefits/burdens of medical treatment options; making medical treatment decisions. . HPI History of Present Illness Mr. Horn is an 86-year-old male with a known past history of coronary artery disease status post myocardial infarction and coronary artery stenting 2; chronic systolic heart failure with an ejection fraction of 20-35%; atrial fibrillation on chronic warfarin anticoagulation; hypertension; TIAs; and tobacco abuse; who presented to [facility] Emergency Department [facility] on 09/04/16 complaining of pressure/crushing type chest pain primarily in the substernal region and radiating to his right chest. It was associated with shortness of breath. Initial electrocardiogram was concerning for myocardial infarction and a STEMI alert was called. The patient was taken on an emergent basis to the coronary catheter lab and underwent bare metal stenting to the left anterior descending artery. Ejection fraction was noted to be 20%. The patient became hypotensive with blood pressure falling to less than 60/40 following the procedure. He received 1 mg of intravenous epinephrine and a couple of chest compressions following which he awakened and was able to communicate. The patient appeared to be perfusing poorly and an intra-aortic balloon pump was placed.. O2 saturation's improved to the mid 90s. The patient was transferred to the intensive care unit. The patient stabilized rather rapidly in the intensive care unit. He had 3 runs of nonsustained ventricular tachycardia during that first night but he was asymptomatic. The balloon pump was discontinued on 09/05/16. On 09/08/16 the patient developed acute limb threatening ischemia involving the left foot. He was brought on an emergent basis to interventional radiology for thrombus lysis. The patient however was confused and unable to give consent and the radiology team did not have contact information for appropriate health care decision-maker. It was also felt that the patient's recent angiogram served as a contraindication for catheter directed thrombo-lysis. Vascular surgery was then consulted. The patient underwent the following procedure on : 1. BK pop/TPT endarterectomy and patch angioplasty 2. GR[employer] DEAN endarterectomy and patch angioplasty 3. L LE angiogram 4. Embolectomy of popliteal artery 5. embolectomy of peroneal artery Postprocedure the patient continued to have circulatory problems. The left foot was cool and ultimately had no motor function. A left AKA was recommended and was performed on 09/13/16. The patient tolerated the procedure well. He has had some postoperative confusion. On the morning of 09/15/16 the patient complained of chest pain and diaphoresis. A Halicat was called. The patient was started on nitroglycerin paste. Patient has been c/o pain in the bilateral groin area described as aching/sharp/ sore and constant. He rates it as #4 or #5. He also c/o intermittent pain in the left leg described as sharp. He has been able to ambulate in his room with 1 person assist. Pain is being managed with hydromorphone COMPLIANCE DIRECTOR pump. At time of my visit, patient is awake, alert, conversational. He admits that it has been hard to keep his spirits up through this and that he has been feeling depressed. He has a long history of diarrhea with episodes of fecal incontinence even at home. It is happening here in the hospital and he is embarrassed that the CNAs have to clean him up. . . Function/Cognitive Trajectory Patient reports that he lives independently. His friend/cargo vessel stewardess Fabi Pickett comes in and cleans his home every 3 weeks. Mr. Horn has been on SSI/ disability for his back since age 51. He normally uses a walker and an electric wheelchair. He uses the walker and wheelchair primarily because of his back pain but to a lesser extent it was because of ischemic type pain in his legs, left worse than right. The patient has been taking care of all of his own ADLs. He had been getting out of the house, driving, doing his own grocery shopping, fixing his own meals. . Review of Systems Constitutional: COMPLAINS OF: Diaphoretic episodes, Fatigue, Dizziness (the more work as a ago he is is just okay ), Pain, Generalized weakness, DENIES: Fever, Weight gain, Weight loss, Chills , Change in appetite Endocrine: DENIES: Polydipsia, Polyuria Eyes: COMPLAINS OF: Vision loss Ears, nose, mouth, throat: DENIES: Tinnitus, Hearing loss, Vertigo, Oral lesions Respiratory: COMPLAINS OF: Cough, Snoring, Wheezing, Sputum production, Shortness of breath, DENIES: Apneas, Hemoptysis Cardiovascular: COMPLAINS OF: Chest pain, Palpitations, Dyspnea on Exertion, Lower Extremity Edema, DENIES: Syncope, Orthopnea, Claudication Gastrointestinal: COMPLAINS OF: Bloody stools, Diarrhea, Dyspepsia or heartburn , DENIES: Abdominal pain, Constipation, Nausea, Vomiting, Difficulty Swallowing , Anorexia, Bloating, Vomiting blood Genitourinary: COMPLAINS OF: Urinary frequency, Dysuria, Nocturia, DENIES: Hematuria Musculoskeletal: COMPLAINS OF: Joint pain, Muscle aches, Back pain (Chronic), Neck pain Integumentary: DENIES: Pruritus, Tumors, Excessive dryness, Non-healing sores Hematologic/Lymphatics: COMPLAINS OF: Bruising, DENIES: Prolonged bleed w/ proced Neurologic: COMPLAINS OF: Headache, Paresthesias, DENIES: Seizures, Speech Problems, Tremor Psychiatric: COMPLAINS OF: Anxiety, Confusion, Depression, DENIES: Agitation, Suicidal Ideation, Homicidal Ideation, Anhedonia Other ROS: * Total upper and lower dentures Past Family Social History Coded Allergies: Penicillin (Verified Allergy, Severe, EDEMA, HIVES, 05/19/15) Past Medical History Atrial fibrillation Coronary artery disease with prior stents Hyperlipidemia Hypertension Chronic systolic heart failure Asthma TIA Anxiety Tobacco abuse . 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 Reported Medications Prehospital medications at time of admission included the following: Warfarin 7.5 mg po daily Xanax 0.5 mill grams by mouth every 4 hours when necessary anxiety Albuterol 2 puffs inhaled every 4-6 hours as needed for shortness of breath Atorvastatin 40 mg by mouth daily at bedtime Lasix 40 mEq by mouth twice a day Potassium chloride 10 mEq by mouth twice a day . Current Medications Medications (Trade) Dose Ordered Sig/Huy Route Start Time Stop Time Status Last Admin (Tylenol) 325 mg Q4H PRN PO 09/04/16 21:45 (Percocet 5-325 Mg) 1 tab Q4H PRN PO 09/04/16 21:45 09/07/16 05:12 (Percocet 10-325 Mg) 1 tab Q4H PRN PO 09/04/16 21:45 09/10/16 09:06 (Aspirin Chew) 81 mg DAILY PO 09/05/16 09:00 09/15/16 09:14 (Plavix) 75 mg DAILY PO 09/05/16 09:00 09/15/16 09:15 (Ventolin Hfa Inh) 2 puff Q4HR PRN INH 09/04/16 22:00 (Lipitor) 40 mg HS PO 09/05/16 21:00 09/14/16 20:57 Miscellaneous Information Patient in critical care unit? Ass... Q361D .XX 09/04/16 22:30 (D50w (Vial) Inj) 50 ml UNSCH PRN IV 09/05/16 08:30 (Glucagon Inj) 1 mg UNSCH PRN OTHER 09/05/16 08:30 (NovoLIN R SUPPLEMENTAL SCALE) 1 ACHS SQ 09/07/16 16:00 09/13/16 21:00 (Xanax) 0.5 mg Q4H PRN PO 09/07/16 13:30 09/14/16 20:58 (KCl) 10 meq BID PO 09/07/16 21:00 09/15/16 09:14 (Pill Splitter) 1 ea UNSCH PRN OTHER 09/07/16 14:30 (Nitrostat Sl) 0.4 mg Q5M PRN SL 09/07/16 16:15 (Lactulose Liq) 30 ml BID PO 09/10/16 21:00 09/15/16 09:15 (Dilaudid Pf Inj) 1 mg Q2H PRN IV PUSH 09/10/16 14:00 09/11/16 19:57 (Dilaudid COMPLIANCE DIRECTOR Inj) 6 mg UNSCH IV 09/10/16 14:45 09/15/16 13:33 COMPLIANCE DIRECTOR Dosage Infused (Pha) 1 Q8HR .XX 09/10/16 22:00 09/15/16 13:34 (Narcan Inj) 0.4 mg UNSCH PRN IV 09/10/16 14:45 (Prinivil) 2.5 mg DAILY PO 09/12/16 09:00 09/15/16 09:15 (Lopressor) 12.5 mg Q12HR PO 09/11/16 21:00 09/15/16 09:15 (Lanoxin) 0.125 mg DAILY PO 09/12/16 09:00 09/15/16 09:15 (Lasix) 40 mg BID@,18 PO 09/13/16 09:00 09/15/16 09:14 (Lovenox Inj) 30 mg Q24H SQ 09/14/16 13:00 09/15/16 12:49 (Nitroglycerin 2% Oint) 1 inch Q6HR TOP 09/15/16 12:00 09/15/16 12:50 Family History Neither of his parents had heart disease Mother in her late 70s or early 80s from cancer of unknown type Father committed suicide by carbon monoxide poisoning . Substance Use Tobacco: Patient was a cigarette smoker from age [age] Alcohol: Occasional wine consumption. No history of abuse. Prescription med abuse: No known abuse of prescription drugs. Illicits: No known use of illicits. . Psychosocial History Originally from [facility] [place] Grew up on a farm. His father lost his right leg in a farming accident when the patient was 4 y/o. College educated at [employer]. 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 twice. from the first and has been estranged from the children of that marriage (no contact). 2nd time for 54 years. 2nd of cervical cancer about 5 years ago. She brought 4 of her own sons into the marriage. Patient is particularly close to alireza -- Erik. Fabi Pickett, his designated health care surrogate, is a woman who cleans his house every 3 weeks. . . Spiritual/Cultural Factors Raised Rastafari and attended parochial schools. Zoroastrianism and spirituality have not played a very important role in his life recently. He tells me a success coach visits him and provided spiritual support. Declines offer of account coordinator or hospital stockroom supervisor. . Living Will: Copy in medical record Health Care Surrogate: Copy in medical record Durable Power of Signals Collector/Analyst: Never completed Date completed: Living will and designation of health care surrogate in EMR dated 08/23/16. . Health Care Surrogate(s): Designated health care surrogate is Fabi Pickett (friend) . Documented care wishes: Living will indicates he would not want life prolonging measures if he were found to be in a persistent vegetative state. The living will has not checked the boxed for terminal condition or end-stage condition. . Today's verbally stated goals: We discussed resuscitation status and patient is clear that he would not want shock, chest compressions, or intubation/mechanical ventilation going forward. He does want other aggressive care for now and hopes to improve and rehab and get home again. . Family/friends goals: No family / friends present. . Ethical and Legal Issues Patient is capacitated to make his own health care decisions. . Physical Exam Vital Signs Date Time Temp Pulse Resp B/P Pulse Ox O2 Delivery O2 Flow Rate FiO2 09/15/16 13:34 20 09/15/16 08:00 97.7 66 20 101/51 92 09/15/16 03:33 21 09/15/16 03:15 98.6 74 18 116/56 99 09/14/16 23:30 98.6 75 18 110/50 94 09/14/16 22:00 18 09/14/16 20:07 79 09/14/16 19:30 98.3 81 20 131/63 96 09/14/16 16:00 97.9 79 18 110/53 93 09/14/16 15:21 86 09/14/16 15:00 97.4 96 20 121/61 96 . 09/14/16 09/15/16 19:00 07:00 Intake Total 745 ml 432 ml Output Total 750 ml 1800 ml Balance -5 ml -1368 ml Intake Oral 620 ml 360 ml IV Total 125 ml 72 ml Output Urine Total 750 ml 1800 ml . Exam CONSTITUTIONAL/GENERAL: This is an adequately nourished patient in a general medical bed. Occasional wincing as he re-positions himself, otherwise no apparent distress. Looks younger than his stated age. TUBES/LINES/DRAINS: Peripheral IV; [place]; NC 02 SKIN: No jaundice, rashes, or lesions. Ecchymoses on upper extremities. No wounds seen anteriorly. Dressing over LLE stump has small amoun of blood -- wound not examined. Skin temperature appropriate. Not diaphoretic. HEAD: Atraumatic. Normocephalic. EYES: Pupils equal and round and reactive. Extraocular motions intact. No scleral icterus. No injection or drainage. Fundi not examined. ENT: Hearing grossly normal. Nose without bleeding or purulent drainage. Throat without visible erythema, exudates, masses, or lesions. NECK: Trachea midline. Supple, nontender. No palpable thyroid enlargement or nodularity. CARDIOVASCULAR: Regular rate and rhythm without murmurs, gallops, or rubs. No JVD. RESPIRATORY/CHEST: Symmetric, unlabored respirations. Clear to auscultation. Breath sounds equal bilaterally. No wheezes, rales, or rhonchi. GASTROINTESTINAL: Abdomen soft, non-tender, nondistended. No hepato-splenomegaly , or palpable masses. No guarding. Bowel sounds present. GENITOURINARY: Without palpable bladder distension. MUSCULOSKELETAL: LLE AKA. Extremities otherwise without clubbing, cyanosis, or edema. No joint tenderness or effusion noted. No calf tenderness. No mottling . LYMPHATICS: No palpable cervical or supraclavicular adenopathy. NEUROLOGICAL: Awake and alert. Motor and sensory grossly within normal limits. Follows commands. Cognitively sharp. Moves all extremities. PSYCHIATRIC: No obvious anxiety. Admits to feeling depressed. No apparent hallucinations or other psychotic thought process. . Diagnostic Tests Laboratory Laboratory Tests Test 09/13/16 09/14/16 09/15/16 09/15/16 04:30 04:05 04:18 13:02 Activated Partial 30.1 SEC Thromboplast Time (24.3-30.1) Blood Type O POSITIVE Antibody Screen NEGATIVE White Blood Count 13.0 TH/MM3 11.8 TH/MM3 (4.0-11.0) (4.0-11.0) Red Blood Count 2.99 MIL/MM3 2.83 MIL/MM3 (4.50-5.90) (4.50-5.90) Hemoglobin 9.6 GM/DL 9.3 GM/DL (13.0-17.0) (13.0-17.0) Hematocrit 29.1 % 26.9 % (39.0-51.0) (39.0-51.0) Mean Corpuscular Volume 97.4 FL 95.1 FL (80.0-100.0) (80.0-100.0) Mean Corpuscular Hemoglobin 32.1 PG 33.0 PG (27.0-34.0) (27.0-34.0) Mean Corpuscular Hemoglobin 33.0 % 34.7 % Concent (32.0-36.0) (32.0-36.0) Red Cell Distribution Width 14.5 % 14.3 % (11.6-17.2) (11.6-17.2) Platelet Count 205 TH/MM3 186 TH/MM3 (150-450) (150-450) Mean Platelet Volume 8.1 FL 8.4 FL (7.0-11.0) (7.0-11.0) Neutrophils (%) (Auto) 71.6 % (16.0-70.0) Lymphocytes (%) (Auto) 14.1 % (9.0-44.0) Monocytes (%) (Auto) 12.5 % (0.0-8.0) Eosinophils (%) (Auto) 1.2 % (0.0-4.0) Basophils (%) (Auto) 0.6 % (0.0-2.0) Neutrophils # (Auto) 8.5 TH/MM3 (1.8-7.7) Lymphocytes # (Auto) 1.7 TH/MM3 (1.0-4.8) Monocytes # (Auto) 1.5 TH/MM3 (0-0.9) Eosinophils # (Auto) 0.1 TH/MM3 (0-0.4) Basophils # (Auto) 0.1 TH/MM3 (0-0.2) CBC Comment DIFF FINAL Differential Comment Sodium Level 134 MEQ/L (136-145) Potassium Level 4.1 MEQ/L (3.5-5.1) Chloride Level 99 MEQ/L (98-107) Carbon Dioxide Level 26.7 MEQ/L (21.0-32.0) Anion Gap 8 MEQ/L (5-15) Blood Urea Nitrogen 22 MG/DL (7-18) Creatinine 0.91 MG/DL (0.60-1.30) Estimat Glomerular Filtration 79 ML/MIN (>89) Rate Random Glucose 120 MG/DL (74-106) Calcium Level 8.0 MG/DL (8.5-10.1) Magnesium Level 2.1 MG/DL (1.5-2.5) Total Creatine Kinase 207 U/L (39-308) Troponin I 0.60 NG/ML (0.02-0.05) Result Diagram: 09/15/16 0418 09/15/16 0418 Imaging Last Impressions Aorta w/Runoff CTA 09/08/16 0000 Signed Impressions: Service Date/Time: August 16:35 - CONCLUSION: 1. Acute thrombus extending from left common femoral artery to the popliteal artery and below the knee vessels with basically no runoff to the left ankle. 2. Bilateral pleural effusions. 3. 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 Lidia Hager MD Chest X-Ray 09/07/16 0000 Signed Impressions: Service Date/Time: Wednesday, September 07, 2016 04:37 - CONCLUSION: Improved. Trace bibasilar atelectasis currently seen. Elias Cordero MD Lower Extremity Ultrasound 09/06/16 0000 Signed Impressions: Service Date/Time: Tuesday, September 06, 2016 21:43 - CONCLUSION: No DVT. Alistair Chaparro Jr., MD . Procedures ==Cardiac stent ==Intra-aortic balloon pump == Left Lower extremity vascular procedure * 1. BK pop/TPT endarterectomy and patch angioplasty * 2. GR[employer] DEAN endarterectomy and patch angioplasty * 3. L LE angiogram * 4. Embolectomy of popliteal artery * 5. embolectomy of peroneal artery == Left AKA . Patient/Family Conference Present at Family Conference: Patient. . Family Conference Time (mins): 50 Family Conference Location: Bedside Issues Discussed: * Palliative care role, purpose, approach * Additional medical, psychosocial, and spiritual history * Patients general health, functional status, and cognitive changes in the months leading up to the current hospitalization * Patient understanding of the current medical problems * Patient understanding of prognosis * Patients goals of care as best understood from advance directives and/or conversations and/or values * Current medical treatment options and benefits/burdens of those options * Likely scenarios comparing ongoing aggressive care with a transition to comfort measures only * Questions answered to the best of my ability . Assessment and Plan Disease Oriented Problem List: (1) ST elevation NM (STEMI) (2) Systolic dysfunction with acute on chronic heart failure (3) Atrial fibrillation, chronic (4) CAD (coronary artery disease) (5) Diarrhea (6) Chronic back pain Symptom Scale: (1) Pain 0-10 Scale: 6 Comment: Has chronic back pain; pain from recent surgeries (AKA; vascular procedures). . (2) Dyspnea 0-10 Scale: Unable to quantify Comment: Comfortable at rest on 02 via NC. . (3) Depression 0-10 Scale: Unable to quantify Comment: Reports history of depression prior to his recent hospitalization and says he has been on anti-depressants before which have helped. . Pertinent Non-Medical Issues Psychosocial: ; estranged from biological children; very close with one of his stepsons (lives in [facility]); cargo vessel stewardess is a friend. Lonely. Spiritual: Raised Protestant. No currently active. Declines account coordinator/stockroom supervisor Legal: Has Advance directives. Friend -- Fabi Pickett -- is designated surrogate. Ethical issues impacting care: Patient is currently capacitated. . Important Contacts Fabi Pickett (cargo vessel stewardess/ friend) [phone] . Prognosis Patient has been on disability for severe chroinic back pain sicne age 51. He was limited in mobility from this problme alone. He has severe atherosclerotic disease impacting both coronary and peripheral arteries. He has a low ejection fraction. He just suffered and NM, underwent stenting, developed an acute "cold" left lower extremity, underwent vascular surgery, but ultimately required a left AKA. There was a Halicat called today for chest pain. Given his advance age and what he has recently been through , I think it is unlikely that he will recover well enough to go home and be independent. Patient wants to continue to fight and wants rehab at this time. He understands that at such time he gets tired of the lin, he can transition to comfort measures. . Code Status: No Code Plan == Code Status : NO CODE. I personally spoke with the patient. He does not want additional shock , chest compressons, intubation/mechanical ventilation at this time. == Decision making: Patient is currently capacitated to make his own health care decisions. Should he become incapacitated, he has designated his cargo vessel stewardess -- Fabi Pickett - so be health care surrogate. == Goals of medical treatment: For now, patient would like aggressive care short of resuscitation. He is hoping to become stronger in rehab and get home. He understands that a transition to "comfort measures only" is available to him at such time when he feels the burdens of ongoing aggresive care outweight the benefits. == Pain: As noted above, patient has pain in groin and pain in stump and occasional chest pain. Pain is currently managed well with a COMPLIANCE DIRECTOR pump with hydromorphone. No fruther recommendations at this time. == Dyspnea: Currently, he is comfortable at rest with 02 via NC. No fruther recommendations at this time. == Depression: Admits to feeling depressed and admits to a past history of depression for which he was on anti-depressant medicatons in the past. Recommend a trial of an anti-depressant-- e.g. citalopram starting at 10 mg. == Diarrhea: Reports he has had diarrhea for years which intermittently causes fecal incontinence. He tells me he has had this evaluated by physicians with no real help. Opiates for pain should slow down the diarrhea. == Palliative care will continue to follow to assist with symptom management and to further clarify goals of medical treatment as the clincal course evolves. . Time Spent Total Floor Time (mins): 90 (total floor time included chart review, patient exam, conversation with attending physician, and above referenced bedside discussion with patient. ) Face to Face Time (mins): 50 >50% Counseling/Coord of Care: Yes Thank you for the opportunity to participate in the care of Mr. Polanco . Attestation To help prompt me to consider important information that might be impacting today's encounter and assessment, information from prior notes written by myself or my colleagues may have been "brought forward" into today's note. My signature on this note, however, is an attestation that I personally performed the exam, history, and/or decision-making noted today, and, unless otherwise indicated, the interactions with patient, family, and staff as well as the review of records all occurred today. I also attest that the listed assessment and stated plan reflect my best clinical judgment today based on the combination of historical information, prior notes, and today's exam/ interactions. When time spent is documented, it refers only to time spent today by the signer, or if indicated, combined time spent today by collaborating physician/nurse practitioner. . Baljeet Canela MD Sep 15, 2016 14:29
[2016-09-15] MEDS: ALPRAZolam 0.5 MG TAB PO PRN (18:45)
[2016-09-15] MEDS: ATORVASTATIN 40 MG TAB PO SCH (22:13)
[2016-09-16] VITALS (13 sets, daily range): BP systolic 100–142; BP diastolic 46–73; PULSE 4–113; RESP 18–20; TEMP 97.2–98.4; O2SAT 94–100
[2016-09-16] MEDS: NITROGLYCERIN 2% OINT 1 GM PACKET TOP SCH ×5 (01:08→23:27)
[2016-09-16] MEDS: LORazepam 2 MG/ML VIAL IV PUSH PRN (01:16)
[2016-09-16] MEDS: PCA - TOTAL MG DILAUDID DELIVERED PER SHIFT SCH (05:47)
[2016-09-16] MEDS: INSULIN NovoLIN REGULAR SUPPLEMENTAL SCALE SQ SCH ×4 (05:47→21:00)
--- NOTE | 2016-09-16 08:46 | EKG ---
Date Performed: 09/15/2016 Time Performed: 22:29:43 PTAGE: 86 years EKG: ATRIAL FIBRILLATION WITH ABERRANT CONDUCTION OR VENTRICULAR PREMATURE COMPLEXES INTRAVENTRI CULAR CONDUCTION DELAY ABNORMAL ECG PREVIOUS TRACING : 09/15/2016 16.43 Compared to prior tracing no significant change DOCTOR: Jozef Campuzano Interpretating Date/Time 09/16/2016 08:45:12
[2016-09-16] MEDS: ASPIRIN 81 MG CHEW TAB PO SCH (09:00)
[2016-09-16] MEDS: LACTULOSE SYRUP 20 GM/30 ML CUP PO SCH ×2 (09:00→21:08)
[2016-09-16] MEDS: ALPRAZolam 0.5 MG TAB PO PRN (09:36)
[2016-09-16] MEDS: LISINOPRIL 5 MG TAB PO SCH (09:36)
[2016-09-16] MEDS: METOPROLOL TARTRATE 25 MG TAB PO SCH ×2 (09:36→21:08)
[2016-09-16] MEDS: POTASSIUM CHLORIDE 10 MEQ CAP PO SCH ×2 (09:37→21:08)
[2016-09-16] MEDS: DIGOXIN 0.125 MG TAB PO SCH (09:37)
[2016-09-16] MEDS: CLOPIDOGREL 75 MG TAB PO SCH (09:37)
[2016-09-16] MEDS: FUROSEMIDE 40 MG TAB PO SCH ×2 (09:37→18:30)
[2016-09-16] MEDS: ENOXAPARIN SODIUM 30 MG/0.3 ML SYRINGE SQ SCH (11:51)
--- NOTE | 2016-09-16 14:51 | EKG ---
Date Performed: 09/15/2016 Time Performed: 16:43:49 PTAGE: 86 years EKG: ATRIAL FIBRILLATION INTRAVENTRICULAR CONDUCTION DELAY ABNORMAL ECG PREVIOUS TRACING : 09/07/2016 15.30 Compared to prior tracing no significant change DOCTOR: Jozef Campuzano Interpretating Date/Time 09/16/2016 14:49:49
--- NOTE | 2016-09-16 14:57 | PD.VS.PN ---
Subjective Procedure(s): L AKA Subjective/Hospital Course with minimal pain. Would like dressing off. Objective Vitals/I&O Date Time Temp Pulse Resp B/P Pulse Ox O2 Delivery O2 Flow Rate FiO2 09/16/16 12:05 99 Nasal Cannula 2.00 09/16/16 12:00 98.1 78 20 106/53 100 09/16/16 08:00 97.6 72 20 116/54 100 09/16/16 07:59 77 09/16/16 05:47 18 09/16/16 04:00 97.8 83 20 142/73 94 09/16/16 00:00 97.6 86 18 102/50 96 09/15/16 22:00 20 09/15/16 20:23 74 09/15/16 20:00 97.7 82 18 105/54 100 09/15/16 16:00 97.3 61 20 114/48 100 Automatic Cuff 09/16/16 09/16/16 09/16/16 07:00 15:00 23:00 Intake Total 240 ml Output Total 200 ml Balance 40 ml Exam: left aka site is clean Laboratory Laboratory Tests Test 09/15/16 09/15/16 17:29 22:44 Total Creatine Kinase 221 215 Troponin I 0.51 0.41 Assessment and Plan Plan s/p L AKA pain controlled. Patient doing well overall. Dressing removed. Stump stocking and set up for rehabilitation from our standpoint. Follow up in 3-4 weeks for staple removal in Dr. Castellanos's office. Jose Armando Peres DO, Jose Armando Vasquez DO Sep 16, 2016 14:57 Jose Armando Peres DO Sep 16, 2016 14:57
--- NOTE | 2016-09-16 15:15 | PD.WCN.NOT ---
Wound Consult Additional Information: Patient not seen by wound care. Patient has Prevena wound VAC in place to L groin. Spoke with Lee Ann MOORE for Vascular surgery. Telephone order received to d /c prevena wound VAC and cleanse surgical incision with normal saline and leave open to air.Left message for Zelda Jeffery [facility] Sep 16, 2016 15:15
[2016-09-16] MEDS ORDERED: PLAV75TA29 PO (15:20)
[2016-09-16] MEDS ORDERED: ASPI81CH25 PO (15:20)
[2016-09-16] MEDS ORDERED: ALPR0.5T3 PO (15:20)
[2016-09-16] MEDS ORDERED: DIGO0.12 PO (15:20)
[2016-09-16] MEDS ORDERED: ENOX30P SQ (15:20)
[2016-09-16] MEDS ORDERED: METO25TA3 PO (15:20)
[2016-09-16] MEDS ORDERED: LISI-519 PO (15:20)
[2016-09-16] MEDS ORDERED: NORC5TAB PO (15:21)
--- NOTE | 2016-09-16 15:30 | HHI.DS ---
Discharge Summary Admission Date Sep 04, 2016 at 21:50 Admitting Diagnosis (1) Diarrhea (2) Chest pain (3) ST elevation LA (STEMI) (4) Ischemic leg (5) Systolic dysfunction with acute on chronic heart failure (6) Afib (7) CAD (coronary artery disease) (8) Depression CBC/BMP: 09/15/16 0418 09/15/16 0418 Significant Findings Laboratory Tests Test 09/14/16 09/15/16 09/15/16 09/15/16 04:05 04:18 13:02 17:29 White Blood Count 13.0 TH/MM3 11.8 TH/MM3 (4.0-11.0) (4.0-11.0) Red Blood Count 2.99 MIL/MM3 2.83 MIL/MM3 (4.50-5.90) (4.50-5.90) Hemoglobin 9.6 GM/DL 9.3 GM/DL (13.0-17.0) (13.0-17.0) Hematocrit 29.1 % 26.9 % (39.0-51.0) (39.0-51.0) Neutrophils (%) (Auto) 71.6 % (16.0-70.0) Monocytes (%) (Auto) 12.5 % (0.0-8.0) Neutrophils # (Auto) 8.5 TH/MM3 (1.8-7.7) Monocytes # (Auto) 1.5 TH/MM3 (0-0.9) Sodium Level 134 MEQ/L (136-145) Blood Urea Nitrogen 22 MG/DL (7-18) Estimat Glomerular Filtration 79 ML/MIN (>89) Rate Random Glucose 120 MG/DL (74-106) Calcium Level 8.0 MG/DL (8.5-10.1) Troponin I 0.60 NG/ML 0.51 NG/ML (0.02-0.05) (0.02-0.05) Test 09/15/16 22:44 Troponin I 0.41 NG/ML (0.02-0.05) PE at Discharge GENERAL: This is a well-nourished, well-developed patient, in no apparent distress. CARDIOVASCULAR: Regular rate and rhythm without murmurs, gallops, or rubs. RESPIRATORY: Clear to auscultation. Breath sounds equal bilaterally. No wheezes , rales, or rhonchi. GASTROINTESTINAL: Abdomen soft, non-tender, nondistended. Normal active bowel sounds MUSCULOSKELETAL: Extremities without clubbing, cyanosis, or edema. NEURO: A&Ox2, but confused at times. Moves all ext x4 EXT: left stump bandaged Hospital Course (1) Diarrhea Status: Acute Plan: - obtain C.Dif PCR - obtain stool studies - observe (2) Chest pain Status: Acute Plan: - case d/w Dr. Zaragoza (09/15/16) - NTG paste added to current regimen - will obtain serial cardiac enzymes - will obtain serial EKGs - currently on laura/bb/asa/plavix/statin - obtain Palliative Consult for clarification of goals (3) ST elevation LA (STEMI) Status: Acute Plan: - Pt with cad presented with cardiogenic shock - STEMI s/p LAD stent - balloon pump now removed. 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 Castellanos (09/13/16) - dialudid ISOTOPE TECHNOLOGIST - constipation precautions - post op mgmt per Surgery - ady 09/14 - PT - transfer to general medical floor (5) Systolic dysfunction with acute on chronic heart failure Status: Acute Plan: see above (6) Afib Status: Chronic Plan: - see above (7) CAD (coronary artery disease) Status: Chronic Plan: - see above (8) Depression Status: Chronic Pt Condition on Discharge: Stable Discharge Disposition: Discharge to SNF Discharge Instructions DIET: Follow Instructions for: Heart Healthy Diet Activities you can perform: Partial Weight Bearing Other Activity Instructions: weight bearing instructions per surgery Phan Linda DO Sep 16, 2016 15:30
--- NOTE | 2016-09-16 15:33 | HHI.DCPOC ---
Discharge Care Plan Diagnosis: (1) HTN (hypertension) (2) Afib (3) Ischemic leg (4) Cardiogenic shock (5) CAD (coronary artery disease) Goals to Promote Your Health * To prevent worsening of your condition and complications * To maintain your health at the optimal level Directions to Meet Your Goals Take your medications as prescribed Follow your dietary instruction Follow activity as directed Keep your appointments as scheduled Take your immunizations and boosters as scheduled If your symptoms worsen call your PCP, if no PCP go to Urgent Care Center or Emergency Room Smoking is Dangerous to Your Health. Avoid second hand smoke Call the 24-hour hour crisis hotline for domestic abuse at Phan Linda DO Sep 16, 2016 15:33
--- NOTE | 2016-09-16 17:17 | HHI.HCPN ---
Reason for visit a. To assist with evaluation and management of symptoms including: pain; dyspnea, depression b. To assist medical decision maker(s) with: better understanding of current medical conditions; weighing benefits/burdens of medical treatment options; making medical treatment decisions. . Subjective/Interval History Patient is awake and alert at time of my visit. He denies any significant pain. INSURANCE UNDERWRITER pump has been discontinued. He thinks he may have pressed the button 1-2 x earlier today. Denies SOB. Mood is more upbeat. No other complaints. Pt was going to be discharged today, but it appears the discharge is being postponed until 09/17/16. . Family/friend interactions No family/friends at bedside. . Advance Directives Living Will: Copy in medical record Health Care Surrogate: Copy in medical record Durable Power of Group Marketing Vp: Never completed Advance Directive Specifics Date completed: Living will and designation of health care surrogate in EMR dated 08/23/16. . Health Care Surrogate(s): Designated health care surrogate is Fabi Pickett (friend) . Documented care wishes: Living will indicates he would not want life prolonging measures if he were found to be in a persistent vegetative state. The living will has not checked the boxed for terminal condition or end-stage condition. . Objective Vital Signs Date Time Temp Pulse Resp B/P Pulse Ox O2 Delivery O2 Flow Rate FiO2 09/16/16 16:00 97.9 76 20 100/46 100 09/16/16 12:05 99 Nasal Cannula 2.00 09/16/16 12:00 98.1 78 20 106/53 100 09/16/16 08:00 97.6 72 20 116/54 100 09/16/16 07:59 77 09/16/16 05:47 18 09/16/16 04:00 97.8 83 20 142/73 94 09/16/16 00:00 97.6 86 18 102/50 96 09/15/16 22:00 20 09/15/16 20:23 74 09/15/16 20:00 97.7 82 18 105/54 100 Intake & Output 09/16/16 09/16/16 07:00 19:00 Intake Total 2641 ml 240 ml Output Total 700 ml 450 ml Balance 1941 ml -210 ml Intake Oral 2641 ml 240 ml Output Urine Total 700 ml 450 ml # Voids 0 # Bowel Movements 1 0 . Physical Exam CONSTITUTIONAL/GENERAL: This is an adequately nourished patient in a general medical bed. No apparent distress. TUBES/LINES/DRAINS: Peripheral IV; [place]; NC 02 SKIN: No jaundice, rashes, or lesions. Ecchymoses on upper extremities. Stump not examined. HEAD: Atraumatic. Normocephalic. EYES: Pupils equal and round. Extraocular motions intact. No scleral icterus. No injection or drainage. Fundi not examined. ENT: Hearing grossly normal. Nose without bleeding or purulent drainage. Throat without visible erythema, exudates, masses, or lesions. NECK: Trachea midline. Supple, nontender. CARDIOVASCULAR: Regular rate and rhythm without murmurs, gallops, or rubs. No JVD. RESPIRATORY/CHEST: Symmetric, unlabored respirations. Clear to auscultation. Breath sounds equal bilaterally. No wheezes, rales, or rhonchi. GASTROINTESTINAL: Abdomen soft, non-tender, nondistended. No hepato-splenomegaly , or palpable masses. No guarding. Bowel sounds present. GENITOURINARY: Without palpable bladder distension. MUSCULOSKELETAL: LLE AKA. Extremities otherwise without clubbing, cyanosis, or edema. LYMPHATICS: Not examined. NEUROLOGICAL: Awake and alert. Motor and sensory grossly within normal limits. Follows commands. Cognitively sharp. Moves all extremities. PSYCHIATRIC: No obvious anxiety. More upbeat today. No apparent hallucinations or other psychotic thought process. . Diagnostic Tests Laboratory Laboratory Tests Test 09/14/16 09/15/16 09/15/16 09/15/16 04:05 04:18 13:02 17:29 White Blood Count 13.0 TH/MM3 11.8 TH/MM3 (4.0-11.0) (4.0-11.0) Red Blood Count 2.99 MIL/MM3 2.83 MIL/MM3 (4.50-5.90) (4.50-5.90) Hemoglobin 9.6 GM/DL 9.3 GM/DL (13.0-17.0) (13.0-17.0) Hematocrit 29.1 % 26.9 % (39.0-51.0) (39.0-51.0) Mean Corpuscular Volume 97.4 FL 95.1 FL (80.0-100.0) (80.0-100.0) Mean Corpuscular Hemoglobin 32.1 PG 33.0 PG (27.0-34.0) (27.0-34.0) Mean Corpuscular Hemoglobin 33.0 % 34.7 % Concent (32.0-36.0) (32.0-36.0) Red Cell Distribution Width 14.5 % 14.3 % (11.6-17.2) (11.6-17.2) Platelet Count 205 TH/MM3 186 TH/MM3 (150-450) (150-450) Mean Platelet Volume 8.1 FL 8.4 FL (7.0-11.0) (7.0-11.0) Neutrophils (%) (Auto) 71.6 % (16.0-70.0) Lymphocytes (%) (Auto) 14.1 % (9.0-44.0) Monocytes (%) (Auto) 12.5 % (0.0-8.0) Eosinophils (%) (Auto) 1.2 % (0.0-4.0) Basophils (%) (Auto) 0.6 % (0.0-2.0) Neutrophils # (Auto) 8.5 TH/MM3 (1.8-7.7) Lymphocytes # (Auto) 1.7 TH/MM3 (1.0-4.8) Monocytes # (Auto) 1.5 TH/MM3 (0-0.9) Eosinophils # (Auto) 0.1 TH/MM3 (0-0.4) Basophils # (Auto) 0.1 TH/MM3 (0-0.2) CBC Comment DIFF FINAL Differential Comment Sodium Level 134 MEQ/L (136-145) Potassium Level 4.1 MEQ/L (3.5-5.1) Chloride Level 99 MEQ/L (98-107) Carbon Dioxide Level 26.7 MEQ/L (21.0-32.0) Anion Gap 8 MEQ/L (5-15) Blood Urea Nitrogen 22 MG/DL (7-18) Creatinine 0.91 MG/DL (0.60-1.30) Estimat Glomerular Filtration 79 ML/MIN (>89) Rate Random Glucose 120 MG/DL (74-106) Calcium Level 8.0 MG/DL (8.5-10.1) Magnesium Level 2.1 MG/DL (1.5-2.5) Total Creatine Kinase 207 U/L 221 U/L (39-308) (39-308) Troponin I 0.60 NG/ML 0.51 NG/ML (0.02-0.05) (0.02-0.05) Test 09/15/16 22:44 Total Creatine Kinase 215 U/L (39-308) Troponin I 0.41 NG/ML (0.02-0.05) . Result Diagram: 09/15/1641709/15/16417 Procedures ==Cardiac stent ==Intra-aortic balloon pump == Left Lower extremity vascular procedure * 1. BK pop/TPT endarterectomy and patch angioplasty * 2. BARREL CHARRER HELPER endarterectomy and patch angioplasty * 3. L LE angiogram * 4. Embolectomy of popliteal artery * 5. embolectomy of peroneal artery == Left AKA . Assessment and Plan Disease Oriented Problem List: (1) ST elevation MA (STEMI) (2) Systolic dysfunction with acute on chronic heart failure (3) Atrial fibrillation, chronic (4) CAD (coronary artery disease) (5) Diarrhea (6) Chronic back pain (7) Peripheral arterial disease Comment: s/p left AKA . Symptom Scale: (1) Pain 0-10 Scale: 6 Comment: Has chronic back pain; pain from recent surgeries (AKA; vascular procedures). Much improved. . (2) Dyspnea 0-10 Scale: Unable to quantify Comment: Comfortable at rest on 02 via NC. . (3) Depression 0-10 Scale: Unable to quantify Comment: Reports history of depression prior to his recent hospitalization and says he has been on anti-depressants before which have helped. . Pertinent Non-Medical Issues Psychosocial: ; estranged from biological children; very close with one of his stepsons (lives in [facility]); intellectual property counsel is a friend. Lonely. Spiritual: Raised [place]. Not currently active. 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 Friend -- Fabi Pickett -- is designated surrogate. Ethical issues impacting care: Patient is currently capacitated. . Important Contacts Fabi Pickett (intellectual property counsel/ friend) [phone] . Prognosis Patient has been on disability for severe chronic back pain since age 51. He was limited in mobility from this problem alone. He has severe atherosclerotic disease impacting both coronary and peripheral arteries. He has a low ejection fraction. He just suffered and MA, underwent stenting, developed an acute "cold" left lower extremity, underwent vascular surgery, but ultimately required a left AKA. There was a Halicat called 09/15/16 for chest pain. Given his advanced age and what he has recently been through , I think it is unlikely that he will recover well enough to go home and be independent. Patient wants to continue to fight and wants rehab at this time. He understands that at such time he gets tired of the lin, he can transition to comfort measures. . Code Status: No Code Plan == Code Status : NO CODE. I personally spoke with the patient. He does not want additional shock , chest compressions, intubation/mechanical ventilation at this time. == Decision making: Patient is currently capacitated to make his own health care decisions. Should he become incapacitated, he has designated his intellectual property counsel -- Fabi Pickett - so be health care surrogate. == Goals of medical treatment: For now, patient would like aggressive care short of resuscitation. He is hoping to become stronger in rehab and get home. He understands that a transition to "comfort measures only" is available to him at such time when he feels the burdens of ongoing aggressive care outweigh the benefits. == Pain: As noted above, patient has pain in groin and pain in stump and occasional chest pain. Pain was managed initially with a INSURANCE UNDERWRITER pump that has been DCd. He has prn oxycodone/acetaminophen available to him. No further recommendations at this time. == Dyspnea: Currently, he is comfortable at rest with 02 via NC. No further recommendations at this time. == Depression: Admits to feeling depressed and admits to a past history of depression for which he was on anti-depressant medicatons in the past. Recommend a trial of an anti-depressant-- e.g. citalopram starting at 10 mg. == Diarrhea: Reports he has had diarrhea for years which intermittently causes fecal incontinence. He tells me he has had this evaluated by physicians with no real help. Opiates for pain should slow down the diarrhea. == Given his goals of DNR status, recommend he be sent to rehab with a completed [facility] DNR Order. == Discussed with Dr. Linda -- patient will likely be discharged to rehab on 09/17/16. . Attestation To help prompt me to consider important information that might be impacting today's encounter and assessment, information from prior notes written by myself or my colleagues may have been "brought forward" into today's note. My signature on this note, however, is an attestation that I personally performed the exam, history, and/or decision-making noted today, and, unless otherwise indicated, the interactions with patient, family, and staff as well as the review of records all occurred today. I also attest that the listed assessment and stated plan reflect my best clinical judgment today based on the combination of historical information, prior notes, and today's exam/ interactions. When time spent is documented, it refers only to time spent today by the signer, or if indicated, combined time spent today by collaborating physician/nurse practitioner. . Baljeet Canela MD Sep 16, 2016 17:17
[2016-09-16] MEDS: ATORVASTATIN 40 MG TAB PO SCH (21:08)
[2016-09-17] VITALS (11 sets, daily range): BP systolic 96–151; BP diastolic 52–76; PULSE 60–88; RESP 18–22; TEMP 96.2–97.8; O2SAT 97–100
[2016-09-17] MEDS: LORazepam 2 MG/ML VIAL IV PUSH PRN ×2 (00:10→04:16)
[2016-09-17] MEDS: NITROGLYCERIN 2% OINT 1 GM PACKET TOP SCH ×4 (05:45→23:37)
[2016-09-17 06:41] LABS: HEMATOCRIT 28.8 % (39.0-51.0); MEAN CELL VOLUME 95.8 FL (80.0-100.0); MEAN CORPUSCULAR HEMOGLOBIN 32.9 PG (27.0-34.0); MEAN CORPUSCULAR HGB CONC 34.3 % (32.0-36.0); PLATELET COUNT 233 TH/MM3 (150-450); RED BLOOD COUNT 3.01 MIL/MM3 (4.50-5.90); RED CELL DISTRIBUTION WIDTH 14.4 % (11.6-17.2); REVIEW FLAG FINAL; WHITE BLOOD COUNT 15.2 TH/MM3 (4.0-11.0)
[2016-09-17] MEDS: INSULIN NovoLIN REGULAR SUPPLEMENTAL SCALE SQ SCH ×4 (06:42→21:00)
[2016-09-17] MEDS: METOPROLOL TARTRATE 25 MG TAB PO SCH (08:41)
[2016-09-17] MEDS: POTASSIUM CHLORIDE 10 MEQ CAP PO SCH ×2 (08:41→21:49)
[2016-09-17] MEDS: LACTULOSE SYRUP 20 GM/30 ML CUP PO SCH ×2 (08:41→21:49)
[2016-09-17] MEDS: LISINOPRIL 5 MG TAB PO SCH (08:42)
[2016-09-17] MEDS: FUROSEMIDE 40 MG TAB PO SCH ×2 (08:42→18:08)
[2016-09-17] MEDS: DIGOXIN 0.125 MG TAB PO SCH (08:42)
[2016-09-17] MEDS: CLOPIDOGREL 75 MG TAB PO SCH (08:42)
[2016-09-17] MEDS: ASPIRIN 81 MG CHEW TAB PO SCH (08:42)
[2016-09-17] MEDS: ENOXAPARIN SODIUM 30 MG/0.3 ML SYRINGE SQ SCH (12:46)
--- NOTE | 2016-09-17 14:29 | HHI.PR ---
Subjective Remarks Pt became bradycardic this AM without new clinical complaints. Still with periods of confusion. Objective Vitals Vital Signs Date Time Temp Pulse Resp B/P Pulse Ox O2 Delivery O2 Flow Rate FiO2 09/17/16 12:00 97.0 88 22 151/76 100 09/17/16 09:00 97 Nasal Cannula 3.00 09/17/16 08:43 83 09/17/16 08:00 97.3 66 18 96/53 100 09/17/16 04:40 96.2 76 20 132/59 100 09/17/16 00:00 97.3 62 18 101/52 100 09/16/16 20:00 97.2 83 18 138/63 98 09/16/16 20:00 76 09/16/16 17:55 100 Nasal Cannula 2.00 09/16/16 16:00 97.9 76 20 100/46 100 09/16/16 09/16/16 09/17/16 14:59 22:59 06:59 Intake Total 240 ml Output Total 450 ml 200 ml Balance -210 ml -200 ml Intake Oral 240 ml Output Urine Total 450 ml 200 ml # Bowel Movements 0 0 Result Diagram: 09/17/16 0552 09/15/16 0418 Imaging Last Impressions Aorta w/Runoff CTA 09/08/16 0000 Signed Impressions: Service Date/Time: August 16:35 - CONCLUSION: 1. Acute thrombus extending from left common femoral artery to the popliteal artery and below the knee vessels with basically no runoff to the left ankle. 2. Bilateral pleural effusions. 3. 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 Lidia Hager MD Chest X-Ray 09/07/16 0000 Signed Impressions: Service Date/Time: Wednesday, September 07, 2016 04:37 - CONCLUSION: Improved. Trace bibasilar atelectasis currently seen. Elias Cordero MD Lower Extremity Ultrasound 09/06/16 0000 Signed Impressions: Service Date/Time: Tuesday, September 06, 2016 21:43 - CONCLUSION: No DVT. Alistair Chaparro Jr., MD Objective Remarks GENERAL: This is a well-nourished, well-developed patient, in no apparent distress. CARDIOVASCULAR: irregular RESPIRATORY: Clear to auscultation. Breath sounds equal bilaterally. No wheezes , rales, or rhonchi. GASTROINTESTINAL: Abdomen soft, non-tender, nondistended. Normal active bowel sounds MUSCULOSKELETAL: Extremities without clubbing, cyanosis, or edema. NEURO: A&Ox2, but confused at times. Moves all ext x4 EXT: left stump bandaged A/P Problem List: (1) Bradycardia Status: Acute Plan: - pt had some bradycardia this AM with HR dropping into the upper 30s & low 40s - AM metoprolol held - this afternoon telemetry again shows afib with HR 70-80 - stop metoprolol - observe overnight on telemetry - if pt remains stable, overnight then anticipate d/c to SNF 09/18/13 (2) Diarrhea Status: Acute Plan: - resolved - stool sample NOT sent (3) Chest pain Status: Acute Plan: - comgmt with Palliative Medicine - case d/w Dr. Zaragoza (09/15/16) - NTG paste added to current regimen - serial cardiac enzymes --> flat pattern - serial EKGs --> NO acute ischemic changes - currently on laura/bb/asa/plavix/statin - DNR (4) ST elevation MS (STEMI) Status: Acute Plan: - Pt with cad presented with cardiogenic shock - STEMI s/p LAD stent - balloon pump now removed. 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 Castellanos (09/13/16) - dialudid TUFTING SUPERVISOR - constipation precautions - post op mgmt per Surgery - lovenox 09/14 - PT - transfer to general medical floor (6) Systolic dysfunction with acute on chronic heart failure Status: Acute Plan: see above (7) Afib Status: Chronic Plan: - see above (8) CAD (coronary artery disease) Status: Chronic Plan: - see above (9) Depression Status: Chronic Problem Qualifiers (1) Diarrhea: Qualified Code: R19.7 - Diarrhea, unspecified type (2) ST elevation MS (STEMI): Qualified Code: I21.02 - ST elevation myocardial infarction involving left anterior descending (LAD) coronary artery Phan Linda DO Sep 17, 2016 14:29
[2016-09-17] MEDS: oxyCODONE/ACETAMINOPHEN 10 MG/325 MG TAB PO PRN (15:58)
[2016-09-17] MEDS: ATORVASTATIN 40 MG TAB PO SCH (21:50)
[2016-09-18] VITALS (8 sets, daily range): BP systolic 102–118; BP diastolic 55–65; PULSE 65–87; RESP 18–20; TEMP 97.5–98.7; O2SAT 98–100
[2016-09-18] MEDS: ALPRAZolam 0.5 MG TAB PO PRN ×2 (02:43→21:32)
[2016-09-18] MEDS: oxyCODONE/ACETAMINOPHEN 10 MG/325 MG TAB PO PRN (04:20)
[2016-09-18] MEDS: NITROGLYCERIN 2% OINT 1 GM PACKET TOP SCH ×4 (05:10→23:27)
[2016-09-18] MEDS: INSULIN NovoLIN REGULAR SUPPLEMENTAL SCALE SQ SCH ×4 (06:02→19:50)
[2016-09-18] MEDS: LORazepam 2 MG/ML VIAL IV PUSH PRN ×2 (06:38→22:40)
[2016-09-18] MEDS: POTASSIUM CHLORIDE 10 MEQ CAP PO SCH ×2 (08:43→19:35)
[2016-09-18] MEDS: ASPIRIN 81 MG CHEW TAB PO SCH (08:43)
[2016-09-18] MEDS: LACTULOSE SYRUP 20 GM/30 ML CUP PO SCH ×2 (08:43→19:35)
[2016-09-18] MEDS: DIGOXIN 0.125 MG TAB PO SCH (08:44)
[2016-09-18] MEDS: CLOPIDOGREL 75 MG TAB PO SCH (08:45)
[2016-09-18] MEDS: FUROSEMIDE 40 MG TAB PO SCH ×2 (08:45→18:18)
[2016-09-18] MEDS: LISINOPRIL 5 MG TAB PO SCH (08:49)
[2016-09-18] MEDS: ENOXAPARIN SODIUM 30 MG/0.3 ML SYRINGE SQ SCH (12:33)
--- NOTE | 2016-09-18 17:24 | HHI.PR ---
Subjective Remarks nursing called me to report intermittent episodes of SVT and bradycardia. Pt is anxious at times but does NOT seem to correlate to his telemetry findings. Objective Vitals Vital Signs Date Time Temp Pulse Resp B/P Pulse Ox O2 Delivery O2 Flow Rate FiO2 09/18/16 08:00 97.5 74 20 109/55 98 09/18/16 04:02 86 09/18/16 04:00 98.7 80 18 115/65 100 09/18/16 00:00 98.2 87 20 117/60 99 09/17/16 20:50 97 Nasal Cannula 2.00 09/17/16 20:00 86 09/17/16 20:00 97.8 71 20 119/59 99 09/17/16 19:54 81 09/17/16 18:27 60 09/17/16 09/17/16 09/18/16 15:00 23:00 07:00 Intake Total 480 ml 240 ml 240 ml Output Total 400 ml Balance 80 ml 240 ml 240 ml Intake Oral 480 ml 240 ml 240 ml IV Total 0 ml 0 ml Output Urine Total 400 ml # Voids 2 2 3 # Bowel Movements 2 1 1 Result Diagram: 09/17/16 0552 09/15/16 0418 Imaging Last Impressions Aorta w/Runoff CTA 09/08/16 0000 Signed Impressions: Service Date/Time: August 16:35 - CONCLUSION: 1. Acute thrombus extending from left common femoral artery to the popliteal artery and below the knee vessels with basically no runoff to the left ankle. 2. Bilateral pleural effusions. 3. 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 Lidia Hager MD Chest X-Ray 09/07/16 0000 Signed Impressions: Service Date/Time: Wednesday, September 07, 2016 04:37 - CONCLUSION: Improved. Trace bibasilar atelectasis currently seen. Elias Cordero MD Lower Extremity Ultrasound 09/06/16 0000 Signed Impressions: Service Date/Time: Tuesday, September 06, 2016 21:43 - CONCLUSION: No DVT. Alistair Chaparro Jr., MD Objective Remarks GENERAL: This is a well-nourished, well-developed patient, in no apparent distress. CARDIOVASCULAR: irregular RESPIRATORY: Clear to auscultation. Breath sounds equal bilaterally. No wheezes , rales, or rhonchi. GASTROINTESTINAL: Abdomen soft, non-tender, nondistended. Normal active bowel sounds MUSCULOSKELETAL: Extremities without clubbing, cyanosis, or edema. NEURO: A&Ox2, but confused at times. Moves all ext x4 EXT: left stump bandaged A/P Problem List: (1) Chest pain Status: Acute Plan: - comgmt with Palliative - case d/w Dr. Zaragoza (09/15/16) - NTG paste added to current regimen - serial cardiac enzymes --> flat pattern - serial EKGs --> NO acute ischemic changes - currently on laura/bb/asa/plavix/statin - telemetry: episodes of both SVT and bradycardia - reconsult [facility] cardiology. (2) ST elevation CT (STEMI) Status: Acute Plan: - Pt with cad presented with cardiogenic shock - STEMI s/p LAD stent - balloon pump now removed. - systolic chf with EF 20-25% - Pt is currently more compensated from his chf - acute on chronic thrombosis/ischemic left leg operations lieutenant to popliteal, pt underwent left AKA, see above - currently on laura/bb/asa/plavix/statin - lasix/kcl - laxatives - PT - supportive care (3) Diarrhea Status: Resolved Plan: - obtain C.Dif PCR - obtain stool studies - observe (4) Ischemic leg Status: Acute Plan: s/p on 09/09: pop/TPT endarterectomy and patch angioplasty DIVISION TOLL WIRE CHIEF endarterectomy and patch angioplasty L LE angiogram Embolectomy of popliteal artery embolectomy of peroneal artery - left AKA performed by Dr. Castellanos (09/13/16) - percocet - constipation precautions - post op mgmt per Surgery - lovenox 09/14 - PT (5) Systolic dysfunction with acute on chronic heart failure Status: Acute Plan: see above (6) Afib Status: Chronic Plan: - see above (7) CAD (coronary artery disease) Status: Chronic Plan: - see above (8) Depression Status: Chronic Problem Qualifiers (1) ST elevation CT (STEMI): Qualified Code: I21.02 - ST elevation myocardial infarction involving left anterior descending (LAD) coronary artery (2) Diarrhea: Qualified Code: R19.7 - Diarrhea, unspecified type Phan Linda DO Sep 18, 2016 17:24
[2016-09-18] MEDS: ATORVASTATIN 40 MG TAB PO SCH (19:35)
[2016-09-19] VITALS (10 sets, daily range): BP systolic 125–140; BP diastolic 60–68; PULSE 45–97; RESP 20–22; TEMP 97.5–98; O2SAT 94–100
[2016-09-19] MEDS: ALPRAZolam 0.5 MG TAB PO PRN ×2 (01:26→18:19)
[2016-09-19] MEDS: oxyCODONE/ACETAMINOPHEN 10 MG/325 MG TAB PO PRN ×3 (02:17→21:27)
[2016-09-19] MEDS: LORazepam 2 MG/ML VIAL IV PUSH PRN (04:11)
[2016-09-19] MEDS: NITROGLYCERIN 2% OINT 1 GM PACKET TOP SCH ×3 (05:22→18:13)
[2016-09-19] MEDS: INSULIN NovoLIN REGULAR SUPPLEMENTAL SCALE SQ SCH ×4 (05:24→21:49)
[2016-09-19 07:39] LABS: BICARBONATE 23.3 MEQ/L (21.0-32.0); MAGNESIUM 2.5 MG/DL (1.5-2.5); POTASSIUM 4.1 MEQ/L (3.5-5.1)
[2016-09-19 07:45] LABS: AUTOMATED NEUTROPHIL # 9.4 TH/MM3 (1.8-7.7); BASOPHIL # 0.1 TH/MM3 (0-0.2); BASOPHIL % 0.7 % (0.0-2.0); EOSINOPHIL # 0.1 TH/MM3 (0-0.4); EOSINOPHIL % 1.1 % (0.0-4.0); HEMATOCRIT 29.6 % (39.0-51.0); HEMO FLAGS DIFF FINAL; LYMPH % 15.2 % (9.0-44.0); LYMPHOCYTE # 1.9 TH/MM3 (1.0-4.8); MEAN CELL VOLUME 97.5 FL (80.0-100.0); MEAN CORPUSCULAR HEMOGLOBIN 33.1 PG (27.0-34.0); MEAN CORPUSCULAR HGB CONC 33.9 % (32.0-36.0); MONO % 8.9 % (0.0-8.0); NEUT % 74.1 % (16.0-70.0); PLATELET COUNT 249 TH/MM3 (150-450); RED BLOOD COUNT 3.03 MIL/MM3 (4.50-5.90); WHITE BLOOD COUNT 12.7 TH/MM3 (4.0-11.0)
[2016-09-19] MEDS: POTASSIUM CHLORIDE 10 MEQ CAP PO SCH ×2 (09:15→21:27)
[2016-09-19] MEDS: LACTULOSE SYRUP 20 GM/30 ML CUP PO SCH ×2 (09:15→21:27)
[2016-09-19] MEDS: DIGOXIN 0.125 MG TAB PO SCH (09:16)
[2016-09-19] MEDS: CLOPIDOGREL 75 MG TAB PO SCH (09:16)
[2016-09-19] MEDS: ASPIRIN 81 MG CHEW TAB PO SCH (09:16)
[2016-09-19] MEDS: FUROSEMIDE 40 MG TAB PO SCH (09:16)
[2016-09-19] MEDS: LISINOPRIL 5 MG TAB PO SCH (09:16)
--- NOTE | 2016-09-19 10:53 | HHI.PR ---
Subjective Remarks pt c/o chest pain/tightness intermittently has a mild cough. Objective Vitals heart irreg lung cta abd s/nt ext left aka Vital Signs Date Time Temp Pulse Resp B/P Pulse Ox O2 Delivery O2 Flow Rate FiO2 09/19/16 09:13 98 Nasal Cannula 2.00 09/19/16 08:00 97.6 97 20 130/68 100 09/19/16 04:00 98.0 74 20 128/60 100 09/18/16 20:00 75 09/18/16 20:00 98.2 70 20 115/59 100 09/18/16 18:44 98 09/18/16 16:00 98.1 65 20 102/59 99 09/18/16 16:00 76 09/18/16 12:00 98.4 72 20 118/55 100 09/18/16 09/18/16 09/19/16 14:59 22:59 06:59 Intake Total 700 ml 2 ml Output Total 300 ml 301 ml Balance 400 ml -299 ml Intake Oral 700 ml IV Total 2 ml Output Urine Total 300 ml 300 ml Stool Total 1 ml # Bowel Movements 1 Result Diagram: 09/19/16 0524 09/19/16 0524 Imaging Last Impressions Aorta w/Runoff CTA 09/08/16 0000 Signed Impressions: Service Date/Time: August 16:35 - CONCLUSION: 1. Acute thrombus extending from left common femoral artery to the popliteal artery and below the knee vessels with basically no runoff to the left ankle. 2. Bilateral pleural effusions. 3. 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 Lidia Hager MD Chest X-Ray 09/07/16 0000 Signed Impressions: Service Date/Time: Wednesday, September 07, 2016 04:37 - CONCLUSION: Improved. Trace bibasilar atelectasis currently seen. Elias Cordero MD Lower Extremity Ultrasound 09/06/16 0000 Signed Impressions: Service Date/Time: Tuesday, September 06, 2016 21:43 - CONCLUSION: No DVT. Alistair Chaparro Jr., MD A/P Problem List: (1) ST elevation [place] (STEMI) Status: Acute Plan: - Pt with cad presented with cardiogenic shock - STEMI s/p LAD stent - balloon pump now removed. 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 Castellanos (09/13/16) - percocet - constipation precautions - post op mgmt per Surgery - lovenox 09/14 - PT (3) Systolic dysfunction with acute on chronic heart failure Status: Acute Plan: see above (4) Afib Status: Chronic Plan: - see above (5) CAD (coronary artery disease) Status: Chronic Plan: - see above (6) Depression Status: Chronic Problem Qualifiers (1) ST elevation [place] (STEMI): Qualified Code: I21.02 - ST elevation myocardial infarction involving left anterior descending (LAD) coronary artery Lukas Rangel MD Sep 19, 2016 10:53
--- NOTE | 2016-09-19 11:02 | HHI.HCPN ---
Met with Mr. Horn for follow up palliative care visit and support.He is currently lying in bed, appears comfortable in no apparent distress, and presents with confusion. Upon entrance into room he is stating he "needs to get back into bed" "I'm not in the living room" "I need my ticket". Fairly easily redirected. No family/friends at bedside. Breakfast at bedside, majority of meal still there. Unable to discuss goals of care, living will, complete community DNR. Should Mr. Horn's confusion clear up, or his [facility] visit, it would be important to get yellow community DNR signed to discharge with him for continuity of care regarding his wishes to remain a DNR. Palliative care will continue to follow throughout hospitalization. China Chaparro, HIGHWAY SAFETY ENGINEER Sep 19, 2016 11:02
[2016-09-19] MEDS: ENOXAPARIN SODIUM 30 MG/0.3 ML SYRINGE SQ SCH (11:47)
--- NOTE | 2016-09-19 12:22 | PD.VS.PN ---
Subjective POD #: 6 Procedure(s): L AKA Subjective/Hospital Course Pt alert in NAD L AKA incision intact (Lee Ann Chavez) Objective Vitals/I&O Date Time Temp Pulse Resp B/P Pulse Ox O2 Delivery O2 Flow Rate FiO2 09/19/16 09:13 98 Nasal Cannula 2.00 09/19/16 08:00 97.6 97 20 130/68 100 09/19/16 04:00 98.0 74 20 128/60 100 09/18/16 20:00 75 09/18/16 20:00 98.2 70 20 115/59 100 09/18/16 18:44 98 09/18/16 16:00 98.1 65 20 102/59 99 09/18/16 16:00 76 Exam: GENERAL: Alert in nad SKIN: Warm and dry/L AKA incision intact w/staple closure/ No R/D/S/O present MUSCULOSKELETAL: No cyanosis, or edema. Laboratory Laboratory Tests Test 09/19/16 05:24 White Blood Count 12.7 Red Blood Count 3.03 Hemoglobin 10.0 Hematocrit 29.6 Mean Corpuscular Volume 97.5 Mean Corpuscular Hemoglobin 33.1 Mean Corpuscular Hemoglobin 33.9 Concent Red Cell Distribution Width 15.0 Platelet Count 249 Mean Platelet Volume 8.3 Neutrophils (%) (Auto) 74.1 Lymphocytes (%) (Auto) 15.2 Monocytes (%) (Auto) 8.9 Eosinophils (%) (Auto) 1.1 Basophils (%) (Auto) 0.7 Neutrophils # (Auto) 9.4 Lymphocytes # (Auto) 1.9 Monocytes # (Auto) 1.1 Eosinophils # (Auto) 0.1 Basophils # (Auto) 0.1 CBC Comment DIFF FINAL Differential Comment Sodium Level 138 Potassium Level 4.1 Chloride Level 104 Carbon Dioxide Level 23.3 Anion Gap 11 Blood Urea Nitrogen 23 Creatinine 0.88 Estimat Glomerular Filtration 82 Rate Random Glucose 121 Calcium Level 7.9 Magnesium Level 2.5 (Lee Ann Chavez) Assessment and Plan Assessment: (1) Ischemic leg Status: Acute Plan S/P L AKA Healing well w/o complications Pain controlled Plan Stump Stocking to be placed by pharmacy technician per diem (OPC) Pt will need post op Rehabilitation from our standpoint. Arranged for post op f/u w/ staple removal Lee Ann MOORE [facility] [phone] Discharge Planning Will see patient in our out patient clinic in 5W Appointment time and date was given to patient (Lee Ann Chavez) Plan I agree with above A/P. Discharge to rehab when ready. Jose Armando Peres DO, CHRISTOPH (Jose Armando Peres DO) Lee Ann Chavez Sep 19, 2016 12:21 Jose Armando Peres DO Sep 19, 2016 13:30
--- NOTE | 2016-09-19 14:29 | PD.CARD.PN ---
Subjective Subjective Remarks complains of palpitations and chest pressure ([place]) Objective Vital Signs / I&O Vital Signs Date Time Temp Pulse Resp B/P Pulse Ox O2 Delivery O2 Flow Rate FiO2 09/19/16 12:00 97.7 96 20 140/68 94 09/19/16 09:13 98 Nasal Cannula 2.00 09/19/16 08:00 97.6 97 20 130/68 100 09/19/16 04:00 98.0 74 20 128/60 100 09/18/16 20:00 75 09/18/16 20:00 98.2 70 20 115/59 100 09/18/16 18:44 98 09/18/16 16:00 98.1 65 20 102/59 99 09/18/16 16:00 76 I/O 09/18/16 09/18/16 09/18/16 09/19/16 09/19/16 09/19/16 07:00 15:00 23:00 07:00 15:00 23:00 Intake Total 240 ml 700 ml 2 ml Output Total 300 ml 301 ml Balance 240 ml 400 ml -299 ml Intake Oral 240 ml 700 ml IV Total 0 ml 2 ml Output Urine Total 300 ml 300 ml Stool Total 1 ml # Voids 3 # Bowel Movements 1 1 Physical Exam GENERAL: Well-nourished, well-developed patient in no apparent distress. NECK: No JVD. No carotid bruit. CARDIOVASCULAR: IR IR. S1/S2 no murmur, rub, or gallop. RESPIRATORY: No accessory muscle use. Clear to auscultation. Breath sounds equal bilaterally. GASTROINTESTINAL: Abdomen soft, non-tender, nondistended. MUSCULOSKELETAL: Extremities without clubbing, cyanosis, or edema. Laboratory Laboratory Tests Test 09/19/16 05:24 White Blood Count 12.7 TH/MM3 Red Blood Count 3.03 MIL/MM3 Hemoglobin 10.0 GM/DL Hematocrit 29.6 % Mean Corpuscular Volume 97.5 FL Mean Corpuscular Hemoglobin 33.1 PG Mean Corpuscular Hemoglobin 33.9 % Concent Red Cell Distribution Width 15.0 % Platelet Count 249 TH/MM3 Mean Platelet Volume 8.3 FL Neutrophils (%) (Auto) 74.1 % Lymphocytes (%) (Auto) 15.2 % Monocytes (%) (Auto) 8.9 % Eosinophils (%) (Auto) 1.1 % Basophils (%) (Auto) 0.7 % Neutrophils # (Auto) 9.4 TH/MM3 Lymphocytes # (Auto) 1.9 TH/MM3 Monocytes # (Auto) 1.1 TH/MM3 Eosinophils # (Auto) 0.1 TH/MM3 Basophils # (Auto) 0.1 TH/MM3 CBC Comment DIFF FINAL Differential Comment Sodium Level 138 MEQ/L Potassium Level 4.1 MEQ/L Chloride Level 104 MEQ/L Carbon Dioxide Level 23.3 MEQ/L Anion Gap 11 MEQ/L Blood Urea Nitrogen 23 MG/DL Creatinine 0.88 MG/DL Estimat Glomerular Filtration 82 ML/MIN Rate Random Glucose 121 MG/DL Calcium Level 7.9 MG/DL Magnesium Level 2.5 MG/DL ([place]) Assessment and Plan Problem List: (1) ST elevation [place] (STEMI) (2) Atrial fibrillation, chronic (3) Ischemic leg (4) Systolic CHF Assessment and Plan at the time of his STEMI his EF was 25%, we will repeat a limited echo at this time. We will add metoprolol 25 mg BID and go from there. We will decrease Lasix to daily as he is fairly well compensated at this time concerning CHF We will review is DNR status, because if he is truly DNR it would be inappropriate to have Life Vest. (Emmanuel [place]) Assessment and Plan limited echo for repeat EF. last EF was at time of cardiogenic shock. ectopy - PVCs in singlets, couplets, and triplets. + idioventricular rhythm. + afib with aberrancy. Short atrial runs. no NSVT noted recently. add low dose BB. If EF<30% and not DNR, then lifevest if EF > 30% or is DNR, then no lifevest. FU with Dr. gauthier on DC call with further questions (Trev Arauz MD) Problem Qualifiers (1) ST elevation [place] (STEMI): Qualified Code: I21.02 - ST elevation myocardial infarction involving left anterior descending (LAD) coronary artery Emmanuel [place] Sep 19, 2016 14:29 Trev Arauz MD Sep 19, 2016 14:33
--- NOTE | 2016-09-19 19:10 | ECHRPT ---
Indication: EF ASSESSMENT CHF CONCLUSIONS Moderately dilated left ventricle. Wall thickness is normal. The left ventricular systolic function is severely reduced with an estimated ejection fraction in th e range of 25-30%. There is abnormal (paradoxical) septal motion. The left atrial size is moderately dilated. The right atrial size is mildly dilated. Mitral annular calcification is present. Trace mitral valve regurgitation. Aortic valve sclerosis is present. Mild aortic valve regurgitation. The mid to distal anterior, anterolateral, anteroseptal, and apical segments are severely hypokineti c. BP: 140 / 68 HR: 96 Rhythm: Other MEASUREMENTS (Male / Female) Normal Values Technical Quality:Good 2D ECHO LV Diastolic Diameter PLAX 4.6 cm 4.2 - 5.9 / 3.9 - 5.3 cm LV Systolic Diameter PLAX 4.1 cm IVS Diastolic Thickness 1.0 cm 0.6 - 1.0 / 0.6 - 0.9 cm LVPW Diastolic Thickness 0.8 cm 0.6 - 1.0 / 0.6 - 0.9 cm LV Relative Wall Thickness 0.4 RV Internal Dim ED PLAX 2.5 cm LA Systolic Diameter LX 4.8 cm 3.0 - 4.0 / 2.7 - 3.8 cm DOPPLER AV Peak Velocity 233.5 cm/s AV Peak Gradient 21.8 mmHg LVOT Peak Velocity 73.6 cm/s LVOT Peak Gradient 2.2 mmHg Mitral E Point Velocity 71.9 cm/s Mitral A Point Velocity 26.8 cm/s Mitral E to A Ratio 2.7 TR Peak Velocity 280.0 cm/s TR Peak Gradient 31.4 mmHg FINDINGS LEFT VENTRICLE Moderately dilated left ventricle. Wall thickness is normal. The left ventricular systolic function is severely reduced with an estimated ejection fraction in th e range of 25-30%. There is abnormal (paradoxical) septal motion The mid to distal anterior, anterolateral, anteroseptal, and apical segments are severely hypokineti c. RIGHT VENTRICLE Normal right ventricular size and systolic function. LEFT ATRIUM The left atrial size is moderately dilated. RIGHT ATRIUM The right atrial size is mildly dilated. ATRIAL SEPTUM Normal atrial septal thickness without atrial level shunting by limited color doppler interrogation. AORTA The aortic root and proximal ascending aorta are normal in size on limited imaging. MITRAL VALVE Mitral annular calcification is present. Trace mitral valve regurgitation. AORTIC VALVE Aortic valve sclerosis is present. Mild aortic valve regurgitation. Moderate thickening of the aortic valve leaflets. TRICUSPID VALVE Structurally normal tricuspid valve. No tricuspid valve stenosis or regurgitation. PULMONARY VALVE The pulmonary valve is not well visualized. VESSELS The inferior vena cava is normal in size. PERICARDIUM No pericardial effusion. Trev Arauz MD, FACC (Electronically Signed) Final Date:19 September 2016 19:09 Amended: 19 September 2016 19:10
[2016-09-19] MEDS: ATORVASTATIN 40 MG TAB PO SCH (21:27)
[2016-09-19] MEDS: METOPROLOL TARTRATE 25 MG TAB PO SCH (21:27)
[2016-09-20] VITALS (8 sets, daily range): BP systolic 106–130; BP diastolic 51–79; PULSE 56–70; RESP 19–22; TEMP 97–98.3; O2SAT 95–100
[2016-09-20] MEDS: NITROGLYCERIN 2% OINT 1 GM PACKET TOP SCH ×4 (06:24→17:01)
[2016-09-20] MEDS: INSULIN NovoLIN REGULAR SUPPLEMENTAL SCALE SQ SCH ×4 (06:25→20:38)
[2016-09-20] MEDS: ALPRAZolam 0.5 MG TAB PO PRN ×2 (06:25→11:53)
[2016-09-20 08:51] LABS: MEAN CELL VOLUME 96.1 FL (80.0-100.0); MEAN CORPUSCULAR HEMOGLOBIN 32.6 PG (27.0-34.0); MEAN CORPUSCULAR HGB CONC 33.9 % (32.0-36.0); PLATELET COUNT 282 TH/MM3 (150-450); RED BLOOD COUNT 3.02 MIL/MM3 (4.50-5.90); RED CELL DISTRIBUTION WIDTH 14.8 % (11.6-17.2); REVIEW FLAG FINAL; WHITE BLOOD COUNT 12.6 TH/MM3 (4.0-11.0)
[2016-09-20] MEDS: METOPROLOL TARTRATE 25 MG TAB PO SCH ×3 (09:00→20:38)
[2016-09-20] MEDS: DIGOXIN 0.125 MG TAB PO SCH (09:01)
[2016-09-20] MEDS: LACTULOSE SYRUP 20 GM/30 ML CUP PO SCH (09:01)
[2016-09-20] MEDS: CLOPIDOGREL 75 MG TAB PO SCH (09:01)
[2016-09-20] MEDS: POTASSIUM CHLORIDE 10 MEQ CAP PO SCH ×2 (09:02→20:37)
[2016-09-20] MEDS: FUROSEMIDE 40 MG TAB PO SCH (09:04)
[2016-09-20] MEDS: LISINOPRIL 5 MG TAB PO SCH (09:05)
[2016-09-20] MEDS: ASPIRIN 81 MG CHEW TAB PO SCH (09:05)
--- NOTE | 2016-09-20 09:59 | HHI.PR ---
Subjective Remarks still with chest tightness and some subjective sob. Objective Vitals heart irreg lung cta abd s/nt ext left aka. Vital Signs Date Time Temp Pulse Resp B/P Pulse Ox O2 Delivery O2 Flow Rate FiO2 09/20/16 09:19 97 Nasal Cannula 2.00 09/20/16 08:00 97.0 63 22 110/54 97 09/20/16 04:00 97.3 65 20 122/56 97 09/20/16 04:00 Nasal Cannula 2.00 09/20/16 00:09 Nasal Cannula 2.00 09/20/16 00:09 97.4 56 20 120/60 95 09/19/16 20:45 Nasal Cannula 2.00 09/19/16 20:45 97.5 80 22 125/60 98 09/19/16 20:19 70 09/19/16 20:14 45 09/19/16 16:46 97 Nasal Cannula 2.00 09/19/16 16:00 97.8 86 20 134/66 98 09/19/16 13:00 20 09/19/16 12:00 97.7 96 20 140/68 94 09/19/16 09/19/16 09/20/16 15:00 23:00 07:00 Intake Total 480 ml Output Total 150 ml Balance 330 ml Intake Oral 480 ml Output Urine Total 150 ml # Voids 4 2 # Bowel Movements 1 Result Diagram: 09/20/16 0818 09/19/16 0524 Imaging Last Impressions Aorta w/Runoff CTA 09/08/16 0000 Signed Impressions: Service Date/Time: August 16:35 - CONCLUSION: 1. Acute thrombus extending from left common femoral artery to the popliteal artery and below the knee vessels with basically no runoff to the left ankle. 2. Bilateral pleural effusions. 3. 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 Lidia Hager MD Chest X-Ray 09/07/16 0000 Signed Impressions: Service Date/Time: Wednesday, September 07, 2016 04:37 - CONCLUSION: Improved. Trace bibasilar atelectasis currently seen. Elias Cordero MD Lower Extremity Ultrasound 09/06/16 0000 Signed Impressions: Service Date/Time: Tuesday, September 06, 2016 21:43 - CONCLUSION: No DVT. Alistair Chaparro Jr., MD A/P Problem List: (1) ST elevation [place] (STEMI) Status: Acute Plan: - Pt with cad presented with cardiogenic shock - STEMI s/p LAD stent - balloon pump now removed. 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 pt was having diarrhea cont asa/plavix await stablization before d/c to snf. 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 Castellanos (09/13/16) - percocet - constipation precautions - post op mgmt per Surgery - lovenox 09/14 - PT (3) Systolic dysfunction with acute on chronic heart failure Status: Acute Plan: see above (4) Afib Status: Chronic Plan: - see above (5) CAD (coronary artery disease) Status: Chronic Plan: - see above (6) Depression Status: Chronic Problem Qualifiers (1) ST elevation [place] (STEMI): Qualified Code: I21.02 - ST elevation myocardial infarction involving left anterior descending (LAD) coronary artery Lukas Rangel MD Sep 20, 2016 09:59
[2016-09-20] MEDS: ENOXAPARIN SODIUM 30 MG/0.3 ML SYRINGE SQ SCH (11:53)
--- NOTE | 2016-09-20 15:18 | HHI.HCPN ---
Met with Mr. Horn. He is currently lying in bed, short of breath, verbalizes his nasal canula just fell off however it was seen sitting on his bedside table. Assisted him in putting it back on. Verbalizes immediate relief of symptom. Inquired about how he's feeling today, he tells me he has two episodes today. Tells me he had "another heart attack". With further discussion he indicates he "went golfing this morning with friends, I didn't want to but they said we were just going to hit some balls". Further clarifies this is when he had the heart attack. Confusion continues, unable to discuss community DNR, goals of care, advanced directives, etc. Palliative care will continue to follow throughout hospitalization. China Chaparro, THIOKOL OPERATOR Sep 20, 2016 15:18
[2016-09-20] MEDS ORDERED: LORazepam 2 MG/ML VIAL IV PUSH PRN (17:45)
[2016-09-20] MEDS: oxyCODONE/ACETAMINOPHEN 10 MG/325 MG TAB PO PRN (20:37)
[2016-09-20] MEDS: ATORVASTATIN 40 MG TAB PO SCH (20:37)
[2016-09-21] VITALS: BP 118/73; PULSE 87; RESP 17; TEMP 97.6; O2SAT 98
[2016-09-21] MEDS: NITROGLYCERIN 2% OINT 1 GM PACKET TOP SCH ×3 (00:34→11:13)
[2016-09-21] MEDS: ALPRAZolam 0.5 MG TAB PO PRN ×2 (00:34→08:53)
[2016-09-21 04:00] VITALS: BP 115/58; PULSE 60; RESP 17; TEMP 97.8; O2SAT 95
[2016-09-21] MEDS: INSULIN NovoLIN REGULAR SUPPLEMENTAL SCALE SQ SCH ×2 (05:58→11:21)
[2016-09-21 08:00] VITALS: BP 116/54; PULSE 54; RESP 20; TEMP 97.4; O2SAT 98
--- NOTE | 2016-09-21 08:42 | HHI.PR ---
Subjective Remarks pt eager to get on with rehab. he is dnr. Objective Vitals heart irreg lung ctd abd s/nt ext left aka..abiodun intact Vital Signs Date Time Temp Pulse Resp B/P Pulse Ox O2 Delivery O2 Flow Rate FiO2 09/21/16 04:00 97.8 60 17 115/58 95 09/21/16 00:00 97.6 87 17 118/73 98 09/20/16 20:32 68 09/20/16 20:00 98.2 63 19 106/51 96 09/20/16 19:47 Nasal Cannula 2.00 09/20/16 16:00 98.3 65 20 106/57 99 09/20/16 13:00 Nasal Cannula 2.00 09/20/16 12:00 97.4 70 20 130/79 100 09/20/16 09:19 97 Nasal Cannula 2.00 09/20/16 09/20/16 09/21/16 15:00 23:00 07:00 Intake Total 2 ml 180 ml 110 ml Output Total 120 ml 360 ml Balance 2 ml 60 ml -250 ml Intake Oral 0 ml 180 ml 110 ml IV Total 2 ml Output Urine Total 120 ml 360 ml # Voids 2 # Bowel Movements 2 1 2 Result Diagram: 09/20/16 0818 09/19/16 0524 Imaging Last Impressions Aorta w/Runoff CTA 09/08/16 0000 Signed Impressions: Service Date/Time: August 16:35 - CONCLUSION: 1. Acute thrombus extending from left common femoral artery to the popliteal artery and below the knee vessels with basically no runoff to the left ankle. 2. Bilateral pleural effusions. 3. 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 Lidia Hager MD Chest X-Ray 09/07/16 0000 Signed Impressions: Service Date/Time: Wednesday, September 07, 2016 04:37 - CONCLUSION: Improved. Trace bibasilar atelectasis currently seen. Elias Cordero MD Lower Extremity Ultrasound 09/06/16 0000 Signed Impressions: Service Date/Time: Tuesday, September 06, 2016 21:43 - CONCLUSION: No DVT. Alistair Chaparro Jr., MD A/P Problem List: (1) ST elevation [place] (STEMI) Status: Acute Plan: - Pt with cad presented with cardiogenic shock - STEMI s/p LAD stent - balloon pump now removed. 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 pt was having diarrhea cont asa/plavix d/c to snf with cardiology f/u. vascular f/u 3-4 weeks with staple removal. 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 Castellanos (09/13/16) - percocet - constipation precautions - post op mgmt per Surgery - lovenox 09/14 - PT (3) Systolic dysfunction with acute on chronic heart failure Status: Acute Plan: see above (4) Afib Status: Chronic Plan: - see above (5) CAD (coronary artery disease) Status: Chronic Plan: - see above (6) Depression Status: Chronic Problem Qualifiers (1) ST elevation [place] (STEMI): Qualified Code: I21.02 - ST elevation myocardial infarction involving left anterior descending (LAD) coronary artery Lukas Rangel MD Sep 21, 2016 08:42
[2016-09-21] MEDS ORDERED: FURO40TA PO (08:45)
[2016-09-21] MEDS: POTASSIUM CHLORIDE 10 MEQ CAP PO SCH (08:52)
[2016-09-21] MEDS: METOPROLOL TARTRATE 25 MG TAB PO SCH (08:52)
[2016-09-21] MEDS: DIGOXIN 0.125 MG TAB PO SCH (08:52)
[2016-09-21] MEDS: FUROSEMIDE 40 MG TAB PO SCH (08:52)
[2016-09-21] MEDS: CLOPIDOGREL 75 MG TAB PO SCH (08:53)
[2016-09-21] MEDS: ASPIRIN 81 MG CHEW TAB PO SCH (08:53)
[2016-09-21] MEDS: LISINOPRIL 5 MG TAB PO SCH (08:54)
[2016-09-21] MEDS: oxyCODONE/ACETAMINOPHEN 10 MG/325 MG TAB PO PRN (09:05)
[2016-09-21 09:07] VITALS: PULSE 85
[2016-09-21 10:37] LABS: POTASSIUM 4.3 MEQ/L (3.5-5.1)
--- NOTE | 2016-09-21 10:52 | HHI.HCPN ---
Reason for visit a. To assist with evaluation and management of symptoms including: pain; dyspnea, depression b. To assist medical decision maker(s) with: better understanding of current medical conditions; weighing benefits/burdens of medical treatment options; making medical treatment decisions. . Subjective/Interval History Pt appears sleepy, but arousable. States he wanted to sleep, and again some confusion. . Family/friend interactions Spoke with Health Care Surrogate Ms. Jefferson, and confirms that pt at times is confused, and fluctuates. Goals of care review, and she state she will honor his wish to go to rehab and try, and also his DNR. I left the [email or web address] DNR form in front of the chart, in which she is amenable to to sign. Discussed with Ms. Jefferson that we will try rehab, but I worry, that he may not tolerate well and eventually come back to the hospital. Discussed option of hospice in which she seems open to. Advance Directives Living Will: Copy in medical record Health Care Surrogate: Copy in medical record Durable Power of Strategic Planning Analyst: Never completed Advance Directive Specifics Date completed: Living will and designation of health care surrogate in EMR dated 08/23/16. . Health Care Surrogate(s): Designated health care surrogate is Fabi Pickett (friend) . Documented care wishes: Living will indicates he would not want life prolonging measures if he were found to be in a persistent vegetative state. The living will has not checked the boxed for terminal condition or end-stage condition. . Objective Vital Signs Date Time Temp Pulse Resp B/P Pulse Ox O2 Delivery O2 Flow Rate FiO2 09/21/16 09:07 Nasal Cannula 2.00 09/21/16 09:07 85 09/21/16 08:00 97.4 54 20 116/54 98 Manual Cuff/Auscultation 09/21/16 04:00 97.8 60 17 115/58 95 09/21/16 00:00 97.6 87 17 118/73 98 09/20/16 20:32 68 09/20/16 20:00 98.2 63 19 106/51 96 09/20/16 19:47 Nasal Cannula 2.00 09/20/16 16:00 98.3 65 20 106/57 99 09/20/16 13:00 Nasal Cannula 2.00 09/20/16 12:00 97.4 70 20 130/79 100 Intake & Output 09/21/16 09/21/16 06:59 18:59 Intake Total 290 ml Output Total 480 ml Balance -190 ml Intake Oral 290 ml Output Urine Total 480 ml # Bowel Movements 3 Physical Exam CONSTITUTIONAL/GENERAL: This is an adequately nourished patient in a general medical bed. No apparent distress. TUBES/LINES/DRAINS: Peripheral IV; Albrgiht; NC 02 SKIN: No jaundice, rashes, or lesions. Ecchymoses on upper extremities. Stump not examined. HEAD: Atraumatic. Normocephalic. EYES: Pupils equal and round. Extraocular motions intact. No scleral icterus. No injection or drainage. Fundi not examined. ENT: Hearing grossly normal. Nose without bleeding or purulent drainage. Throat without visible erythema, exudates, masses, or lesions. NECK: Trachea midline. Supple, nontender. CARDIOVASCULAR: Regular rate and rhythm without murmurs, gallops, or rubs. No JVD. RESPIRATORY/CHEST: Symmetric, unlabored respirations. Clear to auscultation. Breath sounds equal bilaterally. No wheezes, rales, or rhonchi. GASTROINTESTINAL: Abdomen soft, non-tender, nondistended. No hepato-splenomegaly , or palpable masses. No guarding. Bowel sounds present. GENITOURINARY: Without palpable bladder distension. MUSCULOSKELETAL: LLE AKA. Extremities otherwise without clubbing, cyanosis, or edema. LYMPHATICS: Not examined. NEUROLOGICAL: Awake and alert. Motor and sensory grossly within normal limits. Follows commands. Cognitively sharp. Moves all extremities. PSYCHIATRIC: No obvious anxiety. More upbeat today. No apparent hallucinations or other psychotic thought process. . Diagnostic Tests Laboratory Laboratory Tests Test 09/19/16 09/20/16 09/21/16 05:24 08:18 08:22 White Blood Count 12.7 TH/MM3 12.6 TH/MM3 (4.0-11.0) (4.0-11.0) Red Blood Count 3.03 MIL/MM3 3.02 MIL/MM3 (4.50-5.90) (4.50-5.90) Hemoglobin 10.0 GM/DL 9.9 GM/DL (13.0-17.0) (13.0-17.0) Hematocrit 29.6 % 29.0 % (39.0-51.0) (39.0-51.0) Mean Corpuscular Volume 97.5 FL 96.1 FL (80.0-100.0) (80.0-100.0) Mean Corpuscular Hemoglobin 33.1 PG 32.6 PG (27.0-34.0) (27.0-34.0) Mean Corpuscular Hemoglobin 33.9 % 33.9 % Concent (32.0-36.0) (32.0-36.0) Red Cell Distribution Width 15.0 % 14.8 % (11.6-17.2) (11.6-17.2) Platelet Count 249 TH/MM3 282 TH/MM3 (150-450) (150-450) Mean Platelet Volume 8.3 FL 8.0 FL (7.0-11.0) (7.0-11.0) Neutrophils (%) (Auto) 74.1 % (16.0-70.0) Lymphocytes (%) (Auto) 15.2 % (9.0-44.0) Monocytes (%) (Auto) 8.9 % (0.0-8.0) Eosinophils (%) (Auto) 1.1 % (0.0-4.0) Basophils (%) (Auto) 0.7 % (0.0-2.0) Neutrophils # (Auto) 9.4 TH/MM3 (1.8-7.7) Lymphocytes # (Auto) 1.9 TH/MM3 (1.0-4.8) Monocytes # (Auto) 1.1 TH/MM3 (0-0.9) Eosinophils # (Auto) 0.1 TH/MM3 (0-0.4) Basophils # (Auto) 0.1 TH/MM3 (0-0.2) CBC Comment DIFF FINAL Differential Comment Sodium Level 138 MEQ/L 138 MEQ/L (136-145) (136-145) Potassium Level 4.1 MEQ/L 4.3 MEQ/L (3.5-5.1) (3.5-5.1) Chloride Level 104 MEQ/L 105 MEQ/L (98-107) (98-107) Carbon Dioxide Level 23.3 MEQ/L (21.0-32.0) Anion Gap 11 MEQ/L (5-15) Blood Urea Nitrogen 23 MG/DL (7-18) Creatinine 0.88 MG/DL (0.60-1.30) Estimat Glomerular Filtration 82 ML/MIN (>89) Rate Random Glucose 121 MG/DL (74-106) Calcium Level 7.9 MG/DL (8.5-10.1) Magnesium Level 2.5 MG/DL (1.5-2.5) Result Diagram: 09/20/1681709/21/16821 Microbiology Microbiology Date/Time Procedure Status Source Growth 09/20/16 07:15 Cyclospora Exam Resulted Stool Stool Pending 09/20/16 07:15 Cryptosporidium Exam Resulted Stool Stool Pending 09/20/16 07:15 Stool Pus ([facility]) - Final Resulted Stool Stool NO WBC'S SEEN 09/20/16 07:15 Giardia Antigen ([facility]) Resulted Stool Stool Pending 09/20/16 07:15 Stool Occult Blood ([facility]) - Final Resulted Stool Stool HEMOCCULT NEGATIVE Procedures ==Cardiac stent ==Intra-aortic balloon pump == Left Lower extremity vascular procedure * 1. BK pop/TPT endarterectomy and patch angioplasty * 2. SUPERVISING FILM OR VIDEOTAPE EDITOR endarterectomy and patch angioplasty * 3. L LE angiogram * 4. Embolectomy of popliteal artery * 5. embolectomy of peroneal artery == Left AKA . Assessment and Plan Disease Oriented Problem List: (1) ST elevation VT (STEMI) (2) Systolic dysfunction with acute on chronic heart failure (3) Atrial fibrillation, chronic (4) CAD (coronary artery disease) (5) Diarrhea (6) Chronic back pain (7) Peripheral arterial disease Comment: s/p left AKA . Symptom Scale: (1) Pain 0-10 Scale: 6 Comment: Has chronic back pain; pain from recent surgeries (AKA; vascular procedures). Much improved. . (2) Dyspnea 0-10 Scale: Unable to quantify Comment: Comfortable at rest on 02 via [place]. . (3) Depression 0-10 Scale: Unable to quantify Comment: Reports history of depression prior to his recent hospitalization and says he has been on anti-depressants before which have helped. . Pertinent Non-Medical Issues Psychosocial: ; estranged from biological children; very close with one of his stepsons (lives in [place]); log chain feeder is a friend. Lonely. Spiritual: Raised [employer]. Not currently active. 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 Friend -- Fabi Pickett -- is designated surrogate. Ethical issues impacting care: Patient is currently capacitated. . Important Contacts Fabi Pickett (log chain feeder/ friend) [phone] . Prognosis Patient has been on disability for severe chronic back pain since age 51. He was limited in mobility from this problem alone. He has severe atherosclerotic disease impacting both coronary and peripheral arteries. He has a low ejection fraction. He just suffered and VT, underwent stenting, developed an acute "cold" left lower extremity, underwent vascular surgery, but ultimately required a left AKA. There was a [facility] called 09/15/16 for chest pain. Given his advanced age and what he has recently been through , I think it is unlikely that he will recover well enough to go home and be independent. Patient wants to continue to fight and wants rehab at this time. He understands that at such time he gets tired of the lin, he can transition to comfort measures. . Code Status: No Code Plan == Code Status : NO CODE. I personally spoke with the patient. He does not want additional shock , chest compressions, intubation/mechanical ventilation at this time. Today I have spoken with [facility] and she will honor's pt wish to be a DNR. == Decision making: I suspect pt's capacity flutuates, and [facility], notice the past few days, even monday when pt visit, pt at times is confused. Today, pt appears more confused and sleepy, and at this time I do not feel he has capacity to weigh risk and benefits of treatment. == Goals of medical treatment: Pt has expressed to palliative clearly before, when he was capacitated, for aggressive care short of resuscitation. He is hoping to become stronger in rehab and get home. He understands that a transition to "comfort measures only" is available to him at such time when he feels the burdens of ongoing aggressive care outweigh the benefits. Today spoke with [facility], Ms. Jefferson. Ms. Jefferson, and confirms that pt at times is confused, and fluctuates. Goals of care review, and she state she will honor his wish to go to rehab and try, and also his DNR. I left the [facility] DNR form in front of the chart, in which she is amenable to to sign. Discussed with Ms. Jefferson that we will try rehab, but I worry, that he may not tolerate well and eventually come back to the hospital. Discussed option of hospice in which she seems open to, should he need to return to the hospital and decompensate. == Pain: d. He has prn oxycodone/acetaminophen available to him. No further recommendations at this time. == Dyspnea: Currently, he is comfortable at rest with 02 via [place]. No further recommendations at this time. == Given his goals of DNR status, recommend he be sent to rehab with a completed [facility] DNR Order. [facility] will sign it today, which is in front of the chart. == Palliative care will continue to follow. Addendum Pt is being discharged before health care surrogate arrives. DNR will be sent with patient to facility, called [facility], and she is amenable to signing community DNR in facility. Humberto Arnett MD Sep 21, 2016 10:52
[2016-09-21] MEDS: ENOXAPARIN SODIUM 30 MG/0.3 ML SYRINGE SQ SCH (11:21)
[2016-09-21 11:50] VITALS: O2SAT 96
[2016-09-21 13:05] LABS: BICARBONATE 23.6 MEQ/L (21.0-32.0); MAGNESIUM 2.6 MG/DL (1.5-2.5)
[2016-09-21 13:20] LABS: DIGOXIN 0.7 NG/ML (0.8-2.0)
== END 2016-09-21 12:40 | DRG 270 ==
LOC: NEPC 18:10 → HIMW 21:50 → N04A 09-14 15:02 → N04B 09-20 11:01
PROVIDERS: ADMIT Hospitalist; ATTEND Hospitalist
PROC: 4A023N7 Measurement of Cardiac Sampling and Pressure, Left Heart, Percutaneous Approach (ICD-10-PCS; principal; 2016-09-06)
PROC: 5A02210 Assistance with Cardiac Output using Balloon Pump, Continuous (ICD-10-PCS; 2016-09-06)
PROC: 02703DZ Dilation of Coronary Artery, One Artery with Intraluminal Device, Percutaneous Approach (ICD-10-PCS; 2016-09-06)
PROC: B2111ZZ Fluoroscopy of Multiple Coronary Arteries using Low Osmolar Contrast (ICD-10-PCS; 2016-09-06)
PROC: B41G1ZZ Fluoroscopy of Left Lower Extremity Arteries using Low Osmolar Contrast (ICD-10-PCS; 2016-09-06)
PROC: 06HN33Z Insertion of Infusion Device into Left Femoral Vein, Percutaneous Approach (ICD-10-PCS; 2016-09-09)
PROC: 02HV33Z Insertion of Infusion Device into Superior Vena Cava, Percutaneous Approach (ICD-10-PCS; 2016-09-09)
PROC: 04CL0ZZ Extirpation of Matter from Left Femoral Artery, Open Approach (ICD-10-PCS; 2016-09-10)
PROC: 04UL0KZ Supplement Left Femoral Artery with Nonautologous Tissue Substitute, Open Approach (ICD-10-PCS; 2016-09-10)
PROC: 04CL0ZZ Extirpation of Matter from Left Femoral Artery, Open Approach (ICD-10-PCS; 2016-09-10)
PROC: 3E043XZ Introduction of Vasopressor into Central Vein, Percutaneous Approach (ICD-10-PCS; 2016-09-10)
PROC: 04CU0ZZ Extirpation of Matter from Left Peroneal Artery, Open Approach (ICD-10-PCS; 2016-09-11)
PROC: 0Y6D0Z2 Detachment at Left Upper Leg, Mid, Open Approach (ICD-10-PCS; 2016-09-13)
DX: I21.3 ST elevation (STEMI) myocardial infarction of unspecified site (principal); I50.23 Acute on chronic systolic (congestive) heart failure; T79.0XXA Air embolism (traumatic), initial encounter; R57.0 Cardiogenic shock; I11.0 Hypertensive heart disease with heart failure; I47.2 Ventricular tachycardia; D62 Acute posthemorrhagic anemia; I27.2 Other secondary pulmonary hypertension; I47.1 Supraventricular tachycardia; I82.91 Chronic embolism and thrombosis of unspecified vein; D69.6 Thrombocytopenia, unspecified; I48.2 Chronic atrial fibrillation; I44.7 Left bundle-branch block, unspecified; I25.10 Atherosclerotic heart disease of native coronary artery without angina pectoris; I25.5 Ischemic cardiomyopathy; Z79.01 Long term (current) use of anticoagulants; E78.5 Hyperlipidemia, unspecified; I25.2 Old myocardial infarction; I99.8 Other disorder of circulatory system; E78.00 Pure hypercholesterolemia, unspecified; G89.29 Other chronic pain; M54.9 Dorsalgia, unspecified; I73.9 Peripheral vascular disease, unspecified; J44.9 Chronic obstructive pulmonary disease, unspecified; K21.9 Gastro-esophageal reflux disease without esophagitis; K22.70 Barrett's esophagus without dysplasia; K59.00 Constipation, unspecified; M54.16 Radiculopathy, lumbar region; N40.0 Benign prostatic hyperplasia without lower urinary tract symptoms; R09.02 Hypoxemia; R06.89 Other abnormalities of breathing; Z66 Do not resuscitate; Z87.891 Personal history of nicotine dependence; F41.8 Other specified anxiety disorders; Z51.5 Encounter for palliative care; Z79.82 Long term (current) use of aspirin; Z79.899 Other long term (current) drug therapy; Z86.73 Personal history of transient ischemic attack (TIA), and cerebral infarction without residual deficits; Z87.19 Personal history of other diseases of the digestive system
CPT/HCPCS: 33967; 36556; 71010; 75635; 75710; 76937; 80048; 80053; 80061; 80162; 81001; 82272; 82435; 82550; 82552; 82565; 82947; 82948; 83735; 83880; 84100; 84132; 84155; 84295; 84484; 84520; 85002; 85025; 85027; 85610; 85730; 86850; 86900; 86901; 86920; 87205; 87207; 87328; 87329; 87641; 88307; 88311; 92941; 92950; 93005; 93306; 93308; 93454; 93970; 94150; 94640; 94664; 96365; 96375; C1725; C1757; C1768; C1769; C1876; C1887; C1893; J0131; J0153; J0171; J1160; J1170; J1644; J1650; J1940; J2060; J2270; J2370; J2405; J3010; J3370; J7030; J7613; Q9967

== ENCOUNTER 2016-09-30 10:04 | Observation (INO) | payer MEDICARE ==
[2016-09-30] VITALS (11 sets, daily range): BP systolic 134–196; BP diastolic 60–89; PULSE 54–66; RESP 12–22; TEMP 97.6–97.8; O2SAT 98–100
[~2016-09-30] VITALS: Ht 180.3 cm; Wt 86.5 kg
[~2016-09-30 10:04] MED LIST changes: +ASPI81CH25 PO; +DIGO0.12 PO; +ENOX30P SQ; +LISI-519 PO; +METO25TA3 PO; +NORC5TAB PO; -PANT20 PO; +PLAV75TA29 PO; -TRAM50TA PO; -WARF-18 PO; -WARF-23 PO
[2016-09-30] MEDS ORDERED: SODIUM CHLORIDE 0.9% FLUSH 5 ML FLUSH IV FLUSH PRN (10:30)
--- NOTE | 2016-09-30 10:51 | PD ---
HPI Chief Complaint: Altered Mental Status Time Seen by Provider: 10:27 Travel History International Travel<30 days: No Contact w/Intl Traveler<30days: No Traveled to known affect area: No History of Present Illness HPI This is an 86-year-old male who recently was hospitalized in the setting of a STEMI having been on an intra-aortic balloon pump, who currently was at rehabilitation when today he started to be more lethargic than normal. At baseline he is somewhat confused and for a long time has been debilitated due to chronic back pain. Patient doesn't provide much history. PFSH Past Medical History Hx Anticoagulant Therapy: Yes (COUMADIN) Arthritis: Yes Asthma: Yes Atrial Fibrillation: Yes Autoimmune Disease: No Blood Disorders: No Anxiety: Yes Depression: No Heart Rhythm Problems: Yes (ATRIAL FIBRILATION ) Cancer: No Cardiac Catheterization: Yes Cardiovascular Problems: Yes High Cholesterol: Yes Chest Pain: Yes Congestive Heart Failure: Yes COPD: Yes Cerebrovascular Accident: Yes (TIA) Coronary Artery Disease: Yes Diabetes: Yes Patient Takes Glucophage: No Diminished Hearing: No Endocrine: No Gastrointestinal Disorders: No GERD: Yes Glaucoma: No Genitourinary: No Headaches: Yes Hepatitis: No Hiatal Hernia: No Heparin Induced Thrombocytopen: No Hypertension: Yes Immune Disorder: No Implanted Vascular Access Dvce: No Kidney Stones: No Medical other: Yes (ARTHRITIS, BACK PROBLEMS, HX BRAIN CONCUSSION) Musculoskeletal: Yes (LOWER BACK PAIN) Neurologic: No Psychiatric: No Reproductive: No Respiratory: Yes (COPD) Integumentary: No Immunizations Current: Yes Migraines: Yes Myocardial Infarction: Yes (X3) Renal Failure: No Seizures: No Sleep Apnea: No Thyroid Disease: No Ulcer: No PNEUMOCCOCAL Vaccine (Year): 2010 Past Surgical History Abdominal Surgery: No AICD: No Appendectomy: No Arteriovenous Shunt: No Body Medical Devices: PLATE IN RIGHT WRIST, 2 HEART STENTS, LT HIP Cardiac Surgery: No Cholecystectomy: No Coronary Artery Bypass Graft: No Coronary Stent: Yes (X2; MOST RECENT WAS 2009) Ear Surgery: No Eye Surgery: Yes (LEFT CATARACT) Insulin Pump: No Joint Replacement: No Neurologic Surgery: No Oral Surgery: Yes Pacemaker: No Thoracic Surgery: No Tonsillectomy: Yes Other Surgery: Yes (RIGHT AKA-2017) Social History Alcohol Use: No Tobacco Use: No Substance Use: No Allergies-Medications (Allergen,Severity, Reaction): Coded Allergies: Penicillin (Verified Allergy, Severe, EDEMA, HIVES, 09/30/16) Reported Meds & Prescriptions Reported Meds & Active Scripts Active Furosemide 40 Mg Tab 40 Mg PO DAILY [place] (Hydrocodone-Acetaminophen) 5-325 mg Tab 1 Tab PO Q6H PRN Metoprolol Tartrate 25 Mg Tab 12.5 Mg PO Q12HR Lisinopril 5 Mg Tab 2.5 Mg PO DAILY Digoxin 0.125 Mg Tab 0.125 Mg PO DAILY Plavix (Clopidogrel Bisulfate) 75 Mg Tab 75 Mg PO DAILY Aspirin Low Strength (Aspirin) 81 Mg Chew 81 Mg PO DAILY Reported Xanax (Alprazolam) 0.5 Mg Tab 0.5 Mg PO Q4H Gabapentin 100 Mg Cap 100 Mg PO BID Celexa (Citalopram Hydrobromide) 20 Mg Tab 20 Mg PO DAILY Novolog Inj (Insulin Aspart) 1,000 Unit/10 Ml Vial 0 SQ ACHS Sliding Scale: 150-199=1 unit, 200-249=3 units, 250-299=5 units, 300-349=7 units, > 349=9 units Ventolin Hfa 18 GM Inh (Albuterol Sulfate) 90 Mcg/Act Aer 2 Puff INH Q4-6H PRN Potassium Chloride ER (Potassium Chloride) 10 Meq Cap 10 Meq PO BID Atorvastatin (Atorvastatin Calcium) 40 Mg Tab 40 Mg PO HS Review of Systems ROS Limitations: Altered Mental Status Physical Exam Narrative GENERAL: Chronically unwell-appearing. SKIN: Left AKA incision is clean dry and intact. HEAD: Atraumatic. Normocephalic. EYES: Pupils equal and round. No injection or drainage. ENT: Dry mucous membranes. NECK: Trachea midline. CARDIOVASCULAR: Regular rate and rhythm. No murmur appreciated. RESPIRATORY: Clear to auscultation. Breath sounds equal bilaterally. GASTROINTESTINAL: Abdomen soft, non-tender, nondistended. MUSCULOSKELETAL: No obvious deformities. NEUROLOGICAL: Moaning and saying some unintelligible words. Very somnolent. No obvious cranial nerve deficits. Moving all extremities. Follows commands. Data Data Last Documented VS Vital Signs Date Time Temp Pulse Resp B/P Pulse Ox O2 Delivery O2 Flow Rate FiO2 09/30/16 10:32 100 Nasal Cannula 2.0 09/30/16 10:27 74 09/30/16 10:27 14 196/86 09/30/16 10:14 97.6 Orders Electrocardiogram (09/30/16 10:27) Complete Blood Count With Diff (09/30/16 10:27) Comprehensive Metabolic Panel (09/30/16 10:27) Prothrombin Time / Inr (Pt) (09/30/16 10:27) Act Partial Throm Time (Ptt) (09/30/16 10:27) Troponin I (09/30/16 10:27) Urinalysis - C+S If Indicated (09/30/16 10:27) Ct Brain W/O Iv Contrast(Rout) (09/30/16 10:27) Blood Glucose (09/30/16 10:27) Ecg Monitoring (09/30/16 10:27) Iv Access Insert/Monitor (09/30/16 10:27) Cath For Specimen (09/30/16 10:27) Oximetry (09/30/16 10:27) Sodium Chloride 0.9% Flush (Ns Flush) (09/30/16 10:30) Blood Culture (09/30/16 10:27) Lactic Acid (09/30/16 10:27) Digoxin (09/30/16 10:34) Labs Laboratory Tests Test 09/30/16 09/30/16 10:30 10:45 White Blood Count 9.7 TH/MM3 Red Blood Count 3.88 MIL/MM3 Hemoglobin 12.5 GM/DL Hematocrit 38.4 % Mean Corpuscular Volume 99.0 FL Mean Corpuscular Hemoglobin 32.2 PG Mean Corpuscular Hemoglobin 32.5 % Concent Red Cell Distribution Width 16.3 % Platelet Count 207 TH/MM3 Mean Platelet Volume 8.1 FL Neutrophils (%) (Auto) 77.9 % Lymphocytes (%) (Auto) 12.6 % Monocytes (%) (Auto) 7.3 % Eosinophils (%) (Auto) 1.2 % Basophils (%) (Auto) 1.0 % Neutrophils # (Auto) 7.6 TH/MM3 Lymphocytes # (Auto) 1.2 TH/MM3 Monocytes # (Auto) 0.7 TH/MM3 Eosinophils # (Auto) 0.1 TH/MM3 Basophils # (Auto) 0.1 TH/MM3 CBC Comment DIFF FINAL Differential Comment Prothrombin Time 12.7 SEC Prothromb Time International 1.1 RATIO Ratio Activated Partial 26.2 SEC Thromboplast Time Sodium Level 139 MEQ/L Potassium Level 4.6 MEQ/L Chloride Level 104 MEQ/L Carbon Dioxide Level 26.8 MEQ/L Anion Gap 8 MEQ/L Blood Urea Nitrogen 20 MG/DL Creatinine 0.95 MG/DL Estimat Glomerular Filtration 75 ML/MIN Rate Random Glucose 122 MG/DL Lactic Acid Level 1.2 mmol/L Calcium Level 7.9 MG/DL Total Bilirubin 0.8 MG/DL Aspartate Amino Transf 39 U/L (AST/SGOT) Alanine Aminotransferase 68 U/L (ALT/SGPT) Alkaline Phosphatase 98 U/L Troponin I 0.08 NG/ML Total Protein 6.0 GM/DL Albumin 3.0 GM/DL Digoxin Level 0.5 NG/ML Urine Color YELLOW Urine Turbidity CLEAR Urine pH 5.5 Urine Specific Maria Stein 1.017 Urine Protein TRACE mg/dL Urine Glucose (UA) NEG mg/dL Urine Ketones NEG mg/dL Urine Occult Blood NEG Urine Nitrite NEG Urine Bilirubin NEG Urine Urobilinogen LESS THAN 2.0 MG/DL Urine Leukocyte Esterase NEG Urine RBC LESS THAN 1 /hpf Urine WBC LESS THAN 1 /hpf Urine Mucus FEW /lpf Microscopic Urinalysis Comment CULT NOT INDICATED MDM Medical Decision Making Medical Screen Exam Complete: Yes Emergency Medical Condition: Yes Medical Record Reviewed: Yes (pt was admitted to the hospital recently in the setting of a myocardial infarction. Palliative care had been following the patient at the time of this hospitalization and spoke to care surrogate regarding possible hospice and she seemed open to it.) Interpretation(s) EKG: Bradycardia, PVCs, atrial fibrillation No leukocytosis Mild anemia Troponin is 0.08 Lactic acid is 1.2 Digoxin is 0.5 Urinalysis: No infection Last [address] 09/30/16 1027 Signed Impressions: Service Date/Time: Friday, September 30, 2016 12:13 - CONCLUSION: 1. Senescent changes. 2. No acute intracranial abnormality. Kenneth Choudhary MD Differential Diagnosis Intracranial hemorrhage, ischemic stroke, delirium, polypharmacy, urinary tract infection Narrative Course This is an 86-year-old male who presents to the emergency department from rehabilitation for altered mental status. He is fairly somnolent on exam, mumbles but doesn't answer questions well. He does follow some commands. Labs were obtained which were unremarkable. CT the head is unremarkable. I don't appreciate any focal findings on exam except for his somnolence and some dysarthria. Patient will be admitted in the setting of what I think is distal urea. It may be secondary to medications as the patient does receive Xanax at the alf. In reviewing the patient's notes from prior admission palliative care had been consulting on the patient and had recommended potential hospice placement for this patient. This may be something to reconsider now that the patient has return to the emergency department after only a short time. I did try to contact the patient's power of bankruptcy attorney but she didn't answer the phone call. Diagnosis Primary Impression: Delirium Admitting Information Admitting Physician Requests: Observation Melissa Jean MD Sep 30, 2016 10:51
[2016-09-30 10:54] LABS: AUTOMATED NEUTROPHIL # 7.6 TH/MM3 (1.8-7.7); BASOPHIL # 0.1 TH/MM3 (0-0.2); EOSINOPHIL # 0.1 TH/MM3 (0-0.4); EOSINOPHIL % 1.2 % (0.0-4.0); HEMATOCRIT 38.4 % (39.0-51.0); HEMO FLAGS DIFF FINAL; LYMPH % 12.6 % (9.0-44.0); LYMPHOCYTE # 1.2 TH/MM3 (1.0-4.8); MEAN CORPUSCULAR HEMOGLOBIN 32.2 PG (27.0-34.0); MEAN CORPUSCULAR HGB CONC 32.5 % (32.0-36.0); MONO % 7.3 % (0.0-8.0); NEUT % 77.9 % (16.0-70.0); PLATELET COUNT 207 TH/MM3 (150-450); RED BLOOD COUNT 3.88 MIL/MM3 (4.50-5.90); RED CELL DISTRIBUTION WIDTH 16.3 % (11.6-17.2); WHITE BLOOD COUNT 9.7 TH/MM3 (4.0-11.0)
[2016-09-30] MEDS ORDERED: CELE20TA PO (11:15)
[2016-09-30] MEDS ORDERED: NOVOLOGP2 SQ (11:15)
[2016-09-30] MEDS ORDERED: ALPR.5 PO (11:15)
[2016-09-30] MEDS ORDERED: GABA100C4 PO (11:15)
[2016-09-30 11:16] LABS: APTT (PATIENT) 26.2 SEC (24.3-30.1); INTERNATIONAL NORMALIZED RATIO 1.1 RATIO; PROTHROMBIN TIME - PATIENT 12.7 SEC (9.8-11.6)
[2016-09-30 11:18] LABS: ALKALINE PHOSPHATASE 98 U/L (45-117); ALT (GPT) 68 U/L (12-78); TOTAL BILIRUBIN ADULT 0.8 MG/DL (0.2-1.0)
[2016-09-30 11:20] LABS: BLOOD, URINE NEG (NEG); COMMENT (UR) CULT NOT INDICATED; CULTURE IF INDICATED CULT NOT INDICATED; GLUCOSE,URINE NEG (NEG); KETONE, URINE NEG (NEG); MUCUS URINE FEW /lpf (OCC); NITRITE,URINE NEG (NEG); PH, URINE 5.5 (5.0-8.5); URINE COLOR YELLOW (YELLW/STRAW)
[2016-09-30 11:24] LABS: ANION GAP 8 MEQ/L (5-15); AST (GOT) 39 U/L (15-37); BICARBONATE 26.8 MEQ/L (21.0-32.0); BLOOD UREA NITROGEN 20 MG/DL (7-18); CHLORIDE 104 MEQ/L (98-107); GLOMERULAR FILTRATION RATE 75 ML/MIN (>89); POTASSIUM 4.6 MEQ/L (3.5-5.1); SODIUM (NA) 139 MEQ/L (136-145)
--- NOTE | 2016-09-30 12:51 | RADRPT ---
EXAM DATE/TIME: 09/30/2016 12:13 [facility] COMPARISON: CT BRAIN W/O CONTRAST, May 12, 2015, 7:36. INDICATIONS : Altered metal status RADIATION DOSE: 37.51 CTDIvol (mGy) MEDICAL HISTORY : Hypertension. Chronic obstructive pulmonary disease. Congestive heart failure.Migrain, dizziness, TIA SURGICAL HISTORY : Cardiac stent, ENCOUNTER: Initial ACUITY: 1 day PAIN SCALE: Non-responsive LOCATION: cranial TECHNIQUE: Multiple contiguous axial images were obtained of the head. Using automated exposure control and adj ustment of the mA and/or kV according to patient size, radiation dose was kept as low as reasonably a chievable to obtain optimal diagnostic quality images. DICOM format image data is available electro nically for review and comparison. FINDINGS: CEREBRUM: Moderate diffuse cerebral atrophy consistent with age. The ventricles are normal for degree of atroph y. Moderate periventricular white matter hypodensities consistent with ischemic white matter [place]. No evidence of midline shift, mass lesion, hemorrhage or acute infarction. No extra-axial fl uid collections are seen. POSTERIOR FOSSA: The cerebellum and brainstem are intact. The 4th ventricle is midline. The cerebellopontine angle i s unremarkable. EXTRACRANIAL: The visualized portion of the orbits is intact. SKULL: The calvaria is intact. No evidence of skull fracture. CONCLUSION: 1. Senescent changes. 2. No acute intracranial abnormality. Kenneth Choudhary MD on September 30, 2016 at 12:45 Board Certified Radiologist. This report was verified electronically.
[2016-09-30] MEDS ORDERED: SODIUM CHLORIDE 0.9% FLUSH 10 ML FLUSH IVF PRN (13:30)
[2016-09-30] MEDS: SODIUM CHLORIDE 0.9% FLUSH 10 ML FLUSH IV FLUSH SCH ×2 (13:35→21:00)
[2016-09-30] MEDS ORDERED: ONDANSETRON HCL 4 MG/2 ML VIAL IVP PRN (13:45)
[2016-09-30] MEDS ORDERED: SODIUM CHLORIDE 0.9% FLUSH 10 ML FLUSH IV FLUSH PRN (13:45)
[2016-09-30] MEDS ORDERED: NALOXONE HCL 0.4 MG/ML AMP IV PRN (13:45)
[2016-09-30] MEDS ORDERED: cloNIDine HCL 0.2 MG TAB PO PRN (13:45)
[2016-09-30] MEDS ORDERED: MAGNESIUM HYDROXIDE SUSP 30 ML CUP PO PRN (13:45)
[2016-09-30] MEDS ORDERED: ENALAPRILAT 1.25 MG/ML VIAL IV PUSH PRN (13:45)
[2016-09-30] MEDS ORDERED: GLUCAGON 1 MG/ML VIAL OTHER PRN (14:15)
[2016-09-30] MEDS ORDERED: DEXTROSE 50% IN WATER 50 ML VIAL(D50) IV PUSH PRN (14:15)
[2016-09-30] MEDS ORDERED: PILL SPLITTER OTHER PRN (14:15)
--- NOTE | 2016-09-30 14:27 | RADRPT ---
EXAM DATE/TIME: 09/30/2016 13:39 [facility] COMPARISON: CHEST SINGLE AP, September 07, 2016, 4:37. INDICATIONS : Altered mental status. MEDICAL HISTORY : Hypertension. Chronic obstructive pulmonary disease. Congestive heart failure. TIA, AFIB SURGICAL HISTORY : Cardiac stent ENCOUNTER: Initial ACUITY: 1 day PAIN SCORE: Non-responsive. LOCATION: Bilateral chest FINDINGS: Portable AP views of the chest demonstrate cardiac silhouette size at the upper limits for normal wit h calcification of the aorta. There are small bibasilar pleural-parenchymal opacities. No pneumothora x is visualized. Bones demonstrate no acute finding. CONCLUSION: Stable chest x-ray with small bibasilar opacities likely representing small pleural effusions with as sociated volume loss and/or airspace consolidation. Elias William MD on September 30, 2016 at 14:24 Board Certified Radiologist. This report was verified electronically.
--- NOTE | 2016-09-30 14:30 | EKG ---
Date Performed: 09/30/2016 Time Performed: 10:32:43 PTAGE: 86 years EKG: ATRIAL FIBRILLATION WITH SLOW VENTRICULAR RESPONSE WITH ABERRANT CONDUCTION OR VENTRICULAR PREMATURE COMPLEXES LEFT BUNDLE BRANCH BLOCK ABNORMAL ECG Since PREVIOUS TRACING , no significant change noted PREVIOUS TRACIN09/15/2016 22.29 DOCTOR: Kostas Zaragoza Interpretating Date/Time 09/30/2016 14:29:06
[2016-09-30] MEDS: INSULIN ASPART SUPPLEMENTAL SCALE SQ SCH ×2 (16:00→21:00)
--- NOTE | 2016-09-30 16:39 | HHI.HP ---
HPI Service CP Hospitalists Primary Care Physician Tamir Cooney Admission Diagnosis altered mental status Chief Complaint: AMS Travel History International Travel<30 Days: No Contact w/Intl Traveler <30 Da: No Traveled to Known Affected Are: No History of Present Illness Mr. 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 He did have some A. fib with aberrancy and some idiopathic rhythms with a lot of PVCs. Pt stabilized clinically and was discharged to [facility] on 09/21 for rehab. Pt was transported back to [facility] on 09/30/16 after he became more lethargic than normal today. His caregiver is present at the time of the exam and states that his anxiety has been a major issue while he has been at rehab. At baseline he has been somewhat confused and for a long time has been debilitated due to chronic back pain. He was on Xanax, Gabapentin, and Eleele while at rehab. CXR at admission noted stable chest x-ray with small bibasilar opacities likely representing small pleural effusions with associated volume loss and/or airspace consolidation. Labs are stable. Troponin is trending down from previous labs. Review of Systems ROS Limitations: Clinical Condition, Altered Mental Status, Poor Historian Past Family Social History Past Medical History History obtained from the chart and outpt records due to pts AMS: Atrial fibrillation Chronic angina pectoris Gonzalez's esophagus BPH Cardiomyopathy CAD COPD Depression HTN Hyperlipidemia Hx of ischemic colitis ROMA PVD Lumbar radiculopathy Past Surgical History LHC with BM stent placement to LAD and IABP on 09/04/[address] Sandoval Left AKA on 09/13/[address] Castellanos Left Lower extremity vascular procedure (08/2016) 1. BK pop/TPT endarterectomy and patch angioplasty 2. INFORMATION ASSISTANT endarterectomy and patch angioplasty 3. L LE angiogram 4. Embolectomy of popliteal artery 5. embolectomy of peroneal artery Atrial cardioversion on two attempts in 2007 Lumbar diskectomy in 1968 Bilateral LE arthrectomy Tonsillectomy Wrist surgery Reported Medications Furosemide 40 Mg Tab 40 Mg PO DAILY Eleele (Hydrocodone-Acetaminophen) 5-325 mg Tab 1 Tab PO Q6H PRN Metoprolol Tartrate 25 Mg Tab 12.5 Mg PO Q12HR Lisinopril 5 Mg Tab 2.5 Mg PO DAILY Digoxin 0.125 Mg Tab 0.125 Mg PO DAILY Plavix (Clopidogrel Bisulfate) 75 Mg Tab 75 Mg PO DAILY Aspirin Low Strength (Aspirin) 81 Mg Chew 81 Mg PO DAILY Xanax (Alprazolam) 0.5 Mg Tab 0.5 Mg PO Q4H Gabapentin 100 Mg Cap 100 Mg PO BID Celexa (Citalopram Hydrobromide) 20 Mg Tab 20 Mg PO DAILY Novolog Inj (Insulin Aspart) 1,000 Unit/10 Ml Vial 0 SQ ACHS Sliding Scale: 150-199=1 unit, 200-249=3 units, 250-299=5 units, 300-349=7 units, > 349=9 units Ventolin Hfa 18 GM Inh (Albuterol Sulfate) 90 Mcg/Act Aer 2 Puff INH Q4-6H PRN Potassium Chloride ER (Potassium Chloride) 10 Meq Cap 10 Meq PO BID Atorvastatin (Atorvastatin Calcium) 40 Mg Tab 40 Mg PO HS Allergies: Coded Allergies: Penicillin (Verified Allergy, Severe, EDEMA, HIVES, 09/30/16) Family History Unobtainable Social History Hx of tobacco use, smoked 2-3PPD x 10 years, quit 35 years ago. No reported alcohol or illicit drug use Physical Exam Vital Signs Vital Signs Date Time Temp Pulse Resp B/P Pulse Ox O2 Delivery O2 Flow Rate FiO2 09/30/16 14:30 60 16 168/70 100 Nasal Cannula 2.0 09/30/16 13:55 100 Nasal Cannula 2.00 09/30/16 13:25 60 19 162/74 100 Nasal Cannula 2.0 09/30/16 13:15 58 12 148/67 100 Nasal Cannula 2.0 09/30/16 12:00 66 22 174/89 100 Nasal Cannula 2.0 09/30/16 11:00 54 12 145/65 100 Nasal Cannula 2.0 09/30/16 10:32 100 Nasal Cannula 2.0 09/30/16 10:27 74 100 Room Air 09/30/16 10:27 60 14 196/86 100 Nasal Cannula 2.0 09/30/16 10:14 97.6 66 12 196/86 100 Physical Exam GENERAL: This is a well-nourished, well-developed patient, in no apparent distress. HEENT: Atraumatic. Normocephalic. No temporal or scalp tenderness. No scleral icterus. Airway patent. NECK: Trachea midline, supple, nontender. CARDIO: Regular. RESP: CTA bilaterally. No wheezes, rales, or rhonchi. ABD: +BS, soft, non-tender, nondistended. EXT: Left AKA, abiodun are well approximated, no erythema, drainage or bleeding NEURO: Awake, alert, confused. Laboratory Laboratory Tests Test 09/30/16 09/30/16 10:30 10:45 White Blood Count 9.7 Red Blood Count 3.88 Hemoglobin 12.5 Hematocrit 38.4 Mean Corpuscular Volume 99.0 Mean Corpuscular Hemoglobin 32.2 Mean Corpuscular Hemoglobin 32.5 Concent Red Cell Distribution Width 16.3 Platelet Count 207 Mean Platelet Volume 8.1 Neutrophils (%) (Auto) 77.9 Lymphocytes (%) (Auto) 12.6 Monocytes (%) (Auto) 7.3 Eosinophils (%) (Auto) 1.2 Basophils (%) (Auto) 1.0 Neutrophils # (Auto) 7.6 Lymphocytes # (Auto) 1.2 Monocytes # (Auto) 0.7 Eosinophils # (Auto) 0.1 Basophils # (Auto) 0.1 CBC Comment DIFF FINAL Differential Comment Prothrombin Time 12.7 Prothromb Time International 1.1 Ratio Activated Partial 26.2 Thromboplast Time Sodium Level 139 Potassium Level 4.6 Chloride Level 104 Carbon Dioxide Level 26.8 Anion Gap 8 Blood Urea Nitrogen 20 Creatinine 0.95 Estimat Glomerular Filtration 75 Rate Random Glucose 122 Lactic Acid Level 1.2 Calcium Level 7.9 Total Bilirubin 0.8 Aspartate Amino Transf 39 (AST/SGOT) Alanine Aminotransferase 68 (ALT/SGPT) Alkaline Phosphatase 98 Troponin I 0.08 Total Protein 6.0 Albumin 3.0 Digoxin Level 0.5 Urine Color YELLOW Urine Turbidity CLEAR Urine pH 5.5 Urine Specific [place] 1.017 Urine Protein TRACE Urine Glucose (UA) NEG Urine Ketones NEG Urine Occult Blood NEG Urine Nitrite NEG Urine Bilirubin NEG Urine Urobilinogen LESS THAN 2.0 Urine Leukocyte Esterase NEG Urine RBC LESS THAN 1 Urine WBC LESS THAN 1 Urine Mucus FEW Microscopic Urinalysis Comment CULT NOT INDICATED Date/Time Procedure Status Source Growth 09/30/16 10:35 Aerobic Blood Culture Received Blood Peripheral Pending 09/30/16 10:35 Anaerobic Blood Culture Received Blood Peripheral Pending Result Diagram: 09/30/16 1030 09/30/16 1030 Imaging Last Impressions Chest X-Ray 09/30/16 1335 Signed Impressions: Service Date/Time: Friday, September 30, 2016 13:39 - CONCLUSION: Stable chest x-ray with small bibasilar opacities likely representing small pleural effusions with associated volume loss and/or airspace consolidation. Elias William MD Head CT 09/30/16 1027 Signed Impressions: Service Date/Time: Friday, September 30, 2016 12:13 - CONCLUSION: 1. Senescent changes. 2. No acute intracranial abnormality. 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 - Pt stabilized clinically and was discharged to [facility] on 09/21 for rehab. - Pt was transported back to [facility] on 09/30/16 after he became more lethargic than normal today. - His caregiver is present at the time of the exam and states that his anxiety has been a major issue while he has been at rehab. At baseline he has been somewhat confused and for a long time has been debilitated due to chronic back pain. - He was on Xanax, Gabapentin, and Eleele while at rehab which is likely contributing to his confusion. - CXR at admission noted stable chest x-ray with small bibasilar opacities likely representing small pleural effusions with associated volume loss and/or airspace consolidation. - UA is negative. - Labs are stable. - Troponin is trending down from previous labs. - Gabapentin and Eleele is held - Cont. Xanax PRN due to significant anxiety - Celexa dose will be increased - Given some gentle IVF - Monitor labs and clinical status - Pt is a DNR - Supportive care (2) Anxiety Status: Chronic Plan: - See above. (3) Status post above knee amputation of left lower extremity Status: Acute Plan: - Pt s/p left AKA on 09/13/[address] Castellanos - Pt abiodun are well approximated and wound appears to be healing well - Will need to touch base with Vascular surgery about when to remove abiodun (4) HTN (hypertension) Status: Chronic Plan: - Home meds continued (5) Hyperlipidemia Status: Chronic Plan: - Home meds continued (6) Afib Status: Chronic Plan: - Home meds continued - Telemetry (7) Chronic back pain Status: Chronic Plan: - Hold Eleele - Tylenol PRN for pain Assessment and Plan Patient examined. Assessment and plan formulated with Maryjane Pina PA-C. I agree with the above. Maryjane Pina Sep 30, 2016 16:39 Phan Linda DO Oct 02, 2016 00:05
[2016-09-30] MEDS ORDERED: ALPRAZolam 0.25 MG TAB PO PRN (17:00)
[2016-09-30] MEDS: 1/2 NS + KCL 20 MEQ INJ 1,000 ML IV SCH (17:08)
[2016-09-30] MEDS ORDERED: SODIUM CHLORIDE 0.9% FLUSH 10 ML FLUSH IV FLUSH SCH (21:00)
[2016-09-30] MEDS: METOPROLOL TARTRATE 25 MG TAB PO SCH (21:00)
[2016-09-30] MEDS: POTASSIUM CHLORIDE 10 MEQ CAP PO SCH (21:46)
[2016-09-30] MEDS: ATORVASTATIN 40 MG TAB PO SCH (21:47)
[2016-09-30] MEDS: ACETAMINOPHEN 325 MG TAB PO PRN (21:48)
[2016-10-01] VITALS (7 sets, daily range): BP systolic 130–157; BP diastolic 59–71; PULSE 59–78; RESP 18–24; TEMP 97.6–98.4; O2SAT 98–100
[2016-10-01] MEDS: 1/2 NS + KCL 20 MEQ INJ 1,000 ML IV SCH ×2 (03:53→15:42)
[2016-10-01] MEDS: INSULIN ASPART SUPPLEMENTAL SCALE SQ SCH ×4 (06:40→21:00)
[2016-10-01] MEDS: SODIUM CHLORIDE 0.9% FLUSH 10 ML FLUSH IV FLUSH SCH ×2 (09:00→21:18)
[2016-10-01] MEDS: METOPROLOL TARTRATE 25 MG TAB PO SCH ×2 (09:00→21:18)
[2016-10-01] MEDS ORDERED: CITALOPRAM HYDROBROMIDE 20 MG TAB PO SCH (09:00)
[2016-10-01 09:18] LABS: AUTOMATED NEUTROPHIL # 8.1 TH/MM3 (1.8-7.7); BASOPHIL # 0.1 TH/MM3 (0-0.2); BASOPHIL % 0.7 % (0.0-2.0); EOSINOPHIL # 0.1 TH/MM3 (0-0.4); EOSINOPHIL % 1.2 % (0.0-4.0); HEMATOCRIT 35.9 % (39.0-51.0); HEMO FLAGS DIFF FINAL; LYMPH % 12.7 % (9.0-44.0); LYMPHOCYTE # 1.3 TH/MM3 (1.0-4.8); MEAN CELL VOLUME 97.4 FL (80.0-100.0); MEAN CORPUSCULAR HEMOGLOBIN 32.9 PG (27.0-34.0); MEAN CORPUSCULAR HGB CONC 33.8 % (32.0-36.0); MONO % 8.2 % (0.0-8.0); NEUT % 77.2 % (16.0-70.0); PLATELET COUNT 162 TH/MM3 (150-450); RED BLOOD COUNT 3.69 MIL/MM3 (4.50-5.90); RED CELL DISTRIBUTION WIDTH 16.6 % (11.6-17.2); WHITE BLOOD COUNT 10.5 TH/MM3 (4.0-11.0)
[2016-10-01] MEDS: LISINOPRIL 5 MG TAB PO SCH (09:19)
[2016-10-01] MEDS: CLOPIDOGREL 75 MG TAB PO SCH (09:19)
[2016-10-01] MEDS: CITALOPRAM HYDROBROMIDE 20 MG TAB PO SCH (09:20)
[2016-10-01] MEDS: FUROSEMIDE 40 MG TAB PO SCH (09:20)
[2016-10-01] MEDS: POTASSIUM CHLORIDE 10 MEQ CAP PO SCH ×2 (09:20→21:19)
[2016-10-01] MEDS: DIGOXIN 0.125 MG TAB PO SCH (09:20)
[2016-10-01] MEDS: ASPIRIN 81 MG CHEW TAB PO SCH (09:20)
[2016-10-01 09:30] LABS: BICARBONATE 25.2 MEQ/L (21.0-32.0); MAGNESIUM 2.2 MG/DL (1.5-2.5); POTASSIUM 4.6 MEQ/L (3.5-5.1)
--- NOTE | 2016-10-01 18:12 | HHI.PR ---
Subjective Remarks Pt had nose bleed from left nares. Objective Vitals Vital Signs Date Time Temp Pulse Resp B/P Pulse Ox O2 Delivery O2 Flow Rate FiO2 10/01/16 15:34 78 24 157/71 98 10/01/16 11:16 97.6 67 20 135/65 98 10/01/16 09:20 100 Nasal Cannula 2.00 21 10/01/16 07:08 97.6 59 18 130/61 100 10/01/16 03:48 97.8 61 18 133/59 100 10/01/16 00:29 97.8 63 18 135/63 100 09/30/16 23:00 18 09/30/16 21:45 58 09/30/16 19:58 Nasal Cannula 2.00 09/30/16 19:32 97.8 63 18 134/60 98 09/30/16 09/30/16 10/01/16 15:00 23:00 07:00 Output Total 300 ml Balance -300 ml Output Urine Total 300 ml # Voids 1 Result Diagram: 10/01/16 0727 10/01/16 0727 Imaging Last Impressions Chest X-Ray 09/30/16 1335 Signed Impressions: Service Date/Time: Friday, September 30, 2016 13:39 - CONCLUSION: Stable chest x-ray with small bibasilar opacities likely representing small pleural effusions with associated volume loss and/or airspace consolidation. Elias Wililam MD Head CT 09/30/16 1027 Signed Impressions: Service Date/Time: Friday, September 30, 2016 12:13 - CONCLUSION: 1. Senescent changes. 2. No acute intracranial abnormality. Kenneth Choudhary MD Objective Remarks GENERAL: This is a well-nourished, well-developed patient, in no apparent distress. CARDIOVASCULAR: Regular rate and rhythm without murmurs, gallops, or rubs. RESPIRATORY: Clear to auscultation. Breath sounds equal bilaterally. No wheezes , rales, or rhonchi. GASTROINTESTINAL: Abdomen soft, non-tender, nondistended. Normal active bowel sounds MUSCULOSKELETAL: Extremities without clubbing, cyanosis, or edema. 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 - Pt stabilized clinically and was discharged to [facility] on 09/21 for rehab. - Pt was transported back to [facility] on 09/30/16 after he became more lethargic than normal today. - His caregiver is present at the time of the exam and states that his anxiety has been a major issue while he has been at rehab. At baseline he has been somewhat confused and for a long time has been debilitated due to chronic back pain. - He was on Xanax, Gabapentin, and [place] while at rehab which is likely contributing to his confusion. - CXR at admission noted stable chest x-ray with small bibasilar opacities likely representing small pleural effusions with associated volume loss and/or airspace consolidation. - UA is negative. - Labs are stable. - Troponin is trending down from previous labs. - Gabapentin and [place] are held - schedule Xanax due to significant anxiety - Celexa dose increased - gentle IVF - Monitor labs and clinical status - Pt is a DNR - Supportive care - anticipate d/c in 2-3 days (2) Epistaxis Status: Acute Plan: - packing placed to left nares - observe (3) Anxiety Status: Chronic Plan: - started scheduled xanax (4) Status post above knee amputation of left lower extremity Status: Acute Plan: - Pt s/p left AKA on 09/13/[address] Castellanos - Pt abiodun are well approximated and wound appears to be healing well - Will need to touch base with Vascular surgery about when to remove abiodun (5) HTN (hypertension) Status: Chronic Plan: - Home meds continued (6) Hyperlipidemia Status: Chronic Plan: - Home meds continued (7) Afib Status: Chronic Plan: - Home meds continued - Telemetry (8) Chronic back pain Status: Chronic Plan: - Hold [place] - Tylenol PRN for pain Phan Linda DO Oct 01, 2016 18:12
[2016-10-01] MEDS: ATORVASTATIN 40 MG TAB PO SCH (21:18)
[2016-10-01] MEDS: ALPRAZolam 0.25 MG TAB PO SCH (21:19)
[2016-10-02] VITALS (8 sets, daily range): BP systolic 99–164; BP diastolic 51–86; PULSE 59–89; RESP 16–20; TEMP 97.6–98.5; O2SAT 95–100
[2016-10-02] MEDS: ACETAMINOPHEN/HYDROcodone 325 MG/5 MG TAB PO PRN ×2 (01:58→05:52)
[2016-10-02] MEDS: 1/2 NS + KCL 20 MEQ INJ 1,000 ML IV SCH ×2 (03:50→15:04)
[2016-10-02] MEDS: INSULIN ASPART SUPPLEMENTAL SCALE SQ SCH ×3 (07:00→16:00)
[2016-10-02] MEDS: LISINOPRIL 5 MG TAB PO SCH (08:28)
[2016-10-02] MEDS: METOPROLOL TARTRATE 25 MG TAB PO SCH ×2 (08:28→20:01)
[2016-10-02] MEDS: FUROSEMIDE 40 MG TAB PO SCH (09:00)
[2016-10-02] MEDS: CITALOPRAM HYDROBROMIDE 20 MG TAB PO SCH (09:00)
[2016-10-02] MEDS: ASPIRIN 81 MG CHEW TAB PO SCH (09:00)
[2016-10-02] MEDS: POTASSIUM CHLORIDE 10 MEQ CAP PO SCH ×2 (09:00→20:01)
[2016-10-02] MEDS: SODIUM CHLORIDE 0.9% FLUSH 10 ML FLUSH IV FLUSH SCH ×2 (09:00→21:00)
[2016-10-02] MEDS: ALPRAZolam 0.25 MG TAB PO SCH ×2 (09:00→20:01)
[2016-10-02] MEDS: DIGOXIN 0.125 MG TAB PO SCH (09:00)
[2016-10-02] MEDS: CLOPIDOGREL 75 MG TAB PO SCH (09:00)
[2016-10-02 12:46] LABS: AUTOMATED NEUTROPHIL # 17.8 TH/MM3 (1.8-7.7); BASOPHIL # 0.1 TH/MM3 (0-0.2); BASOPHIL % 0.4 % (0.0-2.0); HEMATOCRIT 33.7 % (39.0-51.0); LYMPHOCYTE # 0.6 TH/MM3 (1.0-4.8); MEAN CELL VOLUME 96.2 FL (80.0-100.0); MEAN CORPUSCULAR HEMOGLOBIN 32.4 PG (27.0-34.0); MEAN CORPUSCULAR HGB CONC 33.6 % (32.0-36.0); MONO % 4.8 % (0.0-8.0); NEUT % 91.8 % (16.0-70.0); PLATELET COUNT 140 TH/MM3 (150-450); RED BLOOD COUNT 3.51 MIL/MM3 (4.50-5.90); RED CELL DISTRIBUTION WIDTH 16.6 % (11.6-17.2); WHITE BLOOD COUNT 19.4 TH/MM3 (4.0-11.0)
[2016-10-02 12:48] LABS: HEMO FLAGS AUTO DIFF
[2016-10-02 13:07] LABS: BICARBONATE 22.3 MEQ/L (21.0-32.0); POTASSIUM 4.6 MEQ/L (3.5-5.1)
[2016-10-02 13:16] LABS: BANDS 13 % (0-6); NEUTROPHIL # MANUAL DIFF 18.6 TH/MM3 (1.8-7.7); PLATELET ESTIMATE SMEAR LOW (NORMAL); PLATELET MORPHOLOGY NORMAL (NORMAL); POLYS (SEG NEUTROPHILS) 83 % (16-70); WBC DIFF SAMPLE 100
[2016-10-02 13:17] LABS: SCAN/DIFF FINAL DIFF MANUAL; TOXIC VACUOLATION PRESENT (NONE SEEN)
--- NOTE | 2016-10-02 15:51 | HHI.PR ---
Subjective Remarks upon admission, I had stopped pt's narcotics. Pt received 2 dose of lortab last night. Nursing reports that pt has slept most of the day & eaten very little. Upon my examination pt was awake, alert, and answered questions appropriately. Pt had NO new complaints. Objective Vitals Vital Signs Date Time Temp Pulse Resp B/P Pulse Ox O2 Delivery O2 Flow Rate FiO2 10/02/16 15:27 97.7 59 18 116/58 97 10/02/16 11:20 97.6 65 18 136/63 100 10/02/16 10:44 21 10/02/16 09:15 94 Nasal Cannula 3.00 Humidified 10/02/16 07:17 97.9 70 20 99/51 98 10/02/16 05:50 97.9 89 16 164/78 96 10/02/16 03:24 98 Room Air 10/01/16 23:18 98.4 62 20 145/64 100 10/01/16 19:48 98 10/01/16 10/01/16 10/02/16 15:00 23:00 07:00 Intake Total 1200 ml 120 ml Output Total 200 ml Balance 1000 ml 120 ml Intake Oral 1200 ml 120 ml Output Urine Total 200 ml # Voids 3 2 # Bowel Movements 1 Result Diagram: 10/02/16 1200 10/02/16 1200 Imaging Last Impressions Chest X-Ray 09/30/16 1335 Signed Impressions: Service Date/Time: Friday, September 30, 2016 13:39 - CONCLUSION: Stable chest x-ray with small bibasilar opacities likely representing small pleural effusions with associated volume loss and/or airspace consolidation. Elias William MD Head CT 09/30/16 1027 Signed Impressions: Service Date/Time: Friday, September 30, 2016 12:13 - CONCLUSION: 1. Senescent changes. 2. No acute intracranial abnormality. Kenneth Choudhary MD Objective Remarks GENERAL: This is a well-nourished, well-developed patient, in no apparent distress. CARDIOVASCULAR: Regular rate and rhythm without murmurs, gallops, or rubs. RESPIRATORY: Clear to auscultation. Breath sounds equal bilaterally. No wheezes , rales, or rhonchi. GASTROINTESTINAL: Abdomen soft, non-tender, nondistended. Normal active bowel sounds MUSCULOSKELETAL: Extremities without clubbing, cyanosis, or edema. 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 - Pt stabilized clinically and was discharged to [facility] on 09/21 for rehab. - Pt was transported back to [facility] on 09/30/16 after he became more lethargic than normal today. - His caregiver is present at the time of the exam and states that his anxiety has been a major issue while he has been at rehab. At baseline he has been somewhat confused and for a long time has been debilitated due to chronic back pain. - He was on Xanax, Gabapentin, and [place] while at rehab which is likely contributing to his confusion. - CXR at admission noted stable chest x-ray with small bibasilar opacities likely representing small pleural effusions with associated volume loss and/or airspace consolidation. - UA is negative. - Labs are stable. - Troponin is trending down from previous labs. - Gabapentin and [place] are held - schedule Xanax due to significant anxiety - Celexa dose increased - gentle IVF - Monitor labs and clinical status - Pt is a DNR - Supportive care - STOP narcotics. - anxiety is a significant issue for Mr. Horn - Will see if he is improved with scheduled (BID) xanax - discuss case with Palliative service 10/03 - hopefully, pt can transfer back to SNF in next 1-2 days. (2) Epistaxis Status: Resolved Plan: - resolved (3) Anxiety Status: Chronic Plan: - started scheduled xanax (4) Status post above knee amputation of left lower extremity Status: Acute Plan: - Pt s/p left AKA on 09/13/[address] Castellanos - Pt abiodun are well approximated and wound appears to be healing well - Will need to touch base with Vascular surgery about when to remove abiodun (5) HTN (hypertension) Status: Chronic Plan: - Home meds continued (6) Hyperlipidemia Status: Chronic Plan: - Home meds continued (7) Afib Status: Chronic Plan: - Home meds continued - Telemetry (8) Chronic back pain Status: Chronic Plan: - Hold [place] - Tylenol PRN for pain Phan Linda DO Oct 02, 2016 15:51
--- NOTE | 2016-10-02 17:40 | EKG ---
Date Performed: 10/01/2016 Time Performed: 15:35:01 PTAGE: 86 years EKG: ATRIAL FIBRILLATION WITH ABERRANT CONDUCTION OR VENTRICULAR PREMATURE COMPLEXES LEFT BUNDLE BRANCH BLOCK ABNORMAL ECG Compared to PREVIOUS TRACING , heart rate has increased, somewhat. PREVIOUS TRACIN09/30/2016 10. 32.43 DOCTOR: Thania Mireles Interpretating Date/Time 10/02/2016 17:39:52
--- NOTE | 2016-10-02 17:40 | EKG ---
Date Performed: 10/02/2016 Time Performed: 05:49:20 PTAGE: 86 years EKG: ATRIAL FIBRILLATION LEFT BUNDLE BRANCH BLOCK ABNORMAL ECG Since PREVIOUS TRACING , no significant change noted PREVIOUS TRACIN10/01/2016 15.35 DOCTOR: Thania Mireles Interpretating Date/Time 10/02/2016 17:40:00
[2016-10-02] MEDS: ATORVASTATIN 40 MG TAB PO SCH (20:01)
[2016-10-03 03:53] VITALS: BP 137/65; PULSE 69; RESP 18; TEMP 97.7; O2SAT 95
[2016-10-03 08:05] LABS: AUTOMATED NEUTROPHIL # 12.4 TH/MM3 (1.8-7.7); BASOPHIL # 0.2 TH/MM3 (0-0.2); BASOPHIL % 1.5 % (0.0-2.0); EOSINOPHIL % 0.3 % (0.0-4.0); HEMATOCRIT 36.3 % (39.0-51.0); LYMPH % 4.5 % (9.0-44.0); LYMPHOCYTE # 0.6 TH/MM3 (1.0-4.8); MEAN CELL VOLUME 96.7 FL (80.0-100.0); MEAN CORPUSCULAR HGB CONC 33.1 % (32.0-36.0); MONO % 5.5 % (0.0-8.0); NEUT % 88.2 % (16.0-70.0); PLATELET COUNT 135 TH/MM3 (150-450); RED BLOOD COUNT 3.76 MIL/MM3 (4.50-5.90); RED CELL DISTRIBUTION WIDTH 16.6 % (11.6-17.2); WHITE BLOOD COUNT 14.1 TH/MM3 (4.0-11.0)
[2016-10-03 08:08] VITALS: BP 131/60; PULSE 72; RESP 18; TEMP 97.6; O2SAT 99
[2016-10-03 08:16] LABS: HEMO FLAGS AUTO DIFF
[2016-10-03 08:37] LABS: BICARBONATE 24.8 MEQ/L (21.0-32.0); MAGNESIUM 2.2 MG/DL (1.5-2.5); POTASSIUM 4.6 MEQ/L (3.5-5.1)
[2016-10-03 09:10] LABS: BANDS 12 % (0-6); METAMYELOCYTES 1 % (0-1); NEUTROPHIL # MANUAL DIFF 13.4 TH/MM3 (1.8-7.7); POLYS (SEG NEUTROPHILS) 82 % (16-70); WBC DIFF SAMPLE 100
[2016-10-03 09:13] LABS: PLATELET ESTIMATE SMEAR LOW (NORMAL)
[2016-10-03 09:14] LABS: PLATELET MORPHOLOGY NORMAL (NORMAL); SCAN/DIFF FINAL DIFF MANUAL
--- NOTE | 2016-10-03 09:46 | HHI.PR ---
Subjective Remarks Pt awake and alert today Complains of some pain in the RUQ/right lower rib area, states that this is not new pain Afebrile Objective Vitals Vital Signs Date Time Temp Pulse Resp B/P Pulse Ox O2 Delivery O2 Flow Rate FiO2 10/03/16 08:08 97.6 72 18 131/60 99 10/03/16 03:53 97.7 69 18 137/65 95 10/02/16 23:27 Room Air 10/02/16 23:22 97.6 62 18 119/60 95 10/02/16 21:03 96 Nasal Cannula 1.00 10/02/16 20:41 97.8 66 18 119/56 96 10/02/16 18:32 98.5 62 18 129/86 100 10/02/16 15:27 97.7 59 18 116/58 97 10/02/16 11:20 97.6 65 18 136/63 100 10/02/16 10:44 21 10/02/16 10/02/16 10/03/16 15:00 23:00 07:00 Intake Total 320 ml Balance 320 ml Intake Oral 320 ml Result Diagram: 10/03/16 0646 10/03/1646 Other Results Laboratory Tests Test 10/02/16 10/03/16 12:00 06:46 White Blood Count 19.4 TH/MM3 14.1 TH/MM3 Red Blood Count 3.51 MIL/MM3 3.76 MIL/MM3 Hemoglobin 11.3 GM/DL 12.0 GM/DL Hematocrit 33.7 % 36.3 % Mean Corpuscular Volume 96.2 FL 96.7 FL Mean Corpuscular Hemoglobin 32.4 PG 32.0 PG Mean Corpuscular Hemoglobin 33.6 % 33.1 % Concent Red Cell Distribution Width 16.6 % 16.6 % Platelet Count 140 TH/MM3 135 TH/MM3 Mean Platelet Volume 8.5 FL 8.8 FL Neutrophils (%) (Auto) 91.8 % 88.2 % Lymphocytes (%) (Auto) 3.0 % 4.5 % Monocytes (%) (Auto) 4.8 % 5.5 % Eosinophils (%) (Auto) 0.0 % 0.3 % Basophils (%) (Auto) 0.4 % 1.5 % Neutrophils # (Auto) 17.8 TH/MM3 12.4 TH/MM3 Lymphocytes # (Auto) 0.6 TH/MM3 0.6 TH/MM3 Monocytes # (Auto) 0.9 TH/MM3 0.8 TH/MM3 Eosinophils # (Auto) 0.0 TH/MM3 0.0 TH/MM3 Basophils # (Auto) 0.1 TH/MM3 0.2 TH/MM3 CBC Comment AUTO DIFF AUTO DIFF Differential Total Cells 100 100 Counted Neutrophils % (Manual) 83 % 82 % Band Neutrophils % 13 % 12 % Lymphocytes % 1 % 4 % Monocytes % 3 % 1 % Neutrophils # (Manual) 18.6 TH/MM3 13.4 TH/MM3 Differential Comment FINAL DIFF FINAL DIFF MANUAL MANUAL Toxic Vacuolation PRESENT Platelet Estimate LOW LOW Platelet Morphology Comment NORMAL NORMAL Sodium Level 133 MEQ/L 134 MEQ/L Potassium Level 4.6 MEQ/L 4.6 MEQ/L Chloride Level 102 MEQ/L 101 MEQ/L Carbon Dioxide Level 22.3 MEQ/L 24.8 MEQ/L Anion Gap 9 MEQ/L 8 MEQ/L Blood Urea Nitrogen 13 MG/DL 15 MG/DL Creatinine 0.65 MG/DL 0.75 MG/DL Estimat Glomerular Filtration 116 ML/MIN 99 ML/MIN Rate Random Glucose 122 MG/DL 100 MG/DL Calcium Level 7.6 MG/DL 8.1 MG/DL Magnesium Level 2.0 MG/DL 2.2 MG/DL Metamyelocytes 1 % Imaging Last Impressions Chest X-Ray 09/30/16 1335 Signed Impressions: Service Date/Time: Friday, September 30, 2016 13:39 - CONCLUSION: Stable chest x-ray with small bibasilar opacities likely representing small pleural effusions with associated volume loss and/or airspace consolidation. Elias William MD Head CT 09/30/16 1027 Signed Impressions: Service Date/Time: Friday, September 30, 2016 12:13 - CONCLUSION: 1. Senescent changes. 2. No acute intracranial abnormality. Kenneth Choudhary MD Objective Remarks General: NAD, Awake and alert Chest: CTA Cardiac: Regular Abd: +BS, soft nondistended, mild RUQ tenderness, no guarding Ext: Left AKA A/P Problem List: (1) Delirium Status: Acute Plan: - improved to pt's cognitive baseline - Pt is an 86 y/o WM with CAD/recent hx of STEMI, PAD s/p left AKA, HTN, CHF, Hyperlipidemia, anxiety - Pt was recently hospitalized at [facility] from 09/04/16 to 09/21/16 after he presented with cardiogenic shock and STEMI and underwent LHC with BM stent placed in the LAD and IABP, systolic CHF with EF 20-25%, and acute on chronic thrombosis/ischemic to the left leg GOLD PLATER to popliteal. He underwent pop/TPT endarterectomy and patch angioplasty, GOLD PLATER endarterectomy and patch angioplasty, L LE angiogram, Embolectomy of popliteal artery and embolectomy of peroneal artery on 09/09/16 and then eventually required left AKA on 09/13/16. - Pt stabilized clinically and was discharged to [facility] on 09/21 for rehab. - Pt was transported back to [facility] on 09/30/16 after he became more lethargic than normal today. - His caregiver is present at the time of the exam and states that his anxiety has been a major issue while he has been at rehab. At baseline he has been somewhat confused and for a long time has been debilitated due to chronic back pain. - He was on Xanax, Gabapentin, and [place] while at rehab which is likely contributing to his confusion. - CXR at admission noted stable chest x-ray with small bibasilar opacities likely representing small pleural effusions with associated volume loss and/or airspace consolidation. - UA is negative. - Labs are stable. - Troponin is trending down from previous labs. - Gabapentin and [place] are held - Anxiety is a significant issue for Mr. Horn so his Xanax was scheduled at BID dosing due to significant anxiety - Celexa dose increased - gentle IVF - Monitor labs and clinical status - Pt is a DNR - Supportive care - Narcotics STOPPED as this is likely contributing to his AMS - hopefully, pt can transfer back to SNF in next 1-2 days. (2) Epistaxis Status: Resolved Plan: - resolved (3) Anxiety Status: Chronic Plan: - Scheduled Xanax (4) Status post above knee amputation of left lower extremity Status: Acute Plan: - Pt s/p left AKA on 09/13/[address] Castellanos - Pt abiodun are well approximated and wound appears to be healing well - Will need to touch base with Vascular surgery about when to remove abiodun (5) HTN (hypertension) Status: Chronic Plan: - Home meds continued (6) Hyperlipidemia Status: Chronic Plan: - Home meds continued (7) Afib Status: Chronic Plan: - Home meds continued - Telemetry (8) Chronic back pain Status: Chronic Plan: - Hold [place] - Tylenol PRN for pain Assessment and Plan Patient examined. Assessment and plan formulated with Maryjane Pina PA-C. I agree with the above. d/c to snf for contiued PT and medical management. Maryjane Pina Oct 03, 2016 09:46 Lukas Rangel MD Oct 03, 2016 11:31
[2016-10-03] MEDS: LISINOPRIL 5 MG TAB PO SCH (09:58)
[2016-10-03] MEDS: FUROSEMIDE 40 MG TAB PO SCH (09:58)
[2016-10-03] MEDS: POTASSIUM CHLORIDE 10 MEQ CAP PO SCH (09:59)
[2016-10-03] MEDS: DIGOXIN 0.125 MG TAB PO SCH (09:59)
[2016-10-03] MEDS: CITALOPRAM HYDROBROMIDE 20 MG TAB PO SCH (09:59)
[2016-10-03] MEDS: ALPRAZolam 0.25 MG TAB PO SCH (09:59)
[2016-10-03] MEDS: CLOPIDOGREL 75 MG TAB PO SCH (09:59)
[2016-10-03] MEDS: ASPIRIN 81 MG CHEW TAB PO SCH (10:00)
[2016-10-03] MEDS: METOPROLOL TARTRATE 25 MG TAB PO SCH (10:00)
[2016-10-03] MEDS: ACETAMINOPHEN 325 MG TAB PO PRN (10:01)
[2016-10-03] MEDS ORDERED: ALPR.25 PO (10:07)
[2016-10-03] MEDS ORDERED: CELE20TA PO (10:07)
[2016-10-03] MEDS ORDERED: ACETAMINOPHEN 1000 MG/100 ML VIAL IV ONE (10:45)
--- NOTE | 2016-10-03 10:55 | HHI.DCPOC ---
Discharge Care Plan Diagnosis: (1) Delirium (2) Anxiety (3) Epistaxis (4) Chronic back pain (5) Afib (6) HTN (hypertension) (7) Hyperlipidemia (8) Status post above knee amputation of left lower extremity Goals to Promote Your Health * To prevent worsening of your condition and complications * To maintain your health at the optimal level Directions to Meet Your Goals Take your medications as prescribed Follow your dietary instruction Follow activity as directed Keep your appointments as scheduled Take your immunizations and boosters as scheduled If your symptoms worsen call your PCP, if no PCP go to Urgent Care Center or Emergency Room Smoking is Dangerous to Your Health. Avoid second hand smoke Call the 24-hour hour crisis hotline for domestic abuse at Maryjane Pina Oct 03, 2016 10:55
[2016-10-03] MEDS: SODIUM CHLORIDE 0.9% FLUSH 10 ML FLUSH IV FLUSH SCH (12:12)
--- NOTE | 2016-10-03 14:03 | HHI.DS ---
Discharge Summary Admission Date Sep 30, 2016 at 13:28 Discharge Date: Oct 03, 2016 Admitting Diagnosis altered mental status (1) Delirium Diagnosis: Principal (2) Epistaxis Diagnosis: Secondary (3) Anxiety Diagnosis: Secondary (4) Status post above knee amputation of left lower extremity Diagnosis: Secondary (5) HTN (hypertension) Diagnosis: Secondary (6) Hyperlipidemia Diagnosis: Secondary (7) Afib Diagnosis: Secondary (8) Chronic back pain Diagnosis: Secondary Brief History Mr. Horn is an 86 y/o WM who was recently hospitalized at [facility] from 09/04/16 to with an extensive hospitalization after he presented with cardiogenic shock and STEMI and underwent LHC with BM stent placed in the LAD and IABP, systolic CHF with EF 20-25%, and acute on chronic thrombosis/ischemic to the left leg TECHNICAL ACCOUNT REPRESENTATIVE to popliteal. He underwent pop/TPT endarterectomy and patch angioplasty, TECHNICAL ACCOUNT REPRESENTATIVE endarterectomy and patch angioplasty, L LE angiogram, Embolectomy of popliteal artery and embolectomy of peroneal artery on 09/09/16 and then eventually required left AKA on 09/13/16. He did have some A. fib with aberrancy and some idiopathic rhythms with a lot of PVCs. Pt stabilized clinically and was discharged to [facility] on 09/21 for rehab. Pt was transported back to [facility] on 09/30/16 after he became more lethargic than normal today. His caregiver is present at the time of the exam and states that his anxiety has been a major issue while he has been at rehab. At baseline he has been somewhat confused and for a long time has been debilitated due to chronic back pain. He was on Xanax, Gabapentin, and [place] while at rehab. CXR at admission noted stable chest x-ray with small bibasilar opacities likely representing small pleural effusions with associated volume loss and/or airspace consolidation. Labs are stable. Troponin is trending down from previous labs. CBC/BMP: 10/03/16 0646 10/03/16 0646 Significant Findings Laboratory Tests Test 10/01/16 10/02/16 10/03/16 07:27 12:00 06:46 Red Blood Count 3.69 MIL/MM3 3.51 MIL/MM3 3.76 MIL/MM3 (4.50-5.90) (4.50-5.90) (4.50-5.90) Hemoglobin 12.1 GM/DL 11.3 GM/DL 12.0 GM/DL (13.0-17.0) (13.0-17.0) (13.0-17.0) Hematocrit 35.9 % 33.7 % 36.3 % (39.0-51.0) (39.0-51.0) (39.0-51.0) Neutrophils (%) (Auto) 77.2 % 91.8 % 88.2 % (16.0-70.0) (16.0-70.0) (16.0-70.0) Monocytes (%) (Auto) 8.2 % (0.0-8.0) Neutrophils # (Auto) 8.1 TH/MM3 17.8 TH/MM3 12.4 TH/MM3 (1.8-7.7) (1.8-7.7) (1.8-7.7) Calcium Level 7.5 MG/DL 7.6 MG/DL 8.1 MG/DL (8.5-10.1) (8.5-10.1) (8.5-10.1) White Blood Count 19.4 TH/MM3 14.1 TH/MM3 (4.0-11.0) (4.0-11.0) Platelet Count 140 TH/MM3 135 TH/MM3 (150-450) (150-450) Lymphocytes (%) (Auto) 3.0 % 4.5 % (9.0-44.0) (9.0-44.0) Lymphocytes # (Auto) 0.6 TH/MM3 0.6 TH/MM3 (1.0-4.8) (1.0-4.8) Neutrophils % (Manual) 83 % (16-70) 82 % (16-70) Band Neutrophils % 13 % (0-6) 12 % (0-6) Lymphocytes % 1 % (9-44) 4 % (9-44) Neutrophils # (Manual) 18.6 TH/MM3 13.4 TH/MM3 (1.8-7.7) (1.8-7.7) Toxic Vacuolation PRESENT (NONE SEEN) Platelet Estimate LOW (NORMAL) LOW (NORMAL) Sodium Level 133 MEQ/L 134 MEQ/L (136-145) (136-145) Random Glucose 122 MG/DL (74-106) Imaging Last Impressions Chest X-Ray 09/30/16 1335 Signed Impressions: Service Date/Time: Friday, September 30, 2016 13:39 - CONCLUSION: Stable chest x-ray with small bibasilar opacities likely representing small pleural effusions with associated volume loss and/or airspace consolidation. Elias William MD Head CT 09/30/16 1027 Signed Impressions: Service Date/Time: Friday, September 30, 2016 12:13 - CONCLUSION: 1. Senescent changes. 2. No acute intracranial abnormality. Kenneth Choudhary MD PE at Discharge General: NAD, Awake and alert Chest: CTA Cardiac: Regular Abd: +BS, soft nondistended, mild RUQ tenderness, no guarding Ext: Left AKA Hospital Course Pt is an 86 y/o WM with CAD/recent hx of STEMI, PAD s/p left AKA, HTN, CHF, Hyperlipidemia, anxiety. 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 He underwent pop/TPT endarterectomy and patch angioplasty, TECHNICAL ACCOUNT REPRESENTATIVE endarterectomy and patch angioplasty, L LE angiogram, Embolectomy of popliteal artery and embolectomy of peroneal artery on 09/09/16 and then eventually required left AKA on 09/13/16. Pt stabilized clinically and was discharged to [facility] on 09/21 for rehab. Pt was transported back to [facility] on 09/30/16 after he became more lethargic than normal. His caregiver reported that his anxiety has been a major issue while he has been at rehab. At baseline he has been somewhat confused and for a long time has been debilitated due to chronic back pain. He was on Xanax, Gabapentin, and [place] while at rehab which is likely contributing to his confusion. CXR at admission noted stable chest x-ray with small bibasilar opacities likely representing small pleural effusions with associated volume loss and/or airspace consolidation. UA was negative. Troponin was trending down from previous labs. Gabapentin and [place] were held at admission. Anxiety is a significant issue for Mr. Horn so his Xanax was scheduled at BID dosing and his Celexa dose was increased. Pt was given gentle IVF and he did have clinical improvement to his baseline mental status. Pt is a DNR. His narcotics were STOPPED as this is likely contributing to his AMS Pt had some issues with epistaxis from the left nares which resolved with packing of guaze. Pt is stable for discharge back to SNF to continue rehab efforts. Pt will need to report for his previously scheduled followup with Dr. Castellanos on 10/28/16 @ 8:00AM He is to followup with his PCP 1 week after discharge from SNF. Pt Condition on Discharge: Stable Discharge Disposition: Discharge to SNF Discharge Instructions DIET: Follow Instructions for: Heart Healthy Diet Activities you can perform: Regular-No Restrictions Follow up Referrals: PCP Follow-up - [address] John Cooney Vascular Surgery - 1 Week with Lauri Castellanos MD New Medications: Alprazolam (Xanax) 0.25 Mg Tab 0.25 MG PO Q12HR anxiety #60 TAB Changed Medications: Citalopram (Celexa) 20 Mg Tab 40 MG PO DAILY Control Depression #0 Ref 0 TAB (Changed from: 20 MG; 30) Continued Medications: Albuterol 18 GM Inh (Ventolin Hfa 18 GM Inh) 90 Mcg/Act Aer 2 PUFF INH Q4-6H PRN SHORTNESS OF BREATH #1 Ref 0 INHALER Aspirin (Aspirin Low Strength) 81 Mg Chew 81 MG PO DAILY cad #30 Ref 0 EA Atorvastatin (Atorvastatin) 40 Mg Tab 40 MG PO HS Cholesterol Management #30 Ref 0 TAB Clopidogrel (Plavix) 75 Mg Tab 75 MG PO DAILY cad #30 Ref 0 TAB Digoxin (Digoxin) 0.125 Mg Tab 0.125 MG PO DAILY cad #30 Ref 0 TAB Furosemide (Furosemide) 40 Mg Tab 40 MG PO DAILY chf #0 TAB Insulin Aspart Inj (Novolog Inj) 1,000 Unit/10 Ml Vial 0 SQ ACHS Sliding Scale: 150-199=1 unit, 200-249=3 units, 250-299=5 units, 300- 349=7 units, > 349=9 units Blood Sugar Management #10 Ref 0 ML Lisinopril (Lisinopril) 5 Mg Tab 2.5 MG PO DAILY cad #30 TAB Metoprolol Tartrate (Metoprolol Tartrate) 25 Mg Tab 12.5 MG PO Q12HR cad #60 TAB Potassium Chloride ER (Potassium Chloride ER) 10 Meq Cap 10 MEQ PO BID Electrolyte Replacement #60 Ref 0 CAP Discontinued Medications: Alprazolam (Xanax) 0.5 Mg Tab 0.5 MG PO Q4H ANXIETY Ref 0 TAB Gabapentin (Gabapentin) 100 Mg Cap 100 MG PO BID Phantom Leg Pain #60 Ref 0 CAP Hydrocodone-Acetaminophen ([place]) 5-325 mg Tab 1 TAB PO Q6H PRN PAIN #60 Ref 0 TAB Maryjane Pina Oct 03, 2016 14:03
== END 2016-10-03 14:14 | disposition home or self-care (01) ==
LOC: NEPC 10:04 → NEDA 13:28 → NEPGCP 16:15
PROVIDERS: ADMIT Hospitalist; ATTEND Hospitalist
DX: R41.0 Disorientation, unspecified (principal); R04.0 Epistaxis; R10.11 Right upper quadrant pain; R94.31 Abnormal electrocardiogram [ECG] [EKG]; R53.83 Other fatigue; I25.119 Atherosclerotic heart disease of native coronary artery with unspecified angina pectoris; I11.0 Hypertensive heart disease with heart failure; I50.20 Unspecified systolic (congestive) heart failure; I21.02 ST elevation (STEMI) myocardial infarction involving left anterior descending coronary artery; I82.91 Chronic embolism and thrombosis of unspecified vein; I42.9 Cardiomyopathy, unspecified; J44.9 Chronic obstructive pulmonary disease, unspecified; I70.0 Atherosclerosis of aorta; I44.7 Left bundle-branch block, unspecified; I48.91 Unspecified atrial fibrillation; E78.5 Hyperlipidemia, unspecified; E78.00 Pure hypercholesterolemia, unspecified; G47.33 Obstructive sleep apnea (adult) (pediatric); E11.51 Type 2 diabetes mellitus with diabetic peripheral angiopathy without gangrene; I73.9 Peripheral vascular disease, unspecified; K21.9 Gastro-esophageal reflux disease without esophagitis; G43.909 Migraine, unspecified, not intractable, without status migrainosus; G31.9 Degenerative disease of nervous system, unspecified; F32.9 Major depressive disorder, single episode, unspecified; F41.9 Anxiety disorder, unspecified; M54.16 Radiculopathy, lumbar region; N40.0 Benign prostatic hyperplasia without lower urinary tract symptoms; M19.90 Unspecified osteoarthritis, unspecified site; Z79.4 Long term (current) use of insulin; Z86.73 Personal history of transient ischemic attack (TIA), and cerebral infarction without residual deficits; Z95.5 Presence of coronary angioplasty implant and graft; Z79.899 Other long term (current) drug therapy; Z79.82 Long term (current) use of aspirin; Z87.891 Personal history of nicotine dependence; Z66 Do not resuscitate; Z89.612 Acquired absence of left leg above knee
CPT/HCPCS: 70450; 71010; 80048; 80053; 80162; 81001; 82948; 83605; 83735; 84484; 85007; 85025; 85027; 85610; 85730; 87040; 93005; 96365; 96366; 96375; 96376; 97110; 97162; 99285; G0378; G8987; G8988; J0131; P9612